=== PATIENT | male | born 1945 | race Caucasian/White ===

== ENCOUNTER 2017-05-05 16:01 | Emergency (ER) | payer MEDICARE, OTHER ==
[2017-05-05 17:06] LABS: BASOPHILS 0.4 % (0-2); EOSINOPHILS 5.1 % (0-7); HEMATOCRIT 42.5 % (42.0-54.0); LYMPHOCYTES 27.9 % (15-50); MCHC 32.9 g/dL (31.0-37.0); MCV 91.2 fL (80.0-100.0); MEAN PLATELET VOLUME 10.1 fL (7.4-10.4); MONOCYTES 8.7 % (2-11); NEUTROPHILS 57.9 % (40-80); PLATELET COUNT 121 10x3/uL (130-400); RBC 4.66 10x6/uL (4.20-6.10); RDW 12.9 % (11.5-14.5); WBC 5.1 10x3/uL (4.8-10.8)
[2017-05-05 17:40] LABS: ALBUMIN 3.7 g/dL (3.4-5.0); ANION GAP 11.9 mmol/L (8-16); BILIRUBIN - TOTAL 0.32 mg/dL (0.2-1.3); CALCIUM 8.8 mg/dL (8.5-10.1); CARBON DIOXIDE 26.4 mmol/L (21.0-32.0); CREATININE - SERUM 1.6 mg/dL (0.6-1.3); POTASSIUM - SERUM 4.3 mmol/L (3.5-5.1); PROTEIN - SERUM 6.6 g/dL (6.4-8.2)
== END 2017-05-05 20:04 | disposition home or self-care (01) ==
LOC: D.ER 16:01
PROVIDERS: Nurse Practitioner Family
DX: R10.9 Unspecified abdominal pain (principal); R14.0 Abdominal distension (gaseous); I10 Essential (primary) hypertension

== ENCOUNTER → 2018-01-25 12:31 | Outpatient (CLI) | payer MEDICARE, OTHER | END | disposition home or self-care (01) | LOC: D.RAD 12:31 | DX: M54.5 Low back pain (principal) ==

== ENCOUNTER → 2019-05-24 07:02 | Outpatient (CLI) | payer MEDICARE, OTHER | END | disposition home or self-care (01) | LOC: D.CT 05-17 09:30 | PROVIDERS: ATTEND Internal Medicine Gastroenterology | DX: I87.9 Disorder of vein, unspecified (principal); R10.9 Unspecified abdominal pain; R09.89 Other specified symptoms and signs involving the circulatory and respiratory systems ==

== ENCOUNTER 2019-07-20 19:32 | Inpatient (IN) | payer MEDICARE, OTHER ==
[~2019-07-20] VITALS: Ht 175.3 cm; Wt 83.0 kg
--- NOTE | ~2019-07-20 | HEMODYNAMI ---
PATIENT:RYAN JUDD MEDICAL RECORD: [id number] : 41 LOCATION:[id number] ADMISSION DATE: 07/20/19 Generatedon:07/21/201915:00 Patient name: RYAN JUDD Patient #: [id number] SSN: : 1945 Date of study: 07/21/2019 Page: Of Hemodynamic Procedure Report Patient Data Patient Demographics Procedure consent was obtained First Name: RYAN Gender: Male Last Name: DUTCH : 1945 Middle Initial: F Age: 73 year(s) Patient #: [id number] Race: Unknown Additional ID: [id number] Contact details Address: [address] [place] [address] State: [place] City: [place] Zip code: [address] Past Medical History Allergies Allergen Reaction Date Comments Reported Other allergy 07/21/2019 sedation meds, patient unsure of which ones Admission Admission Data Admission Date: 07/20/2019 Admission Time: 20:12 Room #: D.[id number] Height (in.): 69 BSA: 1.99 (m2) Height (cm.): 175.26 BMI: 27.02 (kg/m2) Weight (lbs.): 183 Weight (kg.): 83.01 Procedure Procedure Types Cath Procedure Peripheral Cath Diagnostic Procedure Piano Tuner Peripheral Procedures Biliary PTC Procedure Description Procedure Date Procedure Date: 07/21/2019 Procedure Start Time: 14:12 Procedure Staff Name Function Brendon Kimbrough MD Performing Physician Mary Badillo RT Cylinder Batcher Robyn Jesus RN Nurse Jordan Yu RT Scrub Delon Quispe Additional personnel Procedure Data Cath Procedure Fluoroscopy Diagnostic fluoroscopy Total fluoroscopy Time: 9 time: 9 min min Diagnostic fluoroscopy Total fluoroscopy dose: 206 dose: 206 mGy mGy Contrast Material Contrast Material Type Amount (ml) Isovue 300 20 Procedure Medications Medication Administration Route Dosage Heparin Flush Bag added to field 2 bags (1000units/500ml NS) Lidocaine 1% added to field 20 Ancef (1Gm/50ml NS) I.V.P.B 2 g Rocephin I.V. 1 g Hemodynamics Rest BSA: 1.99 (m2) O2 Consumption: Estimated: 225.37 (ml/min) O2 Consumption indexed : Estimated:113.25 (ml/min/m) Heart Rate: 66 (bpm) Snapshots Pre Cath Intra NCS Post Cath Vital Signs Time Heart Resp SPO2 etCO2 NIBP (mmHg) Rhythm Pain Sedation Rate (ipm) (%) (mmHg) Status Level (bpm) 13:46:43 58 13 100 21.8 135/61(109) NSR 0 (11) 10(A) , No pain 13:50:57 65 13 96 0 99/56(69) NSR 0 (11) 10(A) , No pain 13:55:05 64 15 97 0 92/47(64) NSR 0 (11) 10(A) , No pain 13:59:10 65 16 98 0 82/45(62) NSR 0 (11) 10(A) , No pain 14:03:14 66 16 98 0 74/44(58) NSR 0 (11) 10(A) , No pain 14:07:53 70 17 98 0 96/49(67) NSR 0 (11) 10(A) , No pain 14:12:09 67 17 98 0 83/47(68) NSR 0 (11) 10(A) , No pain 14:16:09 67 17 98 0 96/54(73) NSR 0 (11) 10(A) , No pain 14:20:14 69 17 98 0 92/51(66) NSR 0 (11) 10(A) , No pain 14:24:18 67 16 97 0 92/51(69) NSR 0 (11) 10(A) , No pain 14:28:24 65 16 97 0 94/48(71) NSR 0 (11) 10(A) , No pain 14:32:30 65 16 97 0 102/49(78) NSR 0 (11) 10(A) , No pain 14:36:37 67 16 97 0 106/55(83) NSR 0 (11) 10(A) , No pain 14:40:43 70 18 97 0 118/64(89) NSR 0 (11) 10(A) , No pain 14:44:55 67 18 97 0 116/58(87) NSR 0 (11) 10(A) , No pain 14:49:07 65 17 98 0 118/59(94) NSR 0 (11) 10(A) , No pain 14:53:19 61 15 98 0 118/57(92) NSR 0 (11) 10(A) , No pain 14:57:20 0 No Cuff NSR 0 (11) 10(A) , No pain Medications Time Medication Route Dose Verified Delivered Reason Notes Eff ectiveness by by 13:39:11 Heparin Flush added 2 Brendon Olivas used for Bag to bags Kaylan Kimbrough MD procedure (1000units/500ml field MD NS) 13:39:22 Lidocaine 1% added 20ml Brendon Olivas for local to vial Kaylan Kimbrough MD anesthetic field 14:01:18 Ancef (1Gm/50ml I.V.P.B 2 g Brendon Carlson Per NS) Edin Kimbrough RN physician 14:01:41 Rocephin I.V. 1g Brendon Carlson Per Edin Kimbrough RN physician Procedure Log Time Note 13:32:23 Patient Height : 69 inches 13:32:28 Patient Weight : 183 lbs 13:33:16 Time tracking: Regular hours (M-F 7:00 - 5:00) 13:39:11 Heparin Flush Bag (1000units/500ml NS) 2 bags added to field was administered by Brendon Kimbrough MD; used for procedure; Verbal order read back and verified. 13:39:22 Lidocaine 1% 20ml vial added to field was administered by Brendon Kimbrough MD; for local anesthetic; Verbal order read back and verified. 13:45:10 Plan of Care:Hemodynamics will remain stable., Cardiac rhythm will remain stable., Comfort level will be maintained., Respiratory function will remain adequate., Patient/ family verbilizes understanding of procedure., Procedure tolerated without complication., Recovers from procedure without complications.. 13:45:18 Patient received from Med/Surg to IR Alert and oriented. Tansferred to table in Supine position. 13:45:21 Signed procedure consent form obtained from patient. 13:45:26 H&P Date Dictated: 07/21/2019 Within 30 days and on chart.. 13:45:31 Warm blankets applied, and nae hugger turned on for patient comfort. 13:45:33 ECG and BP/O2 sat monitors applied to patient. 13:45:35 Vital chart was started 13:45:37 Baseline sample Acquired. :45:40 Full Disclosure recording started 13:45:41 - 13:45:43 Pre-procedure instructions explained to patient. 13:45:43 Pre-op teaching completed and patient verbalized understanding. 13:45:46 Family unavailable. 13:45:49 Patient NPO since Midnight. 13:46:33 Patient allergic to Other allergysedation meds, patient unsure of which ones 13:46:37 Is the patient allergic to Iodine/contrast media? No. 13:46:44 Patient diabetic? No. 13:46:45 - 13:46:48 ----Pre-sedation anethsthesia assessment.----see anesthesia notes for monitoring of patient during procedure 13:47:18 - 13:47:29 Right abdomen area was prepped with chlora-prep and draped in sterile fashion 13:47:40 Use device set IR Diagnostic 13:47:42 Tegaderm 4 x 4 ([id number]) opened to sterile field. 13:47:43 Sterile Angiographic Pack opened to sterile field. 13:47:44 Bag Decanter () opened to sterile field. 13:47:51 - 13:48:33 3a) 45-59 Moderately reduced kidney function. 13:49:03 Maximum allowable contrast dose (3.7 X eGFR X 0.75)133 ml. 13:49:10 Fire Safety Assessment: A--An alcohol-based skin anteseptic being used preoperatively., C--Open oxygen or nitrous oxide is being used. 13:49:13 - 14:01:18 Ancef (1Gm/50ml NS) 2 g I.V.P.B was administered by Robyn Jesus RN; Per physician; Verbal order read back and verified. 14:01:41 Rocephin 1g I.V. was administered by Robyn Jesus RN; Per physician; Verbal order read back and verified. 14:06:19 NITINOL .018 80cm wire ([id number]) opened to sterile field. 14:06:27 KIT, INTRODUCER ACCUSTICK II W/C ([id number]) opened to sterile field. 14:11:49 Physician arrived 14:11:51 --------ALL STOP TIME OUT------ 14:11:51 Final Timeout: patient, procedure, and site verified with staff and physician. All members of the team are in agreement. 14:12:08 Procedure started. 14:12:14 Local anesthetic to Abdominal area with Lidocaine 1% by Brendon Kimbrough MD.INITIAL ACCESS ONLY 14:16:02 CHIBA 22 X 15 needle opened to sterile field. 14:29:14 GLIDE WIRE Angled Super Stiff 180cm ([id number]) opened to sterile field. 14:32:46 GLIDE CATHETER 5FR ANGLED 65cm (CG507) opened to sterile field. 14:33:23 ROADRUNNER .035 145 glide wire ([id number]) opened to sterile field. 14:33:36 AMPLATZ Super stiff 180cm wire ([id number]) opened to sterile field. 14:37:56 STOPCOCK 3-Way Large Bore ([id number]) opened to sterile field. 14:37:57 Cook BILIARY 10.2 FR drainage catheter ([id number]) opened to sterile field . 14:37:58 BAG, DRAINAGE EMPTY 600ML W/LUCIA (MIP962) opened to sterile field. 14:44:02 Procedure ended.(Physican Out) 14:44:32 Fluoroscopy time 09.00 minutes. 14:44:37 Fluoroscopy dose: 206 mGy 14:44:37 Flurop Dose total: 206 14:44:45 Contrast amount:Isovue 300 20ml. 15:00:29 Vital chart was stopped Device Usage Item Name Manufacture Quantity Catalog Hospital Part Current Minimal Lot# / Number Charge Number Stock Stock Serial# Code Tegaderm 4 x 3M 1 1626W [id number] 5 4 (1626W) Sterile Cardinal 1 [id number] 344856 214106 5 Angiographic Health Pack Bag Decanter Microtek 1 2001S 191202 09113 279654 5 (2001S) Medical Inc. NITINOL .018 Medtronic 1 [id number] 741885 976488 5 80cm wire ([id number]) KIT, [place] 1 [id number] 001150 931896 237356 5 INTRODUCER Scientific ACCUSTICK II W/C ([id number]) CHIBA 22 X Cook Medical 1 R18129 261888 310099 5 [id number] 15 needle GLIDE WIRE Terumo 1 BC8227 068843 071036 5 Angled Super Stiff 180cm (PV2600) GLIDE Terumo 1 CG507 461965 624704 5 CATHETER 5FR ANGLED 65cm (CG507) [facility] 1 L84683 178570 785518 940673 5 [id number] .035 145 glide wire (X59983) AMPLATZ [place] 1 [id number] 931373 490507 126333 5 Super stiff Scientific 180cm wire ([id number]) [facility] 1 C75761 203144 6359 407717 5 [id number] 3-Way Large Bore (G74146) Cook BILIARY [facility] 1 D64809 914490 206533 669306 5 [id number] 10.2 FR drainage catheter (X86056) BAG, Merit 1 VZO921 943740 129057 024849 5 [id number] DRAINAGE Medical EMPTY 600ML W/LUCIA (ACD854) Signature Audit [place] Stage Time Signature Unsigned Intra-Procedure 07/21/2019 Mary Badillo 3:00:26 PM RT(R) [facility] [address] [place] [address]
[2019-07-20] MEDS ORDERED: ALTACE10 MG PO (19:44)
[2019-07-20] MEDS ORDERED: NORVASC5 MG PO (19:44)
[2019-07-20] MEDS ORDERED: ZOFRAN4 MG PO (19:45)
[2019-07-20] MEDS ORDERED: OMEPRAZOLE20 M1 PO (19:45)
[2019-07-20] MEDS ORDERED: TYLENOL W/CODEI1 TAB PO (19:45)
[2019-07-20] MEDS ORDERED: TIROSINT88 MCG PO (19:46)
[2019-07-20 20:11] VITALS: BP 126/51
[2019-07-20 20:22] LABS: BASOPHILS 0.3 % (0-2); EOSINOPHILS 2.9 % (0-7); HEMOGLOBIN 9.7 g/dL (13.5-17.5); IMMATURE GRANULOCYTES 0.6 % (0-5); LYMPHOCYTES 13.2 % (15-50); MCHC 30.3 g/dL (31.0-37.0); MCV 92.2 fL (80.0-100.0); MEAN PLATELET VOLUME 9.3 fL (7.4-10.4); MONOCYTES 6.4 % (2-11); NEUTROPHILS 76.6 % (40-80); PLATELET COUNT 350 10x3/uL (130-400); RBC 3.47 10x6/uL (4.20-6.10); RDW 16.7 % (11.5-14.5)
[2019-07-20 20:30] LABS: APTT 26.4 SECONDS (22.8-39.4); INR 1.17 (0.85-1.17); PROTIME 14.8 SECONDS (11.6-15.0)
[2019-07-20 20:31] LABS: CALC OSMOLALITY 284 mosm/kg (275-300); CARBON DIOXIDE 26.9 mmol/L (21.0-32.0); CHLORIDE - SERUM 101 mmol/L (98-107); CREATININE - SERUM 1.8 mg/dL (0.6-1.3); GLUCOSE 169 mg/dL (74-106); SODIUM 140 mmol/L (136-145); UREA NITROGEN 17 mg/dL (7-18); eGFR NON AFRICAN AMERICAN 39 mL/min (90-120)
[2019-07-20 20:48] LABS: ALBUMIN 2.3 g/dL (3.4-5.0); ALKALINE PHOSPHATASE 1245 U/L (30-120); ALT (SGPT) 199 U/L (10-68); AMYLASE - SERUM 90 U/L (25-115); BILIRUBIN - TOTAL 17.56 mg/dL (0.2-1.3); CKMB 1.4 U/L (0.0-3.6); CREATINE KINASE 50 UL (21-232); LIPASE 1193 U/L (73-393); MAGNESIUM - SERUM 1.9 mg/dL (1.8-2.4); TROPONIN-I < 0.017 ng/mL (0.000-0.060)
--- NOTE | 2019-07-20 22:30 | NUR ---
PATIENT ARRIVED VIA WHEELCHAIR ACCOMPANIED BY ER STAFF. NO S/S OF ACUTE DISTRESS. PATIENT C/O NAUSEA AND ABDOMINAL PAIN. PATIENT HAS IV IN RIGHT FOREARM, NORMAL SALINE @ 125 ML/HR. IV IS PATENT WITHOUT REDNESS, SWELLING, OR TENDERNESS. PATIENT IS JAUNDICED. PATIENT AMBULATED TO BATHROOM WITHOUT ASSISTANCE. PATIENT STATES THAT HE WAS ALLERGIC TO SOME KIND OF SEDATIVE THAT WAS USED FOR SURGERY THAT MADE HIM VOMIT PROFUSELY. HE SAID HE COUDLN'T REMEMBER THE NAME OF THE SEDATIVE.
[2019-07-20 23:26] VITALS: BP 137/57; BMI 27.0
[2019-07-21] VITALS (12 sets, daily range): BP systolic 116–171; BP diastolic 49–76; Ht 175.3 cm; Wt 83.0 kg
[2019-07-21 04:35] LABS: BASOPHILS 0.3 % (0-2); EOSINOPHILS 3.6 % (0-7); HEMATOCRIT 29.6 % (42.0-54.0); IMMATURE GRANULOCYTES 0.5 % (0-5); LYMPHOCYTES 15.9 % (15-50); MCHC 30.4 g/dL (31.0-37.0); MCV 91.9 fL (80.0-100.0); MEAN PLATELET VOLUME 9.6 fL (7.4-10.4); NEUTROPHILS 72.7 % (40-80); PLATELET COUNT 293 10x3/uL (130-400); RBC 3.22 10x6/uL (4.20-6.10); RDW 16.6 % (11.5-14.5); WBC 6.6 10x3/uL (4.8-10.8)
[2019-07-21 05:07] LABS: ANION GAP 11.1 mmol/L (8-16); BILIRUBIN - TOTAL 14.1 mg/dL (0.2-1.3); CALCIUM 8.2 mg/dL (8.5-10.1); CARBON DIOXIDE 27.3 mmol/L (21.0-32.0); CREATININE - SERUM 1.5 mg/dL (0.6-1.3); POTASSIUM - SERUM 3.4 mmol/L (3.5-5.1); PROTEIN - SERUM 5.5 g/dL (6.4-8.2)
[2019-07-21 05:21] LABS: ALBUMIN 1.7 g/dL (3.4-5.0)
[2019-07-21 08:30] LABS: INR 1.17 (0.85-1.17); PROTIME 14.8 SECONDS (11.6-15.0)
[2019-07-21 09:08] LABS: APTT 34.4 SECONDS (22.8-39.4)
--- NOTE | 2019-07-21 13:07 | NUR ---
PATIENT PREOPED AT THIS TIME.
--- NOTE | 2019-07-21 19:02 | NUR ---
PATIENT IN BED WITH IV INTACT. NO COMPLAINTS OR SIGNS OF DISTRESS. EMPTIED DRAIN. WANTS PAIN MEDS SOON CAN HAVE THEM. REPORT GIVEN TO WAREHOUSE HANDLER. CALL LIGHT WITHIN REACH.
--- NOTE | 2019-07-21 20:00 | NUR ---
PATIENT RESTING IN BED WITH EYES CLOSED. NO S/S OF DISTRESS. NO C/O AT THIS TIME. PATIENT HAS IV IN RIGHT FOREARM, NORMAL SALINE @ 125 ML/HR. IV IS PATENT WITHOUT REDNESS, SWELLING, OR TENDERNESS. PATIENT HAS A DRAIN TO THE RIGHT SIDE, DRESSING C/D/I. DRAIN FLUSHES WELL. PATIENT HAS A DISTENTED STOMACH. PATIENT HAS DARK URINE. PATIENT HAS YELLOW SCLERA, AND BODY IS YELLOW. PATIENT IS ON A FULL LIQUID DIET. CALL LIGHT WITHIN REACH. WILL CONTINUE TO MONITOR.
[2019-07-22] VITALS: BP 115/52
--- NOTE | 2019-07-22 03:47 | NUR ---
I have reviewed this patient and I concur with the Shift Assessment completed by the Licensed Practical Nurse today this shift.
[2019-07-22 04:00] VITALS: BP 136/63
[2019-07-22 07:00] LABS: BASOPHILS 0.1 % (0-2); EOSINOPHILS 2.3 % (0-7); HEMATOCRIT 28.1 % (42.0-54.0); HEMOGLOBIN 8.4 g/dL (13.5-17.5); IMMATURE GRANULOCYTES 0.4 % (0-5); LYMPHOCYTES 11.9 % (15-50); MCH 28.2 pg (26.0-34.0); MCHC 29.9 g/dL (31.0-37.0); MEAN PLATELET VOLUME 9.6 fL (7.4-10.4); MONOCYTES 4.7 % (2-11); NEUTROPHILS 80.6 % (40-80); PLATELET COUNT 305 10x3/uL (130-400); RBC 2.98 10x6/uL (4.20-6.10); RDW 16.8 % (11.5-14.5); WBC 7.7 10x3/uL (4.8-10.8)
[2019-07-22 07:05] LABS: MCV 94.3 fL (80.0-100.0)
[2019-07-22 07:11] LABS: CEA 2.7 ng/mL (0.0-4.7)
[2019-07-22 07:21] LABS: ALBUMIN 1.7 g/dL (3.4-5.0); ANION GAP 13.2 mmol/L (8-16); BILIRUBIN - TOTAL 7.69 mg/dL (0.2-1.3); CALCIUM 8.1 mg/dL (8.5-10.1); CARBON DIOXIDE 24.5 mmol/L (21.0-32.0); CREATININE - SERUM 1.4 mg/dL (0.6-1.3); POTASSIUM - SERUM 3.7 mmol/L (3.5-5.1); PROTEIN - SERUM 5.8 g/dL (6.4-8.2)
--- NOTE | 2019-07-22 08:21 | NUR ---
ALERT AND ORIENTED. LUNGS CLEAR BILATERALLY. HEART SOUNDS S1 AND S2 HEARD IN ALL WILLS. BOWEL SOUNDS ACTIVE X 4. BILI DRAIN TO RIGHT SIDE PATENT. SKIN INTACT WITHOUT REDNESS. IV TO RFA PATENT WITHOUT REDNESS. DENIES NEEDS. BED LOW. CALL THEODORE AND PERSONAL ITEMS IN REACH. WILL CONTINUE TO MONITOR.
[2019-07-22 08:32] VITALS: BP 144/70
--- NOTE | 2019-07-22 09:34 | HP ---
PATIENT: RYAN JUDD MEDICAL RECORD: [id number] ACCOUNT: [id number] LOCATION:D.MS [facility]39 : 41 ADMISSION DATE: 07/20/19 PCP: MIGUE HERNÁNDEZ DO HISTORY AND PHYSICAL EXAMINATION REASON FOR ADMISSION: Abdominal pain and jaundice. HISTORY OF PRESENT ILLNESS: The patient is a 73-year-old male who lives in [place]. He is a patient of Dr. Migue Hernández's. He had noticed in February some vague left upper abdominal discomfort. He had an EGD to evaluate this showing esophageal stricture. He had dilatation by Dr. Lezama. His pain persisted. He ultimately had an ultrasound of his abdomen and a PIPIDA scan that showed decreased ejection fraction. CT scan ultimately showed a mass in his head of his pancreas and liver metastases. Biopsies were done at [facility], which returned stage IV pancreatic cancer. He became more jaundiced. His urine turned Coke colored and more nausea and pain. He went to Dr. Rangel office yesterday afternoon and Dr. Rangel wanted to direct admit him for his concerns of biliary stenosis and a bilirubin of 14.1. He denies fever. He has had bryan-colored stools. Admits to mild nausea and Tylenol #3 has been helping his pain. Says he has diarrhea every 3 days. PAST MEDICAL HISTORY: Hypothyroidism, essential hypertension, right bundle branch block with negative change in EKG recently, history of extrinsic asthma, eosinophilic esophagitis, multiple food and respiratory allergies, esophageal stricture. PAST SURGICAL HISTORY: T&A as a child, septoplasty in 1989. SOCIAL HISTORY: He is . His is 80 and she is a retired dentist. He has an engineering degree and retired from [employer] from [employer] to this area. He is nonsmoker, nondrinker lifelong. FAMILY HISTORY: Mother of CHF. Father of laryngeal cancer from smoking and drinking. He has one brother in good health. HOME MEDICATIONS: Altace 10 mg a day, amlodipine 5 mg a day, Tylenol #3 one every 6 hours for pain, Prilosec 20 mg b.i.d., Zofran 4 mg every 6 hours for nausea, levothyroxine 88 mcg p.o. every morning before meals. ALLERGIES: SOME TYPE OF SEDATIVE AND MORPHINE MAKES HIS ABDOMEN HURT. REVIEW OF SYSTEMS: GENERAL: He has been fatigued and this February he has lost from 209 pounds to 183. Denies fever. HEENT: No recent visual change, sinus congestion or sore throat. He said his eyes have been yellow. RESPIRATORY: No severe cough. CARDIAC: No exertional chest pain, claudication or edema. GASTROINTESTINAL: He has had intermittent nausea with left upper quadrant abdominal pain as mentioned. He has had intermittent loose stools that are bryan-colored. Denies vomiting. Did have dysphagia that improved with esophageal dilatation in May. CARDIAC: No exertional rest chest pain, claudication or edema. MUSCULOSKELETAL: Denies arthralgias. NEUROLOGIC: Denies headache, visual change, history of seizures, memory loss or HISTORY AND PHYSICAL [id number] RYAN JUDD confusion. GENITOURINARY: Nocturia once nightly. No dysuria. Urine has been Coke colored. INTEGUMENT: Yellow skin recently occurring around June 20 when his liver functions elevated. PSYCHIATRIC: Denies depress mood. PHYSICAL EXAMINATION: VITAL SIGNS: Temperature is 98.1 Fahrenheit, pulse 70, respirations 17, blood pressure 137/57 with a sat 97% on room air. GENERAL: The patient is alert and oriented. Normocephalic with male pattern balding. His eyes show mild icterus. Pupils are reactive. Oropharynx unremarkable. NECK: Supple. CHEST: Clear. HEART: Regular without murmur. ABDOMEN: Mildly distended with active bowel sounds. He is tender in the epigastrium and left upper quadrant. No masses palpable. GENITOURINARY: Unremarkable. RECTAL: Deferred. EXTREMITIES: No CC&E. NEUROLOGICAL: Oriented to person, place, and time. Cranial nerves are grossly intact. Gait was not tested. LABORATORY AND DIAGNOSTIC DATA: White count is 8000 with H&H of 9.7 and 32.0, platelet count 350,000. Chemistry; potassium is low at 3. Sodium is 140, creatinine is 1.8, BUN is 9, glucose is 169, nonfasting. Total bilirubin is 17.56. AST is 266, ALT is 199, alkaline phosphatase is 1245. Liver functions were normal at the end of May. Lipase is 1193. CT scan done at [facility] was interpreted by Dr. Rangel and reportedly shows pancreatic mass approximately 3 cm in size with hepatic metastases. Chest x-ray here is clear. ASSESSMENT: 1. Obstructive jaundice due to stage IV pancreatic cancer. 2. Hypokalemia. 3. Anemia. 4. History of EGD with esophageal stricture. 5. Hypertension. 6. History of chronic right bundle branch block. 7. Gastroesophageal reflux disease. 8. Acute renal insufficiency. PLAN: Dr. Rangel is scheduling with IR for biliary drainage today. Discussed with the patient. He did have some issues with morphine last night, we will switch to Dilaudid for pain. TRANSINT:[id number] Voice Confirmation ID: [id number] DOCUMENT ID: [id number] HISTORY AND PHYSICAL [id number] RYAN JUDD TIMOTHY MD at 0934 CC: [id number] DICTATION DATE: 07/21/19 07 COMMUNICATIONS DIRECTOR: 07/21/19 0915 ADM IN [facility] [address] [place] [address]
[2019-07-22 11:47] VITALS: BP 137/65
[2019-07-22 15:48] VITALS: BP 110/50
--- NOTE | 2019-07-22 15:57 | NUR ---
RESTING IN BED. DENIES NEEDS. WILL CONTINUE TO MONITOR.
[2019-07-22 20:00] VITALS: BP 120/60
[2019-07-23] VITALS: BP 126/58
[2019-07-23 06:51] LABS: BASOPHILS 0.3 % (0-2); EOSINOPHILS 4.9 % (0-7); HEMATOCRIT 28.3 % (42.0-54.0); HEMOGLOBIN 8.5 g/dL (13.5-17.5); IMMATURE GRANULOCYTES 0.8 % (0-5); LYMPHOCYTES 18.1 % (15-50); MCH 28.3 pg (26.0-34.0); MCV 94.3 fL (80.0-100.0); MEAN PLATELET VOLUME 9.5 fL (7.4-10.4); NEUTROPHILS 69.9 % (40-80); PLATELET COUNT 344 10x3/uL (130-400); WBC 7.3 10x3/uL (4.8-10.8)
--- NOTE | 2019-07-23 07:05 | NUR ---
ALERT AND ORIENTED. LUNGS CLEAR BILATERALLY. HEART SOUNDS S1 AND S2 HEARD IN ALL WILLS. BOWEL SOUNDS ACTIVE X 4. BILI DRAIN TO RIGHT SIDE PATENT. SKIN OTHERWISE INTACT WITHOUT REDNESS. IV TO RFA PATENT WITHOUT REDNESS. DENIES NEEDS. BED LOW. CALL THEODORE AND PERSONAL ITEMS IN REACH. WILL CONTINUE TO MONITOR.
[2019-07-23 07:23] LABS: ANION GAP 11.3 mmol/L (8-16); CALCIUM 8.7 mg/dL (8.5-10.1); CREATININE - SERUM 1.3 mg/dL (0.6-1.3); POTASSIUM - SERUM 3.3 mmol/L (3.5-5.1)
[2019-07-23 07:38] VITALS: BP 145/55
--- NOTE | 2019-07-23 10:16 | NUR ---
RESTING IN BED. DENIES NEEDS. WILL CONTINUE TO MONITOR.
[2019-07-23 11:27] LABS: ALBUMIN 1.9 g/dL (3.4-5.0); BILIRUBIN - DIRECT 5.19 mg/dL (0.00-0.30); BILIRUBIN - INDIRECT 1.29 mg/dL (0.00-1.00); BILIRUBIN - TOTAL 6.48 mg/dL (0.2-1.3); PROTEIN - SERUM 6.2 g/dL (6.4-8.2)
[2019-07-23 13:03] VITALS: BP 152/69
[2019-07-23 17:32] VITALS: BP 140/62
[2019-07-23 20:00] VITALS: BP 136/60
[2019-07-24] VITALS: BP 114/69
[2019-07-24 04:00] VITALS: BP 150/62
[2019-07-24 05:40] LABS: ALBUMIN 1.8 g/dL (3.4-5.0); ANION GAP 12.6 mmol/L (8-16); BILIRUBIN - TOTAL 5.36 mg/dL (0.2-1.3); CALCIUM 8.2 mg/dL (8.5-10.1); CREATININE - SERUM 1.3 mg/dL (0.6-1.3); POTASSIUM - SERUM 3.6 mmol/L (3.5-5.1); PROTEIN - SERUM 5.9 g/dL (6.4-8.2)
--- NOTE | 2019-07-24 07:30 | NUR ---
PATIENT C/O NAUSEA, GAVE 25MG PHENERGAN IM TO LEFT VENTROGLUTEAL.
[2019-07-24 07:48] VITALS: BP 162/73
--- NOTE | 2019-07-24 07:59 | NUR ---
ALERT AND ORIENTED, SITTING UP IN CHAIR IN ROOM. BILI DRAIN TO LEFT ABDOMEN. EMPTIED 200ML. IV TO RIGHT FOREARM, NS INFUSING @ 75ML/HR. SITE PATENT WITHOUT REDNESS OR SWELLING. DENIES ANY NEEDS AT THIS TIME. CALL LIGHT IN REACH. WILL CONTINUE TO MONITOR.
[2019-07-24 12:27] VITALS: BP 155/75
--- NOTE | 2019-07-24 12:40 | NUR ---
SITTING UP EATING LUNCH. PATIENT IS WITHOUT DISTRESS.
--- NOTE | 2019-07-24 14:13 | NUR ---
Nutrition follow-up: Diet advanced to regular as tolerated over the weekend PO intake ~75% average of last 3 meals Labs reviewed Wt: 129# +BM Pt continues to have intermittent nausea, vomiting Will provide food choices and honor all food preferences. RDN following.
[2019-07-24 16:18] VITALS: BP 150/79
--- NOTE | 2019-07-24 19:00 | NUR ---
ALERT AND ORIENTED, RESTING IN BED WITH EYES OPEN. NO C/O PAIN. NO S/S OF ACUTE DISTRESS NOTED. IV INFILTRATED, DISCONTINUED IV CATHETER TIP INTACT. TRIED TO RESITE, UNSUCESSFUL. CALL LIGHT IN REACH. WILL CONTINUE TO MONITOR.
[2019-07-25] VITALS: BP 143/64
[2019-07-25 04:53] LABS: BASOPHILS 0.4 % (0-2); EOSINOPHILS 9.2 % (0-7); HEMOGLOBIN 8.6 g/dL (13.5-17.5); IMMATURE GRANULOCYTES 1.1 % (0-5); MCH 28.2 pg (26.0-34.0); MCHC 29.7 g/dL (31.0-37.0); MCV 95.1 fL (80.0-100.0); MEAN PLATELET VOLUME 9.4 fL (7.4-10.4); MONOCYTES 6.3 % (2-11); PLATELET COUNT 338 10x3/uL (130-400); RBC 3.05 10x6/uL (4.20-6.10); RDW 17.1 % (11.5-14.5); WBC 7.1 10x3/uL (4.8-10.8)
[2019-07-25 05:19] LABS: ALBUMIN 1.9 g/dL (3.4-5.0); ANION GAP 9.8 mmol/L (8-16); BILIRUBIN - TOTAL 5.01 mg/dL (0.2-1.3); CALCIUM 8.3 mg/dL (8.5-10.1); CARBON DIOXIDE 23.6 mmol/L (21.0-32.0); CREATININE - SERUM 1.3 mg/dL (0.6-1.3); POTASSIUM - SERUM 3.4 mmol/L (3.5-5.1); PROTEIN - SERUM 6.1 g/dL (6.4-8.2)
[2019-07-25 05:50] VITALS: BP 150/63
--- NOTE | 2019-07-25 07:15 | NUR ---
ALERT AND ORIENTED, RESTING IN BED WITH EYES OPEN. NO C/O PAIN. NO S/S OF ACUTE DISTRESS NOTED. DRAIN TO RIGHT SIDE, BROWN/PEREIRA DRAINAGE. UP AD IVAN. IV TO LEFT HAND, NS INFUSING @ 75ML/HR SITE PATENT WITHOUT REDNESS OR SWELLING. DENIES ANY NEEDS AT THIS TIME. CALL LIGHT IN REACH. WILL CONTINUE TO MONITOR.
[2019-07-25] MEDS ORDERED: PHENERGAN25 M1 PO (07:54)
[2019-07-25] MEDS ORDERED: TYLENOL W/CODEI1 TAB PO (07:57)
[2019-07-25] MEDS ORDERED: K-TAB10 MEQ PO (08:03)
[2019-07-25 09:16] VITALS: BP 142/70
--- NOTE | 2019-07-25 10:12 | MORECARE ---
CASE MANAGEMENT DISCHARGE SUMMARY PATIENT: RYAN JUDD UNIT: [id number] ADM DATE: 07/20/19 AGE: 73 : 43 SEX: M ROOM/BED: D.2239 AUTHOR: PEARL AL PHYSICIAN: REFERRING PHYSICIAN: MIKE NUÑEZ MD DATE OF SERVICE: 07/25/19 Discharge Plan Patient Name: RYAN JUDD Facility: [facility]:[place] : 1945 Planned Disposition: Home or Self Care Anticipated Discharge Date: Discharge Date: Expected LOS: Initial Reviewer: [email or web address] Initial Review Date: 07/20/2019 Generated: 07/25/19 11:11 am Comments DCP- Discharge Planning Updated by [email or web address]: Fior Wilkins on 07/25/19 9:[address] Patient Name: RYAN JUDD Admission Status: ER Accout number: [id number] Admission Date: 07-20-2019 : 1945 Admission Diagnosis:OBSTRUCTION OF BILE DUCT Attending: MIKE NUÑEZ Current LOS: 5 Anticipated DC Date: Planned Disposition: Home or Self Care Primary Insurance: MEDICARE A & B Discharge Planning Comments: CM met with patient to complete initial dc planning assessment. CM educated patient on the CM role and verbal consent given by patient to complete assessment. Patient lives at home with his , where he states he is independent with his care. At discharge patient plans to return home and feels this is a safe discharge. His will be driving him home. CM discussed availability of home health, rehab services, and medical equipment. IMM served and explained. Patient stated that Frida will be teaching his drain care. Patient denied known discharge needs at this time. CM will continue to follow and will assist as needed with dc plans/needs. [place]: Fior Wilkins DCPIA - Discharge Planning Initial Assessment Updated by [email or web address]: Fior Wilkins on 07/25/19 10:04 am * Is the patient Alert and Oriented? Yes * How many steps to enter\exit or inside your home? * PCP BETTY * Pharmacy [address] [facility] * Preadmission Environment Home with Family * ADLs Independent * Equipment None * List name and contact numbers for known caregivers / representatives who currently or will assist patient after discharge: YIMI () [phone] * Verbal permission to speak to the caregivers and representatives has been obtained from the patient. N/A * Community resources currently utilized None * Additional services required to return to the preadmission environment? No * Can the patient safely return to the preadmission environment? Yes * Has this patient been hospitalized within the prior 30 days at any hospital? No Coverage Notice Reviewer: [email or web address] Nevin Wilkins Notice Issued Date-Time: 07/25/2019 10:00 Notice Type: IM Discharge Notice Notice Delivered To: Patient Relationship to Patient: Manager Hospice Name: Delivery Method: HAND - Hand Delivered Roberta Days: Prior Verbal Notification: Recipient Understood Notice: Yes Recipient Signature: Yes Med Rec Note Co-signed by Attending: Coverage Notice Comment: Patient Name: RYAN JUDD Page [phone] at 1012 All edits/amendments must be made on the electronic document DICTATION DATE: 07/25/19 1011 CHILD LIFE THERAPIST: JOJO 07/25/19 1011 RPT#: [id number] DC DATE: STATUS: ADM IN [facility] [address] [place] [address] END OF REPORT
--- NOTE | 2019-07-25 12:30 | NUR ---
PATIENT DISCHARGED HOME WITH VIA WHEELCHAIR ACCOMPANIED BY HOSPITAL STAFF. DISCONTINUED IV, CATHETER TIP INTACT. DRAIN FLUSH EDUCATION PROVIDED TO AND PATIENT BY THIS NURSE AND INTERVENTIONAL RADIOLOGY. WENT OVER DISCHARGE INSTRUCTIONS WITH PATIENT AND , VERBALLY ACKNOWLEGDED INSTRUCTIONS. DENIES ANYTHING FURTHER.
--- NOTE | 2019-07-26 09:24 | MORECARE ---
CASE MANAGEMENT DISCHARGE SUMMARY PATIENT: RYAN JUDD UNIT: [id number] ADM DATE: 07/20/19 AGE: 73 : 43 SEX: M ROOM/BED: D.2239 AUTHOR: PEARL AL PHYSICIAN: REFERRING PHYSICIAN: MIKE NUÑEZ MD DATE OF SERVICE: 07/26/19 Discharge Plan Patient Name: RYAN JUDD Facility: [facility] : 1945 Planned Disposition: Home or Self Care Anticipated Discharge Date: Discharge Date: 07/25/2019 Expected LOS: Initial Reviewer: [email or web address] Initial Review Date: 07/20/2019 Generated: 07/26/19 10:24 am Comments DCP- Discharge Planning Updated by [email or web address]: Fior Wilkins on 07/25/19 9:[address] Patient Name: RYAN JUDD Admission Status: ER Accout number: [id number] Admission Date: 07-20-2019 : 1945 Admission Diagnosis:OBSTRUCTION OF BILE DUCT Attending: MIKE NUÑEZ Current LOS: 5 Anticipated DC Date: Planned Disposition: Home or Self Care Primary Insurance: MEDICARE A & B Discharge Planning Comments: CM met with patient to complete initial dc planning assessment. CM educated patient on the CM role and verbal consent given by patient to complete assessment. Patient lives at home with his , where he states he is independent with his care. At discharge patient plans to return home and feels this is a safe discharge. His will be driving him home. CM discussed availability of home health, rehab services, and medical equipment. IMM served and explained. Patient stated that Frida will be teaching his drain care. Patient denied known discharge needs at this time. CM will continue to follow and will assist as needed with dc plans/needs. Development Intern: Fior Wilkins DCPIA - Discharge Planning Initial Assessment Updated by [email or web address]: Fior Wilkins on 07/25/19 10:04 am * Is the patient Alert and Oriented? Yes * How many steps to enter\exit or inside your home? * PCP BETTY * Pharmacy [address] [facility] * Preadmission Environment Home with Family * ADLs Independent * Equipment None * List name and contact numbers for known caregivers / representatives who currently or will assist patient after discharge: YIMI () [phone] * Verbal permission to speak to the caregivers and representatives has been obtained from the patient. N/A * Community resources currently utilized None * Additional services required to return to the preadmission environment? No * Can the patient safely return to the preadmission environment? Yes * Has this patient been hospitalized within the prior 30 days at any hospital? No Coverage Notice Reviewer: [email or web address] Nevin Wilkins Notice Issued Date-Time: 07/25/2019 10:00 Notice Type: IM Discharge Notice Notice Delivered To: Patient Relationship to Patient: Jewelry Inspector Name: Delivery Method: HAND - Hand Delivered Roberta Days: Prior Verbal Notification: Recipient Understood Notice: Yes Recipient Signature: Yes Med Rec Note Co-signed by Attending: Coverage Notice Comment: Last DP export: 07/25/19 9:12 am Patient Name: RYAN JUDD Page 40598 at 0924 All edits/amendments must be made on the electronic document DICTATION DATE: 07/26/19923 CUFFING MACHINE OPERATOR: JOJO 07/26/19923 RPT#: [id number] DC DATE:07/25/19 STATUS: DIS IN [facility] [address] [place] [address] END OF REPORT
== END 2019-07-25 12:46 | disposition home or self-care (01) | DRG 445 ==
LOC: D.ER 19:32 → D.MS 20:12
PROVIDERS: Family Medicine; General Practice; Internal Medicine Hematology & Oncology; Internal Medicine Medical Oncology; ADMIT Family Medicine; ATTEND Family Medicine
PROC: 0F9730Z Drainage of Common Hepatic Duct with Drainage Device, Percutaneous Approach (ICD-10-PCS; principal; 2019-07-21 14:00)
DX: K83.1 Obstruction of bile duct (principal); C25.0 Malignant neoplasm of head of pancreas; C78.7 Secondary malignant neoplasm of liver and intrahepatic bile duct; E87.6 Hypokalemia; N18.3 Chronic kidney disease, stage 3 (moderate); E03.9 Hypothyroidism, unspecified

== ENCOUNTER 2019-07-28 08:22 | Outpatient (CLI) | payer MEDICARE, OTHER ==
[~2019-07-28] VITALS: Ht 175.3 cm; Wt 77.3 kg
[~2019-07-28 08:22] MED LIST: ALTACE10 MG PO; K-TAB10 MEQ PO; NORVASC5 MG PO; OMEPRAZOLE20 M1 PO; PHENERGAN25 M1 PO; TIROSINT88 MCG PO; TYLENOL W/CODEI1 TAB PO; ZOFRAN4 MG PO
[2019-07-28 08:49] LABS: ANION GAP 22.4 mmol/L (8-16); CALCIUM 9.4 mg/dL (8.5-10.1); CARBON DIOXIDE 19.7 mmol/L (21.0-32.0); CREATININE - SERUM 6.2 mg/dL (0.6-1.3); POTASSIUM - SERUM 4.1 mmol/L (3.5-5.1)
[2019-07-28] MEDS ORDERED: BREO ELLIPTA 11 EACH INH (09:05)
[2019-07-28] MEDS ORDERED: VENTOLIN HFA [SP8 GM INH (09:05)
[2019-07-28] MEDS ORDERED: CENTRUM MEN'S1 EACH PO (09:06)
[2019-07-28] MEDS ORDERED: VITAMIN B-121000 MCG PO (09:07)
[2019-07-28 09:14] VITALS: BP 96/44; Ht 175.3 cm; Wt 77.3 kg
[2019-07-28 09:14] LABS: HEMATOCRIT 33.8 % (42.0-54.0); HEMOGLOBIN 10.5 g/dL (13.5-17.5); LYMPHOCYTES 10.8 % (15-50); MCH 29.5 pg (26.0-34.0); MCHC 31.1 g/dL (31.0-37.0); MCV 94.9 fL (80.0-100.0); MEAN PLATELET VOLUME 9.1 fL (7.4-10.4); NEUTROPHILS 77.9 % (40-80); RBC 3.56 10x6/uL (4.20-6.10); RDW 17.1 % (11.5-14.5); WBC 12.1 10x3/uL (4.8-10.8)
[2019-07-28 09:15] LABS: PLATELET COUNT 577 10x3/uL (130-400)
[2019-07-28 09:45] LABS: APTT 40.5 SECONDS (22.8-39.4); INR 1.18 (0.85-1.17)
--- NOTE | 2019-07-28 10:26 | NUR ---
DR. JUAREZ CANCELLED FOR JUMP IN CREATNINE LEVELS AND HYPOTENSION. CANCEL PROCEDURE AND SEND TO ER FOR FURTHER EVALUATION.
[2019-07-28] MEDS ORDERED: BENADRYL25 MG PO (14:58)
== END 2019-07-28 10:26 | disposition home or self-care (01) ==
LOC: D.SP 08:22 → D.RAD 10:30
PROVIDERS: ATTEND General Practice
DX: C25.9 Malignant neoplasm of pancreas, unspecified (principal); I95.9 Hypotension, unspecified; Z53.9 Procedure and treatment not carried out, unspecified reason

== ENCOUNTER 2019-07-28 10:49 | Inpatient (IN) | payer MEDICARE, OTHER ==
[~2019-07-28] VITALS: Ht 175.3 cm; Wt 86.1 kg
--- NOTE | ~2019-07-28 | HEMODYNAMI ---
PATIENT:RYAN JUDD MEDICAL RECORD: [id number] : 41 LOCATION:[facility] D.2109 ADMISSION DATE: 07/28/19 Generatedon:07/28/201918:14 Patient name: RYAN JUDD Patient #: [id number] SSN: : 1945 Date of study: 07/28/2019 Page: Of Hemodynamic Procedure Report Patient Data Patient Demographics Procedure consent was obtained First Name: RYAN Gender: Male Last Name: DUTCH : 1945 Middle Initial: F Age: 73 year(s) Patient #: [id number] Race: Unknown Additional ID: [id number] Contact details [address]: [address] [place] [address] State: [place] City: [place] Zip code: [address] Past Medical History Allergies Allergen Reaction Date Comments Reported Other allergy 07/21/2019 sedation meds, patient unsure of which ones Admission Admission Data Admission Date: 07/28/2019 Admission Time: 12:48 Room #: D.2109 Procedure Procedure Types Cath Procedure Peripheral Cath Diagnostic Procedure Biliary Cholangio Thru Existing Procedure Description Procedure Date Procedure Date: 07/28/2019 Procedure Start Time: 18:02 Procedure Staff Name Function Brendon Kimbrough MD Performing Physician MARY TITUS RT Monitor Jordan Yu RT Scrub Alcira Perez RN Nurse Procedure Data Cath Procedure Fluoroscopy Diagnostic fluoroscopy Total fluoroscopy Time: 2.4 time: 2.4 min min Contrast Material Contrast Material Type Amount (ml) Isovue 300 15 Hemodynamics Rest Pre Cath Intra NCS Post Cath Procedure Log Time Note 17:51:07 MARY TITUS RT (R) sent for patient. Start room use. 17:51:09 Time tracking: Regular hours (M-F 7:00 - 5:00) 17:51:15 Patient received from Med II to IR Alert and oriented. Tansferred to table in Supine position. 17:51:18 Signed procedure consent form obtained from patient. 17:51:19 Warm blankets applied, and nae hugger turned on for patient comfort. 17:51:21 Correct patient and procedure confirmed by team. 17:51:23 - 17:51:27 H&P Date Dictated: 07/28/2019 Within 30 days and on chart.. 17:51:29 Pre-procedure instructions explained to patient. 17:51:29 Pre-op teaching completed and patient verbalized understanding. 17:51:38 Patient NPO since Midnight. 17:52:23 Is the patient allergic to Iodine/contrast media? No. 17:54:10 IV patent on arrival in left wrist with 0.9% NaCl at KVO. 17:54:30 Right Abdomen was prepped with chlora-prep and draped in sterile fashion. 17:54:32 Alarms reviewed by Maggi Sweeney 17:54:33 Sharps counted by scrub and verified by Vance 17:54:35 - 17:54:44 Use device set IR Diagnostic 17:54:45 Bag Decanter (2002) opened to sterile field. 17:54:46 Sterile Angiographic Pack opened to sterile field. 17:54:46 Tegaderm 4 x 4 (1626W) opened to sterile field. 17:58:00 Physician arrived 17:58:01 --------ALL STOP TIME OUT------ 17:58:02 Final Timeout: patient, procedure, and site verified with staff and physician. All members of the team are in agreement. 17:58:09 Procedure started. 18:00:09 Full Disclosure recording started 18:01:10 GLIDE WIRE Angled Super Stiff 180cm (LU0313) opened to sterile field. 18:02:02 Local anesthetic to Abdominal area with Lidocaine 1% by Brendon Kimbrough MD.INITIAL ACCESS ONLY 18:08:33 Cook BILIARY 10.2 FR drainage catheter ([id number]) opened to sterile field . 18:08:33 BAG, DRAINAGE EMPTY 600ML W/LUCIA (BTI916) opened to sterile field. 18:08:34 STOPCOCK 3-Way Large Bore ([id number]) opened to sterile field. 18:08:34 GLIDE WIRE Angled Super Stiff 180cm (AN2545) opened to sterile field. 18:08:35 SUTURE ETHILON 2-0 BLK MONO FS opened to sterile field. 18:11:00 Procedure ended.(Physican Out) 18:11:40 Fluoroscopy time 02.40 minutes. 18:11:46 Dose Area Product 54 mGy/cm. 18:12:21 Contrast amount:Isovue 300 15ml. 18:12:41 Sharps counted by scrub and verified by R.N. 18:12:43 Insertion/operative site no bleeding no hematoma. 18:13:03 Post-op/insertion site Right Abdominal area dressed using a 4 x 4 and Tegaderm and statlock 18:13:15 Post procedure instruction explained to patient.Patient verbalizes understanding. 18:13:16 Procedure and supply charges have been captured, reviewed, submitted an d are correct. 18:13:19 Operative report dictated upon procedure completion. 18:13:23 Patient transfered to [facility] with Bed. Device Usage Item Name Manufacture Quantity Catalog Hospital Part Current Minimal Lot# / Number Charge Number Stock Stock Serial# Code Bag Decanter Microtek 1 [id number] [id number] 5 () Medical Inc. Sterile Cardinal 1 [id number] 932874 891889 5 Angiographic Health Pack Tegaderm 4 x 3M 1 [id number] 454061 490916 422351 5 4 (1626W) GLIDE WIRE Terumo 1 [id number] 787470 409430 833454 5 Super Stiff Angled 260cm (WN1012) GLIDE WIRE Terumo 2 [id number] 151329 507818 5 Angled Super Stiff 180cm (KX7063) Cook BILIARY Cook Medical 1 [id number] 964422 092561 000183 5 [id number] 10.2 FR drainage catheter (V59677) BAG, Merit 1 [id number] 838357 918112 588434 5 DRAINAGE Medical EMPTY 600ML W/LUCIA (YJL718) STOPCOCK Ubly Medical 1 W08768 196789 9699 742579 [id number] 3-Way Large Bore (A22369) SUTURE Ethicon 1 [id number] 524873 202911 5 ETHILON 2-0 BLK MONO FS Signature Audit [place] Stage Time Signature Unsigned Intra-Procedure 07/28/2019 MARY TITUS RT 6:13:55 PM (R) [facility] [address] [place] [address]
--- NOTE | ~2019-07-28 | HEMODYNAMI ---
PATIENT:RYAN JUDD MEDICAL RECORD: [id number] : 41 [facility] D.2109 [id number] AD[facility]ION DATE: 07/28/19 Generatedon:08/02/201915:20 Patient name: RYAN JUDD Patient #: [id number] SSN: : 1945 Date of study: 07/31/2019 Page: Of Hemodynamic Procedure Report Patient Data Patient Demographics Procedure consent was obtained First Name: RYAN Gender: Male Last Name: DUTCH : 1945 Middle Initial: F Age: 73 year(s) Patient #: [id number] Race: Unknown Additional ID: [id number] Contact details Address: [address] [place] [address] State: [place] City: [place] Zip code: [address] Past Medical History Allergies Allergen Reaction Date Comments Reported Other allergy 07/21/2019 sedation meds, patient unsure of which ones Other allergy 07/31/2019 sedation meds, patient unsure of what ones Admission Admission Data Admission Date: 07/28/2019 Admission Time: 12:48 Room #: D.2109 Height (in.): 69 BSA: 1.93 (m2) Height (cm.): 175.26 BMI: 25.1 (kg/m2) Weight (lbs.): 170 Weight (kg.): 77.11 Procedure Procedure Types Cath Procedure Peripheral Cath Diagnostic Procedure Applied Technologist Peripheral Procedures Biliary Biliary Stent Placement Procedure Description Procedure Date Procedure Date: 07/31/2019 Procedure Start Time: 14:18 Procedure Staff Name Function Mary Badillo RT Magnetic Locater Jordan Yu RT Scrub Brendon Kimbrough MD Performing Physician Robyn Jesus RN Nurse Alcira Perez RN Nurse Procedure Data Cath Procedure Fluoroscopy Diagnostic fluoroscopy Total fluoroscopy Time: 6.7 time: 6.7 min min Diagnostic fluoroscopy Total fluoroscopy dose: 155 dose: 155 mGy mGy Contrast Material Contrast Material Type Amount (ml) Isovue 300 30 Diagnostic catheters Device Type Used For End Catheter Placement Merit [facility] Pigtail VESSEL SIZING 5Fr 65CM catheter ([id number]) Procedure Medications Medication Administration Route Dosage Heparin Flush Bag added to field 1 bags (1000units/500ml NS) Lidocaine 1% added to field 20 Rocephin I.V. 1 g Hemodynamics Rest BSA: 1.93 (m2) O2 Consumption: Estimated: 223.13 (ml/min) O2 Consumption indexed : Estimated:115.61 (ml/min/m) Heart Rate: 72 (bpm) Snapshots Pre Cath Intra NCS Post Cath Vital Signs Time Heart Resp SPO2 etCO2 NIBP (mmHg) Rhythm Pain Sedation Rate (ipm) (%) (mmHg) Status Level (bpm) 14:05:09 70 16 100 24.2 156/80(118) NSR 0 (11) 10(A) , No pain 14:09:35 70 16 100 25 153/70(117) NSR 0 (11) 10(A) , No pain 14:13:58 67 13 100 0 114/59(83) NSR 0 (11) 10(A) , No pain 14:18:22 61 12 100 23.4 104/56(81) NSR 0 (11) 10(A) , No pain 14:22:32 66 11 100 26.5 104/55(72) NSR 0 (11) 10(A) , No pain 14:27:27 76 16 100 21.2 128/75(104) NSR 0 (11) 10(A) , No pain 14:31:41 68 15 100 26.5 136/71(107) NSR 0 (11) 10(A) , No pain 14:35:57 73 17 100 0 143/72(115) NSR 0 (11) 10(A) , No pain 14:40:54 74 19 100 15.9 142/78(109) NSR 0 (11) 10(A) , No pain 14:45:14 69 17 100 17.4 133/66(97) NSR 0 (11) 10(A) , No pain 14:49:30 67 20 100 19.7 133/70(101) NSR 0 (11) 10(A) , No pain Medications Time Medication Route Dose Verified Delivered Reason Notes Effec tiveness by by 14:16:18 Heparin Flush added 1 Brendon Olivas used for Bag to bags Kaylan Kimbrough MD procedure (1000units/500ml field MONTERO NS) 14:16:33 Lidocaine 1% added 20ml Brendno Olivas used for to vial Kaylan Kimbrough MD procedure field MONTERO 14:16:55 Rocephin I.V. 1 g Brendon Eli used for Chris Kimbrough hair spinner MD Procedure Log Time Note 13:55:23 Patient Height : 69 inches 13:55:28 Patient Weight : 170 lbs 13:56:01 Time tracking: Regular hours (M-F 7:00 - 5:00) 13:56:15 Plan of Care:Hemodynamics will remain stable., Cardiac rhythm will remain stable., Comfort level will be maintained., Respiratory function will remain adequate., Patient/ family verbilizes understanding of procedure., Procedure tolerated without complication., Recovers from procedure without complications.. 13:56:23 Patient received from Med II to IR Alert and oriented. Tansferred to table in Supine position. 13:56:26 Signed procedure consent form obtained from patient. 13:56:37 H&P Date Dictated: 07/31/2019 Within 30 days and on chart.. 13:56:38 Pre-procedure instructions explained to patient. 13:56:39 Pre-op teaching completed and patient verbalized understanding. 13:56:41 Family unavailable. 13:56:43 Patient NPO since Midnight. 13:57:26 Patient allergic to Other allergysedation meds, patient unsure of what ones 13:57:32 Is the patient allergic to Iodine/contrast media? No. 13:57:35 - 13:57:37 ----Pre-sedation anethsthesia assessment.----see anesthesia notes for monitoring of patient during procedure 13:58:11 - 13:58:22 Right abdomen area was prepped with chlora-prep and draped in sterile fashion 13:58:24 - 13:58:28 Use device set IR Diagnostic 13:58:31 Sterile Angiographic Pack opened to sterile field. 13:58:32 Bag Decanter () opened to sterile field. 14:03:54 ECG and BP/O2 sat monitors applied to patient. 14:03:55 Vital chart was started 14:03:57 Baseline sample Acquired. 14:03:58 Full Disclosure recording started 14:03:59 - 14:12:54 Cook BILIARY 10.2 FR drainage catheter (Z08495) opened to sterile field . 14:12:56 BAG, DRAINAGE EMPTY 600ML W/LUCIA (MHW035) opened to sterile field. 14:12:57 STOPCOCK 3-Way Large Bore (S42218) opened to sterile field. 14:12:59 Tegaderm 4 x 4 (1626W) opened to sterile field. 14:13:14 ARROW SUPERFLEX 8FR 45CM sheath opened to sterile field. 14:13:28 AMPLATZ Super stiff 180cm wire ([id number]) opened to sterile field. 14:16:18 Heparin Flush Bag (1000units/500ml NS) 1 bags added to field was administered by Brendon Kimbrough MD; used for procedure; Verbal order read back and verified. 14:16:28 Physician arrived 14:16:29 --------ALL STOP TIME OUT------ 14:16:30 Final Timeout: patient, procedure, and site verified with staff and physician. All members of the team are in agreement. 14:16:33 Lidocaine 1% 20ml vial added to field was administered by Brendon Kimbrough MD; used for procedure; Verbal order read back and verified. 14:16:55 Rocephin 1 g I.V. was administered by Alcira Perez RN; used for procedure; Verbal order read back and verified. 14:17:47 Fire Safety Assessment: A--An alcohol-based skin anteseptic being used preoperatively., C--Open oxygen or nitrous oxide is being used. 14:17:55 Procedure started. 14:18:01 Local anesthetic to Abdominal area with Lidocaine 1% by Brendon Kimbrough MD.INITIAL ACCESS ONLY 14:22:05 GLIDE CATHETER 5FR ANGLED 65cm (CG507) opened to sterile field. 14:22:10 GLIDE WIRE Angled Super Stiff 180cm (XM3833) opened to sterile field. 14:22:20 SUTURE ETHILON 2-0 BLK MONO FS opened to sterile field. 14:25:44 A [facility] Pigtail VESSEL SIZING 5Fr 65CM catheter ([id number]) was advanced over the wire and used for . 14:33:56 [facility] 10FR 23CM sheath opened to sterile field. 14:34:26 VIABIL 10 X 6 stent ([id number]) was deployed across Undefined1 . 14:36:31 INFLATOR BasixTOUCH (DS1923) opened to sterile field. 14:37:42 Inflate balloon Inflation number: 1 A Evercross 8 x 40 x 80 ([id number]) was prepped and advanced across the Undefined1 , then inflated . 14:45:27 Procedure ended.(Physican Out) 14:46:02 Fluoroscopy time 06.70 minutes. 14:46:06 Fluoroscopy dose: 155 mGy 14:46:06 Flurop Dose total: 155 14:51:42 Report given to Med II. 14:52:22 Vital chart was stopped 14:52:28 Full Disclosure recording stopped 15:19:20 Contrast amount:Isovue 300 30ml. Intervention Summary Intervention Notes Time ActionType Lesion and Equipment Used Action# Pressure Duration Attributes 14:34:26 Deploy self Undefined1 VIABIL 10 X 6 1 expanding stent stent ([id number]) 14:37:42 Inflate Undefined1 Evercross 8 x 1 0 00:00 balloon 40 x 80 ([id number]) Device Usage Item Name Manufacture Quantity Catalog Hospital Part Current Minim al Lot# / Number Charge Number Stock Stock Serial# Code Cori [place] 1 [id number] 994412 5 Angiographic Health Pack Bag Decanter Microtek 1 [id number] 01925 650587 5 () Medical Inc. Cook BILIARY Cook Medical 1 Z51917 173809 085457 520029 5 [id number] 10.2 FR drainage catheter (C45939) BAG, DRAINAGE Merit 1 [id number] 928227 928863 596774 5 EMPTY 600ML Medical W/LUCIA (JPS349) STOPCOCK 3-Way Cook Medical 1 [id number] 282951 5517 296668 5 [id number] Large Bore (I03215) Tegaderm 4 x 4 3M 1 1626W 922796 690847 938459 5 (1626W) ARROW Teleflex 1 [id number] 862041 597242 5 SUPERFLEX 8FR 45CM sheath AMPLATZ Super Douglas 1 [id number] 045352 621228 823650 5 stiff 180cm Scientific wire ([id number]) GLIDE CATHETER Terumo 1 [id number] 725021 103259 5 5FR ANGLED 65cm (CG507) GLIDE WIRE Terumo 1 FA6973 710739 790516 5 Angled Super Stiff 180cm (CX9432) SUTURE ETHILON Ethicon 1 664H 332434 127373 5 2-0 BLK MONO FS Merit UHF Merit 1 [id number] 944812 158716 5 Pigtail VESSEL Medical SIZING 5Fr 65CM catheter ([id number]) [facility] 10FR [facility] 1 293742 235506 107855 5 23CM sheath VIABIL 10 X 6 [place] 1 [id number] 788871 933207 5 [id number] stent ([id number]) INFLATOR Merit 1 WB9731 825580 760148 654585 5 BasixTODraftMix Medical (HI4356) Evercross 8 x Medtronic 1 [id number] 035608 207680 141053 5 40 x 80 ([id number]) Signature Audit [place] Stage Time Signature Unsigned Intra-Procedure 07/31/2019 Mary Badillo RT(R) 2:52:18 PM RT(R) 08/02/2019 3:19:10 PM Intra-Procedure 08/02/2019 Mary Badillo 3:20:49 PM RT(R) [facility] [address] [place] [address]
--- NOTE | ~2019-07-28 | HEMODYNAMI ---
PATIENT:RYAN JUDD MEDICAL RECORD: [id number] : 41 LOCATION[facility] [id number] ADMISSION DATE: 07/28/19 Generatedon:08/02/201915:16 Patient name: RYAN JUDD Patient #: [id number] SSN: : 1945 Date of study: 08/02/2019 Page: Of Hemodynamic Procedure Report Patient Data Patient Demographics Procedure consent was obtained First Name: RYAN Gender: Male Last Name: DUTCH : 1945 Middle Initial: F Age: 73 year(s) Patient #: [id number] Race: Unknown Additional ID: [id number] Contact details Address: [address] [place] [address] State: [place] City: [place] Zip code: [address] Past Medical History Allergies Allergen Reaction Date Comments Reported Other allergy 07/21/2019 sedation meds, patient unsure of which ones Other allergy 07/31/2019 sedation meds, patient unsure of what ones Admission Admission Data Admission Date: 07/28/2019 Admission Time: 12:48 Room #: 2109 Height (in.): 69 BSA: 1.93 (m2) Height (cm.): 175.26 BMI: 25.1 (kg/m2) Weight (lbs.): 170 Weight (kg.): 77.11 Procedure Procedure Types Cath Procedure Peripheral Cath Diagnostic Procedure Biliary Cholangio Thru Existing Procedure Description Procedure Date Procedure Date: 08/02/2019 Procedure Start Time: 14:49 Procedure Staff Name Function Brendon Kimbrough MD Performing Physician Jordan Yu RT Scrub Mary Badillo RT Monitor Robyn Jesus RN Nurse Hemodynamics Rest BSA: 1.93 (m2) O2 Consumption: Estimated: 217.21 (ml/min) O2 Consumption indexed : Estimated:112.54 (ml/min/m) Heart Rate: 64 (bpm) Snapshots Pre Cath Intra NCS Post Cath Vital Signs Time Heart Resp SPO2 etCO2 NIBP (mmHg) Rhythm Pain Sedation Rate (ipm) (%) (mmHg) Status Level (bpm) 14:23:33 0 No Cuff NSR 0 (11) 10(A) , No pain 14:27:32 0 No Cuff NSR 0 (11) 10(A) , No pain 14:31:32 0 No Cuff NSR 0 (11) 10(A) , No pain 14:35:32 62 13 98 0 No Cuff NSR 0 (11) 10(A) , No pain 14:39:48 59 12 98 0 166/79(111) NSR 0 (11) 10(A) , No pain 14:44:10 63 14 98 0 164/78(101) NSR 0 (11) 10(A) , No pain 14:48:34 59 11 99 0 163/74(106) NSR 0 (11) 10(A) , No pain 14:52:56 61 12 100 0 180/78(108) NSR 0 (11) 10(A) , No pain 14:57:25 60 13 99 0 172/81(138) NSR 0 (11) 10(A) , No pain 15:01:49 64 13 99 0 173/82(113) NSR 0 (11) 10(A) , No pain 15:06:11 69 28 99 0 174/91(114) NSR 0 (11) 10(A) , No pain 15:10:35 62 21 99 0 181/84(114) NSR 0 (11) 10(A) , No pain 15:15:34 61 17 99 0 Measuring NSR 0 (11) 10(A) , No pain Procedure Log Time Note 14:21:45 Patient Height : 69 inches 14:21:45 Patient Weight : 170 lbs 14:22:04 [facility] RT (R) (CV) sent for patient. Start room use. 14:22:10 Time tracking: Regular hours (M-F 7:00 - 5:00) 14:22:17 Plan of Care:Hemodynamics will remain stable., Cardiac rhythm will remain stable., Comfort level will be maintained., Respiratory function will remain adequate., Patient/ family verbilizes understanding of procedure., Procedure tolerated without complication., Recovers from procedure without complications.. 14:22:21 Use device set IR Diagnostic 14:22:23 Bag Decanter (2002S) opened to sterile field. 14:22:23 Sterile Angiographic Pack opened to sterile field. 14::23 Tegaderm 4 x 4 ([id number]) opened to sterile field. 14:22:34 Patient received from Med II to IR Alert and oriented. Tansferred to table in Supine position. 14:22:37 Signed procedure consent form obtained from patient. 14:22:40 Full Disclosure recording started 14:22:41 Correct patient and procedure confirmed by team. 14:22:43 ECG and BP/O2 sat monitors applied to patient. 14:23:00 - 14:23:04 H&P Date Dictated: 08/02/2019 Within 30 days and on chart.. 14:23:04 Pre-procedure instructions explained to patient. 14:23:05 Pre-op teaching completed and patient verbalized understanding. 14:23:07 Patient NPO since Midnight. 14:27:18 Right abdomen area was prepped with chlora-prep and draped in sterile fashion 14:27:20 Alarms reviewed by R. N. 14:27:21 Sharps counted by scrub and verified by R.N. 14:32:57 IV patent on arrival in port with 0.45%NaCl at KVO. 14:33:23 - 14:34:44 Baseline sample Acquired. 14:43:54 Physician arrived 14:43:54 --------ALL STOP TIME OUT------ 14:43:56 Final Timeout: patient, procedure, and site verified with staff and physician. All members of the team are in agreement. 14:49:15 Procedure started. 14:49:22 Local anesthetic to Abdominal area with Lidocaine 1% by Brendon Kimbrough MD.INITIAL ACCESS ONLY 14:52:35 GLIDE WIRE Angled Super Stiff 180cm ([id number]) opened to sterile field. 14:56:39 GLIDE CATHETER 5FR ANGLED 65cm (CG507) opened to sterile field. 14:56:50 TORQUE DEVICE PLASTIC .038 ( TD01) opened to sterile field. 15:04:58 Abscession 10 FR drainage catheter ([id number]) opened to sterile field. 15:04:59 STOPCOCK 3-Way Large Bore ([id number]) opened to sterile field. 15:05:00 BAG, DRAINAGE EMPTY 600ML W/LUCIA ([id number]) opened to sterile field. 15:12:11 Procedure ended.(Physican Out) 15:13:26 Report given to Med II. 15:16:22 Vital chart was stopped Device Usage Item Name Manufacture Quantity Catalog Hospital Part Current Minima l Lot# / Number Charge Number Stock Stock Serial# Code Bag Decanter Microtek 1 [id number] [id number] [id number] 5 () Medical Inc. Sterile Cardinal 1 [id number] 297438 5 Angiographic Health Pack Tegaderm 4 x 3M 1 [id number] [id number] 174857 098604 5 4 (1626W) GLIDE WIRE Terumo 1 [id number] 865176 727936 5 Angled Super Stiff 180cm (CA4374) GLIDE Terumo 1 [id number] 492987 921626 5 CATHETER 5FR ANGLED 65cm (CG507) TORQUE [place] 1 TD01 589297 655304 040331 5 DEVICE Scientific PLASTIC .038 ( TD01) Abscession Angiodynamics 1 [id number] 805587 349292 138291 5 10 FR drainage catheter ([id number]) STOPCOCK [employer] 1 [id number] 016789 0118 741784 5 [id number] 3-Way Large Bore ([id number]) BAG, [employer] 1 [id number] 684764 523516 420912 5 DRAINAGE EMPTY 600ML W/LUCIA (BIW606) Signature Audit [place] Stage Time Signature Unsigned Intra-Procedure 08/02/2019 Mary Badillo 3:16:18 PM RT(R) [facility] [address] [place] [address]
[~2019-07-28 10:49] MED LIST changes: +BREO ELLIPTA 11 EACH INH; +CENTRUM MEN'S1 EACH PO; +VENTOLIN HFA [SP8 GM INH; +VITAMIN B-121000 MCG PO
[2019-07-28 14:37] LABS: BILIRUBIN 2+ (NEGATIVE); GLUCOSE NEGATIVE (NEGATIVE); KETONE NEGATIVE (NEGATIVE); NITRITE NEGATIVE (NEGATIVE); RED CELLS - URINE 0-5 /hpf (0-5); SPECIFIC GRAVITY 1.025 (1.005-1.020); UROBILINOGEN NORMAL (NORMAL)
[2019-07-28 14:38] LABS: AMORPHOUS SEDIMENT <1+ /lpf (NONE SEEN); BACTERIA MODERATE /hpf (NEGATIVE); EPITHELIAL CELLS RARE /hpf (0-5); HYALINE CAST 0-5 /lpf (NONE SEEN)
[2019-07-28] MEDS ORDERED: BENADRYL25 MG PO (14:58)
--- NOTE | 2019-07-28 17:58 | NUR ---
PT TAKEN FOR CHOLANGIOGRAM VIA BED. MED REC AND HX COMPLETED.
[2019-07-28 18:14] VITALS: BP 108/55
--- NOTE | 2019-07-28 18:32 | NUR ---
PT RETURNED FROM CHOLANGIOGRAM. RADIOLOGY STATED THEY DID NOT GIVE ANY SEDATION AND THEY CHANGED BILIARY DRAIN WITH A 10FRENCH AND PT IS TO HAVE A RENAL STENT PLACED WEDNESDAY.
--- NOTE | 2019-07-28 18:36 | NUR ---
PT'S RIGHT FLANK DRESSING C/D/I WITH BILIARY DRAIN DRAINING. PT ALERT AND ORIENTED AND STATES HE HAS NO FURTHER NEEDS A THIS TIME. BED LOW. CL IN REACH. WILL CONTINUE TO MONITOR.
--- NOTE | 2019-07-28 19:30 | NUR ---
PT IN BED, AAO X 3, RESP EVEN AND UNLABORED, NO DISTRESS NOTED, CL IN REACH, SR X 2.
[2019-07-28 21:21] VITALS: BP 102/53
[2019-07-29] VITALS (9 sets, daily range): BP systolic 101–132; BP diastolic 40–66; Ht 175.3 cm; Wt 86.1 kg
--- NOTE | 2019-07-29 03:32 | NUR ---
TEENAGE BABYSITTER ASSESSMENT COMPLETED AT THIS TIME.
[2019-07-29 05:00] LABS: HEMATOCRIT 28.1 % (42.0-54.0); HEMOGLOBIN 8.4 g/dL (13.5-17.5); LYMPHOCYTES 13.7 % (15-50); MCH 28.6 pg (26.0-34.0); MCHC 29.9 g/dL (31.0-37.0); MCV 95.6 fL (80.0-100.0); MEAN PLATELET VOLUME 8.9 fL (7.4-10.4); NEUTROPHILS 76.4 % (40-80); PLATELET COUNT 383 10x3/uL (130-400); RBC 2.94 10x6/uL (4.20-6.10); RDW 16.9 % (11.5-14.5); WBC 9.9 10x3/uL (4.8-10.8)
[2019-07-29 05:23] LABS: ALBUMIN 2.2 g/dL (3.4-5.0); ANION GAP 18.9 mmol/L (8-16); BILIRUBIN - TOTAL 8.52 mg/dL (0.2-1.3); CALCIUM 8.3 mg/dL (8.5-10.1); CARBON DIOXIDE 18.3 mmol/L (21.0-32.0); CREATININE - SERUM 6.3 mg/dL (0.6-1.3); POTASSIUM - SERUM 4.2 mmol/L (3.5-5.1); PROTEIN - SERUM 6.7 g/dL (6.4-8.2)
[2019-07-29 05:25] LABS: PHOSPHOROUS 9.7 mg/dL (2.5-4.9)
--- NOTE | 2019-07-29 07:38 | NUR ---
C/O 10/29 PAIN IN RIGHT SIDE OF ABDOMEN. SOB ON 2L NC. MORPHINE RECIEVED PER ORDERS. DENIES FURTHER NEEDS AT THIS TIME. BILLIARY DRAIN EMPTIED WITH 125MLS. BED IN LOWEST POSITION. CALL LIGHT WITHIN REACH. BED IN LOWEST POSITION. WILL CONTINUE TO MONITOR.
[2019-07-29 09:27] LABS: % SATURATION 18 % (15-55); IRON 47 ug/dl (35-150); TOTAL IRON BIND CAPACITY 253 ug/dl (260-445); UNSAT IRON BIND CAPACITY 206 ug/dl (150-375)
--- NOTE | 2019-07-29 12:42 | NUR ---
I HAVE REVIEWED THIS PATIENT AND CONCUR WITH ASSESSMENT COMPLETED BY REGISTRATION REPRESENTATIVE TODAY ON THIS SHIFT. PATIENT SR ON TELEMETRY AT THIS TIME, RATE 81.
--- NOTE | 2019-07-29 19:04 | NUR ---
SPOKE WITH CONI AGRAWAL ABOUT PT'S PAIN CONTROL FOR TONIGHT SINCE MORPHINE WAS PUT ON HOLD PER DR. BERNABE FOR PRIMARY TO CONTROL. STATED SHE WOULD RATHER LET LASHON HANDLE THE PAIN MEDICATION. PAGE SENT TO DR. OATES. NO RESPONSE AT THIS TIME.
--- NOTE | 2019-07-29 20:00 | NUR ---
RESTING IN BED REQUESTING PAIN MEDICATION, INSTRUCTED HAD SPOKEN WITH DR CANAS AND MORPHINE WAS NOW AT 6 MG EVERY 4 HRS , DOSE GIVEN AT THIS TIME, SEE SHIFT ASSESSMENT, CALL LIGHT IN REACH
[2019-07-30] VITALS: BP 136/60
[2019-07-30 04:00] VITALS: BP 121/56
[2019-07-30 05:32] LABS: HEMATOCRIT 25.1 % (42.0-54.0); HEMOGLOBIN 7.6 g/dL (13.5-17.5); LYMPHOCYTES 15.5 % (15-50); MCH 29.3 pg (26.0-34.0); MCHC 30.3 g/dL (31.0-37.0); MCV 96.9 fL (80.0-100.0); MEAN PLATELET VOLUME 9.4 fL (7.4-10.4); NEUTROPHILS 64.5 % (40-80); PLATELET COUNT 311 10x3/uL (130-400); RBC 2.59 10x6/uL (4.20-6.10); RDW 16.2 % (11.5-14.5)
[2019-07-30 05:39] LABS: WBC 6.8 10x3/uL (4.8-10.8)
[2019-07-30 05:51] LABS: ANION GAP 17.9 mmol/L (8-16); BILIRUBIN - TOTAL 10.08 mg/dL (0.2-1.3); CALCIUM 8.2 mg/dL (8.5-10.1); CARBON DIOXIDE 16.8 mmol/L (21.0-32.0); POTASSIUM - SERUM 3.7 mmol/L (3.5-5.1); PROTEIN - SERUM 6.1 g/dL (6.4-8.2)
[2019-07-30 06:00] LABS: CREATININE - SERUM 4.6 mg/dL (0.6-1.3); PHOSPHOROUS 6.4 mg/dL (2.5-4.9)
--- NOTE | 2019-07-30 08:00 | NUR ---
SITTING UP ON SIDE OF BED. PT STATES HE FEELS "DIZZY" STANDBY ASSIST WITH STANDING TO URINATE. STATED HE WANTS A SHOWER, REASSURED THAT HE WILL HAVE A SHOWER/BATH TODAY. CALL LIGHT WITHIN REACH. ASSISTED WITH MENU. DENIES FURTHER NEEDS AT THIS TIME. BED IN LOWEST POSITION. WILL CONTINUE TO MONITOR.
[2019-07-30 08:26] VITALS: BP 112/51
[2019-07-30 10:47] LABS: AMYLASE - SERUM 99 U/L (25-115); LIPASE 825 U/L (73-393)
--- NOTE | 2019-07-30 11:00 | NUR ---
SHOWER RECIEVED WITH MINIMAL ASSISTANCE. LINENS AND GOWN CHANGED. PT BACK TO BED. CALL LIGHT WITHIN REACH. BED IN LOWEST POSITION. WILL CONTINUE TO MONITOR.
[2019-07-30 12:49] VITALS: BP 146/54
[2019-07-30 15:59] VITALS: BP 108/56
--- NOTE | 2019-07-30 17:20 | NUR ---
I have reviewed this patient and I concur with the Shift Assessment completed by the Licensed Practical Nurse today this shift.
[2019-07-30 20:00] VITALS: BP 134/65
--- NOTE | 2019-07-30 21:54 | NUR ---
INITIAL ROUNDS COMPLETED AT 1915 HRS. NO DISTRESS NOTED. PT STATED HEWS DREAMING HE WS RIDING THE SUBWAYS IN [facility]. STATES HE KNOWS HE IS AT [facility]. ASSESSMENT COMPLETED AT 2005 HRS. 1ST UNIT OF BLOOD INFUSED. VSS. SR PER CM HR 85. IV TO L HAND WITH ZOFRAN DRIP INFUSING AT 4.7CC/HR. IV TO RFA WITH SALINE FLUSHING BEHIND PRBC'S/ O2 2LONC. LUNGS DIMINISHED IN BASES BILAT. SKIN JAUNDICED. ABD DISTENDED. R BILI DRAIN NOTED DRAINING LARGE AMOUNTS OF BILE COLORED LIQUID. HOYT. PALPABLE PERIPHERAL PULSES. 2ND UNIT OF PRBC'S INITAITED AT 2039 HRS. PM MEDS GIVEN. PT CURRENTLY RESTING WITH EYES CLOSED. RESP EVEN AND REGULAR. SR UP X2,CALL LIGHT WITHIN REACH.
--- NOTE | 2019-07-30 23:45 | NUR ---
2ND UNIT OF PRBC'S INFUSED. PT DENIES ANY DISCOMFORT. NS AT 150CC/HR RESTARTED AT 2340 HRS. SR UP X1, CALL LIGHT WITHIN REACH.
[2019-07-31] VITALS: BP 157/64
--- NOTE | 2019-07-31 02:19 | NUR ---
ASSISTED TO BR. BERNARDUS NOTED. ASSISTED BACK TO BED. PT THOUGHT HE WAS AT HOME. REORIENTED TO PLACE, AND SITUATION. SR UP X2, CALL LIGHT WITHIN REACH.
[2019-07-31 04:00] VITALS: BP 150/52
--- NOTE | 2019-07-31 04:14 | NUR ---
MORPHNE 6MG SIVP GIVEN FOR C/O ABD PAIN. HIBICLENS BATH DONE. CALL LIGHT WITHIN REACH.
--- NOTE | 2019-07-31 05:45 | NUR ---
PT STATES MORPHINE CONTROLLED HIS ABD PAIN. VSS THROUGHOUT NIGHT. NPO FOR AM PROCEDURE. NEDS MET; WILL CONTINUE TO MONITOR.
[2019-07-31 05:49] LABS: BILIRUBIN - DIRECT 7.72 mg/dL (0.00-0.30); BILIRUBIN - INDIRECT 1.5 mg/dL (0.00-1.00); BILIRUBIN - TOTAL 9.22 mg/dL (0.2-1.3); CALCIUM 8.4 mg/dL (8.5-10.1); CARBON DIOXIDE 18.2 mmol/L (21.0-32.0); MAGNESIUM - SERUM 1.6 mg/dL (1.8-2.4); POTASSIUM - SERUM 4.2 mmol/L (3.5-5.1); PROTEIN - SERUM 6.2 g/dL (6.4-8.2)
[2019-07-31 05:58] LABS: CREATININE - SERUM 2.8 mg/dL (0.6-1.3); PHOSPHOROUS 4.1 mg/dL (2.5-4.9)
[2019-07-31 06:04] LABS: APTT 39.4 SECONDS (22.8-39.4); INR 1.26 (0.85-1.17); PROTIME 15.7 SECONDS (11.6-15.0)
--- NOTE | 2019-07-31 07:17 | NUR ---
REPORT RECEIVED FROM DRIVER LICENSE EXAMINER AND PATIENT CARE ASSUMED. PATIENT LAYING IN BED ON BACK AWAKE, ALERT AND ORIENTED X 4. PATIENT IS STABLE AND VSS. PATIENT DENIES ANY NEEDS OR PAIN. PATIENT IS NPO AWAINTING SURGERY. WILL CONTINUE WITH PLAN OF CARE. SR UP X 2 BED IN LOW POSITION AND CALL LIGHT IN REACH.
[2019-07-31 08:35] VITALS: BP 134/62
[2019-07-31 09:25] LABS: HEMATOCRIT 30.1 % (42.0-54.0); MCH 29.9 pg (26.0-34.0); MCHC 31.9 g/dL (31.0-37.0); MEAN PLATELET VOLUME 9.4 fL (7.4-10.4); NEUTROPHILS 62.3 % (40-80); PLATELET COUNT 282 10x3/uL (130-400); RDW 17.1 % (11.5-14.5); WBC 6.3 10x3/uL (4.8-10.8)
[2019-07-31 09:27] LABS: HEMOGLOBIN 9.6 g/dL (13.5-17.5); MCV 93.8 fL (80.0-100.0); RBC 3.21 10x6/uL (4.20-6.10)
--- NOTE | 2019-07-31 10:50 | NUR ---
Nutrition Follow-up: NPO for cholangiogram with possible metallic stent placement today. Noted ST eval pending. Diet: NPO PO intake: 50-75% Wt: 170# (07/28); 170# (07/27 - stated) Last BM: 07/26 per chart Labs noted: Glu 117, Ca 8.4, Mg 1.6, Alb 2.0 Meds noted: MagOx, Pepcid, Senokot, Colace, electrolyte protocol -Rec resume diet when medically feasible and offer nutrition supplements. -Monitor wt; noted daily wts ordered. -RD following.
--- NOTE | 2019-07-31 11:34 | NUR ---
PATIENT RESTING QUIETLY. PATIENT REMAINS NPO. ASSESMENT COMPLETED. WILL CONTINUE TO MONITOR. SR UP X 2 BED IN LOW POSITION AND CALL LIGHT IN REACH.
--- NOTE | 2019-07-31 11:35 | NUR ---
PATIENT RESTING QUEITLY. PATIENT IS STABLE AND VSS.PATIENT DENIES ANY NEEDS OR PAIN. WILL CONTINUE TO MONITOR. SR UP X 2 BED IN LOW POSTION AND CALL LIGHT IN REACH.
[2019-07-31 13:15] VITALS: BP 142/71
--- NOTE | 2019-07-31 13:53 | NUR ---
DAUGHTER TO CALL WANTING INFORMATION OF HER DAD. SHE ASKED TO SPEAK TO "CONI AGRAWAL" SHE STATES SHE GOT THIS NURSE STATION NUMBER FROM RHODA, EDI ANALYST. NGHIA OVIEDO APN IS ON FLOOR AND HAS NOT MADE ROUNDS YET. NGHIA STATES, "SOMEONE WILL CALL HER SOON WE SEE THE PATIENT". THIS INFO IS RELAYED TO THE DAUGHTER.
--- NOTE | 2019-07-31 15:09 | NUR ---
PATIENT RETURNED FROM CHOLANGIOGRAM WITH STENT PLACEMENT. PATIENT IS SLEEPY BUT ANSWERS QUESTIONS APPROPRIATELY. VS STABLE 02SAT 98% ON ROOM AIR. FREQUENT VS SET UP. OFFERED PATIENT FLUIDS PATIENT DECLINED. WILL CONTINUE TO MONITOR. SR UP X 2 BED IN LOW POSITION AND CALL LIGHT IN REACH.
[2019-07-31 18:23] VITALS: BP 162/73
[2019-07-31 18:28] LABS: CKMB 1.8 U/L (0.0-3.6); CREATINE KINASE 38 UL (21-232); TROPONIN-I < 0.017 ng/mL (0.000-0.060)
[2019-07-31 20:54] VITALS: BP 129/39
[2019-07-31 23:18] LABS: CKMB 1.7 U/L (0.0-3.6); CREATINE KINASE 26 UL (21-232); TROPONIN-I < 0.017 ng/mL (0.000-0.060)
[2019-08-01 00:30] VITALS: BP 179/73
[2019-08-01 06:28] VITALS: BP 163/62
[2019-08-01 07:07] LABS: HEMATOCRIT 29.6 % (42.0-54.0); HEMOGLOBIN 9.4 g/dL (13.5-17.5); MCH 30.3 pg (26.0-34.0); MCHC 31.8 g/dL (31.0-37.0); MCV 95.5 fL (80.0-100.0); MEAN PLATELET VOLUME 9.8 fL (7.4-10.4); NEUTROPHILS 70.7 % (40-80); PLATELET COUNT 298 10x3/uL (130-400); RDW 17.8 % (11.5-14.5); WBC 5.6 10x3/uL (4.8-10.8)
[2019-08-01 07:42] LABS: ALKALINE PHOSPHATASE 387 U/L (30-120); ALT (SGPT) 64 U/L (10-68); BILIRUBIN - TOTAL 6.73 mg/dL (0.2-1.3); CALCIUM 8.2 mg/dL (8.5-10.1); CARBON DIOXIDE 16.3 mmol/L (21.0-32.0); CHLORIDE - SERUM 115 mmol/L (98-107); CKMB 1.3 U/L (0.0-3.6); CREATINE KINASE 20 UL (21-232); GLUCOSE 104 mg/dL (74-106); MAGNESIUM - SERUM 1.4 mg/dL (1.8-2.4); PHOSPHOROUS 3.1 mg/dL (2.5-4.9); POTASSIUM - SERUM 4.4 mmol/L (3.5-5.1); PROTEIN - SERUM 5.5 g/dL (6.4-8.2); SODIUM 146 mmol/L (136-145); TROPONIN-I < 0.017 ng/mL (0.000-0.060); eGFR NON AFRICAN AMERICAN 39 mL/min (90-120)
[2019-08-01 07:43] LABS: CALC OSMOLALITY 299 mosm/kg (275-300); CREATININE - SERUM 1.8 mg/dL (0.6-1.3); UREA NITROGEN 38 mg/dL (7-18)
[2019-08-01 09:14] VITALS: BP 157/82
--- NOTE | 2019-08-01 10:11 | MORECARE ---
CASE MANAGEMENT DISCHARGE SUMMARY PATIENT: RYAN JUDD UNIT: [id number] ADM DATE: 07/28/19 AGE: 73 : 43 SEX: M ROOM/BED: D.2109 AUTHOR: PEARL AL PHYSICIAN: REFERRING PHYSICIAN: CRYSTAL OATES MD DATE OF SERVICE: 08/01/19 Discharge Plan Patient Name: RYAN JUDD [facility] [facility] 1945 Planned Disposition: Home with Home Health Anticipated Discharge Date: Discharge Date: Expected LOS: Initial Reviewer: [email or web address] Initial Review Date: 08/01/2019 Generated: 08/01/19 11:10 am DCPIA - Discharge Planning Initial Assessment Updated by [email or web address]: Joana Taylor on 08/01/19 10:09 am * Is the patient Alert and Oriented? Yes * How many steps to enter\exit or inside your home? 0/0 * PCP Dr. Migue Mclain * Pharmacy [place] [id number] * Preadmission Environment Home with Family * ADLs Independent * Equipment None * List name and contact numbers for known caregivers / representatives who currently or will assist patient after discharge: Mary Judd - spouse - [phone] Emily Velasquez - DTR - [phone] * Verbal permission to speak to the caregivers and representatives has been obtained from the patient. Yes * Community resources currently utilized None * Additional services required to return to the preadmission environment? Yes * Can the patient safely return to the preadmission environment? Yes * Has this patient been hospitalized within the prior 30 days at any hospital? No Patient Name: RYAN JUDD Page 63956 at 1011 All edits/amendments must be made on the electronic document DICTATION DATE: 08/01/19 1010 ACCESS TECH: JOJO 08/01/19 1010 RPT#: [id number] DC DATE: STATUS: ADM IN [facility] [address] [place] [address] END OF REPORT
--- NOTE | 2019-08-01 10:18 | MORECARE ---
CASE MANAGEMENT DISCHARGE SUMMARY PATIENT: RYAN JUDD UNIT: [id number] ADM DATE: 07/28/19 AGE: 73 : 43 SEX: M ROOM/BED: D.0545 AUTHOR: PEARL AL PHYSICIAN: REFERRING PHYSICIAN: CRYSTAL OATES MD DATE OF SERVICE: 08/01/19 Discharge Plan Patient Name: RYAN JUDD Facility: [facility]:[place] : 1945 Planned Disposition: Home with Home Health Anticipated Discharge Date: Discharge Date: Expected LOS: Initial Reviewer: [email or web address] Initial Review Date: 08/01/2019 Generated: 08/01/19 11:18 am Comments DCP- Discharge Planning Updated by [email or web address]: Joana Taylor on 08/01/19 9:[address] Patient Name: RYAN JUDD Admission Status: ER Accout number: [id number] Admission Date: 07-28-2019 : 1945 Admission Diagnosis:NAUSEA WITH VOMITING, UNSPECIFIED Attending: CRYSTAL OATES Current LOS: 4 Anticipated DC Date: Planned Disposition: Home with Home Health Primary Insurance: MEDICARE A & B Discharge Planning Comments: CM met with patient to discuss discharge planning/needs. He lives with his independently of all ADL's and IADL's. He states he still plays tennis. He states he does not have any DME or need any DME. He states he would like his and daughter to get medical information and I set up his code and gave it to him in writing. I called his per his request and gave her the code. His daughter spoke with me with his permission and is inquiring about home health. I have given her the list of home health and hospice with the website to compare companies. His daughter states she will call me back with their choice. She states the first choice will be home with home health. CM will continue to follow and assist with discharge planning/needs. Special Events Director: Joana Taylor DCPIA - Discharge Planning Initial Assessment Updated by [email or web address]: Joana Taylor on 08/01/19 10:09 am * Is the patient Alert and Oriented? Yes * How many steps to enter\exit or inside your home? 0/0 * PCP Dr. Migue Mclain * Pharmacy [facility] * Preadmission Environment Home with Family * ADLs Independent * Equipment None * List name and contact numbers for known caregivers / representatives who currently or will assist patient after discharge: Mary Judd - spouse - [phone] Emily Velasquez - DTR - [phone] * Verbal permission to speak to the caregivers and representatives has been obtained from the patient. Yes * Community resources currently utilized None * Additional services required to return to the preadmission environment? Yes * Can the patient safely return to the preadmission environment? Yes * Has this patient been hospitalized within the prior 30 days at any hospital? No Last DP export: 08/01/19 9:11 a Patient Name: RYAN JUDD Page 69283 at 1018 All edits/amendments must be made on the electronic document DICTATION DATE: 08/01/19 1018 RETAIL BANKING MANAGER: JOJO 08/01/19 1018 RPT#: [id number] DC DATE: STATUS: ADM IN [facility] [address] [place] [address] END OF REPORT
--- NOTE | 2019-08-01 12:51 | MORECARE ---
CASE MANAGEMENT DISCHARGE SUMMARY PATIENT: RYAN JUDD UNIT: [id number] ADM DATE: 07/28/19 AGE: 73 : 43 SEX: M ROOM/BED: D.3851 AUTHOR: PEARL AL PHYSICIAN: REFERRING PHYSICIAN: CRYSTAL OATES MD DATE OF SERVICE: 08/01/19 Discharge Plan Patient Name: RYAN JUDD Facility: [facility]:[place] : 1945 Planned Disposition: Home with Home Health Anticipated Discharge Date: Discharge Date: Expected LOS: Initial Reviewer: [email or web address] Initial Review Date: 08/01/2019 Generated: 08/01/19 1:51 pm Comments DCP- Discharge Planning Updated by [email or web address]: Joana Taylor on 08/01/19 9:[address] Patient Name: RYAN JDUD Admission Status: ER Accout number: [id number] Admission Date: 07-28-2019 : 1945 Admission Diagnosis:NAUSEA WITH VOMITING, UNSPECIFIED Attending: CRYSTAL OATES Current LOS: 4 Anticipated DC Date: Planned Disposition: Home with Home Health Primary Insurance: MEDICARE A & B Discharge Planning Comments: CM met with patient to discuss discharge planning/needs. He lives with his independently of all ADL's and IADL's. He states he still plays tennis. He states he does not have any DME or need any DME. He states he would like his and daughter to get medical information and I set up his code and gave it to him in writing. I called his per his request and gave her the code. His daughter spoke with me with his permission and is inquiring about home health. I have given her the list of home health and hospice with the website to compare companies. His daughter states she will call me back with their choice. She states the first choice will be home with home health. CM will continue to follow and assist with discharge planning/needs. Attorney Lawyer: Joana Taylor DCPIA - Discharge Planning Initial Assessment Updated by [email or web address]: Joana Taylor on 08/01/19 10:09 am * Is the patient Alert and Oriented? Yes * How many steps to enter\exit or inside your home? 0/0 * PCP Dr. Migue Mclain * Pharmacy [facility] * Preadmission Environment Home with Family * ADLs Independent * Equipment None * List name and contact numbers for known caregivers / representatives who currently or will assist patient after discharge: Mary Judd - spouse - [phone] Emily Velasquez - DTR - [phone] * Verbal permission to speak to the caregivers and representatives has been obtained from the patient. Yes * Community resources currently utilized None * Additional services required to return to the preadmission environment? Yes * Can the patient safely return to the preadmission environment? Yes * Has this patient been hospitalized within the prior 30 days at any hospital? No Last DP export: 08/01/19 9:18 a Patient Name: RYAN JUDD Page 42281 at 1251 All edits/amendments must be made on the electronic document DICTATION DATE: 08/01/19 1251 SYSTEM SAFETY MANAGER: JOJO 08/01/19 1251 RPT#: [id number] DC DATE: STATUS: ADM IN [facility] [address] [place] [address] END OF REPORT
[2019-08-01 16:52] VITALS: BP 141/69
--- NOTE | 2019-08-01 17:21 | NUR ---
I have reviewed this patient and I concur with the Shift Assessment completed by the Licensed Practical Nurse today this shift.
[2019-08-01 20:00] VITALS: BP 153/70
[2019-08-02] VITALS (14 sets, daily range): BP systolic 147–173; BP diastolic 69–89
[2019-08-02 05:48] LABS: BASOPHILS 0.6 % (0-2); EOSINOPHILS 15.5 % (0-7); HEMATOCRIT 28.5 % (42.0-54.0); HEMOGLOBIN 8.6 g/dL (13.5-17.5); IMMATURE GRANULOCYTES 0.4 % (0-5); LYMPHOCYTES 16.5 % (15-50); MCH 29.2 pg (26.0-34.0); MCHC 30.2 g/dL (31.0-37.0); MCV 96.6 fL (80.0-100.0); MEAN PLATELET VOLUME 9.6 fL (7.4-10.4); MONOCYTES 7.8 % (2-11); NEUTROPHILS 59.2 % (40-80); PLATELET COUNT 262 10x3/uL (130-400); RBC 2.95 10x6/uL (4.20-6.10); RDW 17.7 % (11.5-14.5); WBC 5.2 10x3/uL (4.8-10.8)
[2019-08-02 06:22] LABS: ANION GAP 14.4 mmol/L (8-16); BILIRUBIN - TOTAL 5.01 mg/dL (0.2-1.3); CARBON DIOXIDE 18.5 mmol/L (21.0-32.0); CREATININE - SERUM 1.4 mg/dL (0.6-1.3); MAGNESIUM - SERUM 1.4 mg/dL (1.8-2.4); PHOSPHOROUS 2.4 mg/dL (2.5-4.9); POTASSIUM - SERUM 3.9 mmol/L (3.5-5.1); PROTEIN - SERUM 5.3 g/dL (6.4-8.2)
--- NOTE | 2019-08-02 07:15 | NUR ---
ASSESSMENT DONE. DENIES NEEDS
[2019-08-02 08:13] LABS: APTT 41.8 SECONDS (22.8-39.4); INR 1.22 (0.85-1.17); PROTIME 15.4 SECONDS (11.6-15.0)
--- NOTE | 2019-08-02 10:09 | NUR ---
TO OR PER BED
--- NOTE | 2019-08-02 10:11 | NUR ---
I have reviewed this patient and I concur with the Shift Assessment completed by the Licensed Practical Nurse today this shift.
[2019-08-03] VITALS: BP 154/74
[2019-08-03 04:00] VITALS: BP 108/69
[2019-08-03 06:14] LABS: BASOPHILS 0.3 % (0-2); EOSINOPHILS 7.9 % (0-7); HEMATOCRIT 29.6 % (42.0-54.0); IMMATURE GRANULOCYTES 0.4 % (0-5); LYMPHOCYTES 11.5 % (15-50); MCH 29.5 pg (26.0-34.0); MCHC 30.4 g/dL (31.0-37.0); MEAN PLATELET VOLUME 9.1 fL (7.4-10.4); MONOCYTES 7.8 % (2-11); NEUTROPHILS 72.1 % (40-80); PLATELET COUNT 240 10x3/uL (130-400); RBC 3.05 10x6/uL (4.20-6.10); RDW 17.4 % (11.5-14.5); WBC 6.7 10x3/uL (4.8-10.8)
[2019-08-03 06:48] LABS: ANION GAP 12.6 mmol/L (8-16); BILIRUBIN - TOTAL 3.84 mg/dL (0.2-1.3); CARBON DIOXIDE 21.2 mmol/L (21.0-32.0); CREATININE - SERUM 1.4 mg/dL (0.6-1.3); MAGNESIUM - SERUM 1.5 mg/dL (1.8-2.4); POTASSIUM - SERUM 3.8 mmol/L (3.5-5.1); PROTEIN - SERUM 5.3 g/dL (6.4-8.2)
[2019-08-03 08:55] VITALS: BP 160/67
--- NOTE | 2019-08-03 10:27 | NUR ---
Nutrition Follow-up: Pt ate ~50% of breakfast this AM and 100% of dinner last night with a snack. Diet: Renal Wt: 177# (08/01); 177.4# (07/31); 170# (07/27 - stated) Labs noted: Ca 8.0, Mg 1.5, Alb 2.0, GFR 52, K+ 3.8, PO4 2.4 Meds noted: MagOx, Senokot, Colace, Zofran, NS @ 150, electrolyte protocol -MD may consider liberalizing diet 2/2 normalizing of renal labs. -Encourage PO intake and honor food preferences within diet restrictions. -Monitor wt; noted daily wts ordered. -RD following.
[2019-08-03 12:41] VITALS: BP 154/87
[2019-08-03 16:34] VITALS: BP 166/74
--- NOTE | 2019-08-03 19:00 | NUR ---
EVENING ROUNDS COMPLETE. PT LAYING IN BED. NO SIGNS OF DISTRESS. PT DENIES ANY PAIN OR NEEDS AT THIS TIME. CL IN REACH, BED IN LOWEST POSITION.
[2019-08-03 20:00] VITALS: BP 159/73
[2019-08-04] VITALS: BP 154/70
[2019-08-04 04:00] VITALS: BP 150/69
[2019-08-04 05:48] LABS: BASOPHILS 0.5 % (0-2); EOSINOPHILS 11.6 % (0-7); HEMATOCRIT 27.2 % (42.0-54.0); HEMOGLOBIN 8.1 g/dL (13.5-17.5); IMMATURE GRANULOCYTES 0.2 % (0-5); LYMPHOCYTES 13.8 % (15-50); MCH 28.8 pg (26.0-34.0); MCHC 29.8 g/dL (31.0-37.0); MCV 96.8 fL (80.0-100.0); MEAN PLATELET VOLUME 9.7 fL (7.4-10.4); MONOCYTES 10.1 % (2-11); NEUTROPHILS 63.8 % (40-80); PLATELET COUNT 233 10x3/uL (130-400); RBC 2.81 10x6/uL (4.20-6.10); RDW 16.7 % (11.5-14.5); WBC 6.2 10x3/uL (4.8-10.8)
[2019-08-04 06:12] LABS: ALBUMIN 1.8 g/dL (3.4-5.0); BILIRUBIN - TOTAL 3.38 mg/dL (0.2-1.3); CALCIUM 7.6 mg/dL (8.5-10.1); CARBON DIOXIDE 20.8 mmol/L (21.0-32.0); CREATININE - SERUM 1.2 mg/dL (0.6-1.3); MAGNESIUM - SERUM 1.4 mg/dL (1.8-2.4); PROTEIN - SERUM 5.5 g/dL (6.4-8.2)
[2019-08-04 06:13] LABS: ANION GAP 12.3 mmol/L (8-16); POTASSIUM - SERUM 3.1 mmol/L (3.5-5.1)
--- NOTE | 2019-08-04 07:50 | MORECARE ---
CASE MANAGEMENT DISCHARGE SUMMARY PATIENT: RAYN JUDD UNIT: [id number] ADM DATE: 07/28/19 AGE: 73 : 43 SEX: M ROOM/BED: D.2167 AUTHOR: PEARL AL PHYSICIAN: REFERRING PHYSICIAN: CRYSTAL OATES MD DATE OF SERVICE: 08/04/19 Discharge Plan Patient Name: RYAN JUDD Facility: [facility]:[place] : 1945 Planned Disposition: Home with Home Health Anticipated Discharge Date: Discharge Date: Expected LOS: Initial Reviewer: [email or web address] Initial Review Date: 08/01/2019 Generated: 08/04/19 8:49 am DCP- Discharge Planning Updated by [email or web address]: Joana Taylor on 08/01/19 9:[address] Patient Name: RYAN JUDD Admission Status: ER Accout number: [id number] Admission Date: 07-28-2019 : 1945 Admission Diagnosis:NAUSEA WITH VOMITING, UNSPECIFIED Attending: CRYSTAL OATES Current LOS: 4 Anticipated DC Date: Planned Disposition: Home with Home Health Primary Insurance: MEDICARE A & B Discharge Planning Comments: CM met with patient to discuss discharge planning/needs. He lives with his independently of all ADL's and IADL's. He states he still plays tennis. He states he does not have any DME or need any DME. He states he would like his and daughter to get medical information and I set up his code and gave it to him in writing. I called his per his request and gave her the code. His daughter spoke with me with his permission and is inquiring about home health. I have given her the list of home health and hospice with the website to compare companies. His daughter states she will call me back with their choice. She states the first choice will be home with home health. CM will continue to follow and assist with discharge planning/needs. Quantitative Analyst Marketing: Joana Taylor DCPIA - Discharge Planning Initial Assessment Updated by [email or web address]: Joana Taylor on 08/01/19 10:09 am * Is the patient Alert and Oriented? Yes * How many steps to enter\exit or inside your home? 0/0 * PCP Dr. Migue Mclain * Pharmacy [facility] * Preadmission Environment Home with Family * ADLs Independent * Equipment None * List name and contact numbers for known caregivers / representatives who currently or will assist patient after discharge: Mary Judd - spouse - [phone] Emily Velasquez - DTR - [phone] * Verbal permission to speak to the caregivers and representatives has been obtained from the patient. Yes * Community resources currently utilized None * Additional services required to return to the preadmission environment? Yes * Can the patient safely return to the preadmission environment? Yes * Has this patient been hospitalized within the prior 30 days at any hospital? No Last DP export: 08/01/19 11:51 a Patient Name: RYAN JUDD Page [phone] at 0750 All edits/amendments must be made on the electronic document DICTATION DATE: 08/04/1949 PHYSICAL MEDICINE SPECIALIST: JOJO 08/04/19 0749 RPT#: [id number] DC DATE: STATUS: ADM IN [facility] [address] [place] [address] END OF REPORT
[2019-08-04 08:24] VITALS: BP 157/67
--- NOTE | 2019-08-04 08:24 | MORECARE ---
CASE MANAGEMENT DISCHARGE SUMMARY PATIENT: RYAN JUDD UNIT: [id number] ADM DATE: 07/28/19 AGE: 73 : 43 SEX: M ROOM/BED: D.2102 AUTHOR: PEARL AL PHYSICIAN: REFERRING PHYSICIAN: CRYSTAL OATES MD DATE OF SERVICE: 08/04/19 Discharge Plan Patient Name: RYAN JUDD Facility: [facility]:[place] : 1945 Planned Disposition: Home with Home Health Anticipated Discharge Date: Discharge Date: Expected LOS: Initial Reviewer: [email or web address] Initial Review Date: 08/01/2019 Generated: 08/04/19 9:23 am Comments DCP- Discharge Planning Updated by : Renetta Arnett on 08/04/19 7:[address] Patient Name: RYAN JUDD Encounter No: [id number] : 1945 Primary Insurance: MEDICARE A & B Anticipated DC Date: Planned Disposition: Home with Home Health External Planned Provider: : late entry 08/03/19 @ 1630 DCP follow-up note: Cm spoke with pt family. Provided update on patient condition, and answered questions about home health services. [facility] signed for [employer], and [employer]. KEELEY spoke with both [employer] for nursing availability for a tentative dc of next few days. [facility] at [phone] has available nurses. Will fax clinicals to start referral. Patient and family in agreement with discharge plan. Case management will follow and assist as needed. Renetta Arnett MSN,RN,CM DCP- Discharge Planning Updated by [email or web address]: Joana Taylor on 08/01/19 9:[address] Patient Name: RYAN JUDD Admission Status: ER Accout number: [id number] Admission Date: 07-28-2019 : 1945 Admission Diagnosis:NAUSEA WITH VOMITING, UNSPECIFIED Attending: CRYSTAL OATES Current LOS: 4 Anticipated DC Date: Planned Disposition: Home with Home Health Primary Insurance: MEDICARE A & B Discharge Planning Comments: CM met with patient to discuss discharge planning/needs. He lives with his independently of all ADL's and IADL's. He states he still plays tennis. He states he does not have any DME or need any DME. He states he would like his and daughter to get medical information and I set up his code and gave it to him in writing. I called his per his request and gave her the code. His daughter spoke with me with his permission and is inquiring about home health. I have given her the list of home health and hospice with the website to compare companies. His daughter states she will call me back with their choice. She states the first choice will be home with home health. CM will continue to follow and assist with discharge planning/needs. Colorectal Surgeon: Joana Taylor DCPIA - Discharge Planning Initial Assessment Updated by [email or web address]: Joana Taylor on 08/01/19 10:09 am * Is the patient Alert and Oriented? Yes * How many steps to enter\exit or inside your home? 0/0 * PCP Dr. Migue Mclain * Pharmacy [facility] * Preadmission Environment Home with Family * ADLs Independent * Equipment None * List name and contact numbers for known caregivers / representatives who currently or will assist patient after discharge: Mary Judd - spouse - [phone] Emily Velasquez - DTR - [phone] * Verbal permission to speak to the caregivers and representatives has been obtained from the patient. Yes * Community resources currently utilized None * Additional services required to return to the preadmission environment? Yes * Can the patient safely return to the preadmission environment? Yes * Has this patient been hospitalized within the prior 30 days at any hospital? No Last DP export: 08/04/19 6:50 a Patient Name: RYAN JUDD Page 63772 at 0824 All edits/amendments must be made on the electronic document DICTATION DATE: 08/04/19822 ROLL OUT MANAGER: JOJO 08/04/19822 RPT#: [id number] DC DATE: STATUS: ADM IN [facility] [address] [place] [address] END OF REPORT
--- NOTE | 2019-08-04 08:37 | MORECARE ---
CASE MANAGEMENT DISCHARGE SUMMARY PATIENT: RYAN JUDD UNIT: [id number] ADM DATE: 07/28/19 AGE: 73 : 43 SEX: M ROOM/BED: D.2107 AUTHOR: PEARL AL PHYSICIAN: REFERRING PHYSICIAN: CRYSTAL OATES MD DATE OF SERVICE: 08/04/19 Discharge Plan Patient Name: RYAN JUDD Facility: [facility]:[place] : 1945 Planned Disposition: Home with Home Health Anticipated Discharge Date: Discharge Date: Expected LOS: Initial Reviewer: [email or web address] Initial Review Date: 08/01/2019 Generated: 08/04/19 9:37 am Comments DCP- Discharge Planning Updated by [id number]: Renetta Arnett on 08/04/19 7:[address] Patient Name: RYAN JUDD Encounter No: [id number] : 1945 Primary Insurance: MEDICARE A & B Anticipated DC Date: Planned Disposition: Home with Home Health External Planned Provider: : late entry 08/03/19 @ 1630 DCP follow-up note: Cm spoke with pt family. Provided update on patient condition, and answered questions about home health services. [facility] signed for [employer], and [employer]. KEELEY spoke with both [employer] for nursing availability for a tentative dc of next few days. [facility] at [phone] has available nurses. Will fax clinicals to start referral. Patient and family in agreement with discharge plan. Case management will follow and assist as needed. Renetta Arnett MSN,RN,CM DCP- Discharge Planning Updated by [id number]: Joana Taylor on 08/01/19 9:[address] Patient Name: RYAN JUDD Admission Status: ER Accout number: [id number] Admission Date: 07-28-2019 : 1945 Admission Diagnosis:NAUSEA WITH VOMITING, UNSPECIFIED Attending: CRYSTAL OATES Current LOS: 4 Anticipated DC Date: Planned Disposition: Home with Home Health Primary Insurance: MEDICARE A & B Discharge Planning Comments: CM met with patient to discuss discharge planning/needs. He lives with his independently of all ADL's and IADL's. He states he still plays tennis. He states he does not have any DME or need any DME. He states he would like his and daughter to get medical information and I set up his code and gave it to him in writing. I called his per his request and gave her the code. His daughter spoke with me with his permission and is inquiring about home health. I have given her the list of home health and hospice with the website to compare companies. His daughter states she will call me back with their choice. She states the first choice will be home with home health. CM will continue to follow and assist with discharge planning/needs. Choir Leader: Joana Taylor DCPIA - Discharge Planning Initial Assessment Updated by [email or web address]: Joana Taylor on 08/01/19 10:09 am * Is the patient Alert and Oriented? Yes * How many steps to enter\exit or inside your home? 0/0 * PCP Dr. Migue Mclain * Pharmacy [facility] [address] [facility] * Preadmission Environment Home with Family * ADLs Independent * Equipment None * List name and contact numbers for known caregivers / representatives who currently or will assist patient after discharge: Mary Judd - spouse - [phone] Emily Velasquez - DTR - [phone] * Verbal permission to speak to the caregivers and representatives has been obtained from the patient. Yes * Community resources currently utilized None * Additional services required to return to the preadmission environment? Yes * Can the patient safely return to the preadmission environment? Yes * Has this patient been hospitalized within the prior 30 days at any hospital? No External Providers External Provider: [facility] Next Contact Date: Service Request Date: Service Type: Resolution: Reviewer: Comments: Coverage Notice Reviewer: [id number] Nevin Arnett Notice Issued Date-Time: 08/03/2019 16:00 Notice Type: Patient Choice Letter Notice Delivered To: Family Member Relationship to Patient: Daughter Substitute Crossing Guard Name: EMILY MENDEZ Delivery Method: PHONE - Phone Roberta Days: Prior Verbal Notification: Yes Recipient Understood Notice: Yes Recipient Signature: Med Rec Note Co-signed by Attending: Coverage Notice Comment: [facility] SIGNED FOR [facility] Last DP export: 08/04/19 7:24 a Patient Name: DUTCHRYAN Page 75520 at 0837 All edits/amendments must be made on the electronic document DICTATION DATE: 08/04/19836 AEROSOL SUPERVISOR: JOJO 08/04/19836 RPT#: [id number] DC DATE: STATUS: ADM IN [facility] [address] [facility] [place] [address] END OF REPORT
--- NOTE | 2019-08-04 11:25 | NUR ---
DR NEWBY'S OFFICE CALLED AND SAID OK FOR DISCHARGE. [facility] HAS APPT FOR THURSDAY 08/10 AT 1015 FOR TREATMENT. RECOMMENDS GOING HOME WITH ZOFRAN 8 MG Q6 HRS PRN AND WILL NEED SOME TYLENOL #4. MAY HAVE TO STOP BY OFFICE IF DISCHARGED FOR SCRIPT IF HOSPITAL DOCTOR DEFER PRESCRIBING.
[2019-08-04] MEDS ORDERED: TYLENOL #4 W/CO1 TAB (11:31)
[2019-08-04] MEDS ORDERED: Senokot TAB PO (11:46)
--- NOTE | 2019-08-04 11:56 | MORECARE ---
CASE MANAGEMENT DISCHARGE SUMMARY PATIENT: RYAN JUDD UNIT: [id number] ADM DATE: 07/28/19 AGE: 73 : 43 SEX: M ROOM/BED: D.2100 AUTHOR: SERVANDO,DOC PHYSICIAN: REFERRING PHYSICIAN: CRYSTAL OATES MD DATE OF SERVICE: 08/04/19 Discharge Plan Patient Name: RYAN JUDD Facility: [facility]:[place] : 1945 Planned Disposition: Home with Home Health Anticipated Discharge Date: Discharge Date: Expected LOS: Initial Reviewer: [email or web address] Initial Review Date: 08/01/2019 Generated: 08/04/19 12:55 pm Comments DCP- Discharge Planning Updated by [id number]: Joana Taylor on 08/04/19 10:[address] Patient Name: RYAN JUDD Encounter No: [id number] : 1945 Primary Insurance: MEDICARE A & B Anticipated DC Date: Planned Disposition: Home with Home Health External Planned Provider: : DCP follow-up note: Patient and family in agreement with discharge plan. No changes to plan. I spoke with patient's and daughter and they do have a RX at home for Tylenol #4 and Zofran PRN. In instructed them to call Dr. Pablo's or Chemo's office for refill needed on these Rx prior to the weekend. I spoke with Melissa at [facility] and they have him on the schedule for tomorrow. Case management will follow and assist as needed. Joana Taylor DCP- Discharge Planning Updated by [email or web address]: Renetta Arnett on 08/04/19 7:[address] Patient Name: RYAN JUDD Encounter No: [id number] : 1945 Primary Insurance: MEDICARE A & B Anticipated DC Date: Planned Disposition: Home with Home Health External Planned Provider: : late entry 08/03/19 @ 1630 DCP follow-up note: John spoke with pt family. Provided update on patient condition, and answered questions about home health services. [facility] signed for [employer], and [employer]. CM spoke with both [employer] for nursing availability for a tentative dc of next few days. [facility] at [phone] has available nurses. Will fax clinicals to start referral. Patient and family in agreement with discharge plan. Case management will follow and assist as needed. Renetta Arnett MSN,RN,CM DCP- Discharge Planning Updated by [id number]: Joana Taylor on 08/01/19 9:[address] Patient Name: RYAN JUDD Admission Status: ER Accout number: [id number] Admission Date: 07-28-2019 : 1945 Admission Diagnosis:NAUSEA WITH VOMITING, UNSPECIFIED Attending: CRYSTAL OATES Current LOS: 4 Anticipated DC Date: Planned Disposition: Home with Home Health Primary Insurance: MEDICARE A & B Discharge Planning Comments: CM met with patient to discuss discharge planning/needs. He lives with his independently of all ADL's and IADL's. He states he still plays tennis. He states he does not have any DME or need any DME. He states he would like his and daughter to get medical information and I set up his code and gave it to him in writing. I called his per his request and gave her the code. His daughter spoke with me with his permission and is inquiring about home health. I have given her the list of home health and hospice with the website to compare companies. His daughter states she will call me back with their choice. She states the first choice will be home with home health. CM will continue to follow and assist with discharge planning/needs. Car Electronics Installer: Joana Brandon VELIZPIA - Discharge Planning Initial Assessment Updated by [id number]: Joana Evansvish on 08/01/19 10:09 am * Is the patient Alert and Oriented? Yes * How many steps to enter\exit or inside your home? 0/0 * PCP Dr. Migue Mclain * Pharmacy [facility] * Preadmission Environment Home with Family * ADLs Independent * Equipment None * List name and contact numbers for known caregivers / representatives who currently or will assist patient after discharge: Mary Judd - spouse - [phone] Shahab Velasquez - DTR - [phone] * Verbal permission to speak to the caregivers and representatives has been obtained from the patient. Yes * Community resources currently utilized None * Additional services required to return to the preadmission environment? Yes * Can the patient safely return to the preadmission environment? Yes * Has this patient been hospitalized within the prior 30 days at any hospital? No Coverage Notice Reviewer: [id number] Nevin Arnett Notice Issued Date-Time: 08/03/2019 16:00 Notice Type: Patient Choice Letter Notice Delivered To: Family Member Relationship to Patient: Daughter Distresser Name: SHAHAB MENDEZ Delivery Method: PHONE - Phone Roberta Days: Prior Verbal Notification: Yes Recipient Understood Notice: Yes Recipient Signature: Med Rec Note Co-signed by Attending: Coverage Notice Comment: [facility] SIGNED FOR [facility] Reviewer: [id number] Nevin Taylor Notice Issued Date-Time: 08/04/2019 11:54 Notice Type: IM Discharge Notice Notice Delivered To: Patient Relationship to Patient: Self Distresser Name: Delivery Method: HAND - Hand Delivered Roberta Days: Prior Verbal Notification: Recipient Understood Notice: Yes Recipient Signature: Yes Med Rec Note Co-signed by Attending: Coverage Notice Comment: IMM explained, signed, given, copy placed in MR Last DP export: 08/04/19 7:37 a Patient Name: RYAN JUDD Page 10510 at 1156 All edits/amendments must be made on the electronic document DICTATION DATE: 08/04/19 1155 INTERNAL CORROSION SPECIALIST: JOJO 08/04/19 1155 RPT#: [id number] DC DATE: STATUS: ADM IN [facility] [address] [place] [address] END OF REPORT
[2019-08-04 12:34] VITALS: BP 165/80
--- NOTE | 2019-08-04 13:46 | NUR ---
PT'S NOTIFIED OF DISCHARGE. PORT ACCESS REMOVED AND HEPARIN LOCKED, DRESSING APPLIED. INSTRUCTIONS REVIEWED AND SIGNED.
--- NOTE | 2019-08-04 15:54 | NUR ---
PT WHEELED TO FRONT DOOR FOR DISCHARGE. INSTRUCTIONS REVIEWED WITH FAMILY.
--- NOTE | 2019-08-06 09:16 | MORECARE ---
CASE MANAGEMENT DISCHARGE SUMMARY PATIENT: RYAN JUDD UNIT: [id number] ADM DATE: 07/28/19 AGE: 73 : 43 SEX: M ROOM/BED: D.2104 AUTHOR: SERVANDO,DOC PHYSICIAN: REFERRING PHYSICIAN: CRYSTAL OATES MD DATE OF SERVICE: 08/06/19 Discharge Plan Patient Name: RYAN JUDD Facility: [facility]:[place] : 1945 Planned Disposition: Home with Home Health Anticipated Discharge Date: Discharge Date: 08/04/2019 Expected LOS: 0 Initial Reviewer: [email or web address] Initial Review Date: 08/01/2019 Generated: 08/06/19 10:15 am Comments DCP- Discharge Planning Updated by [email or web address]: Joana Taylor on 08/04/19 10:[address] Patient Name: RYAN JUDD Encounter No: [id number] : 1945 Primary Insurance: MEDICARE A & B Anticipated DC Date: Planned Disposition: Home with Home Health External Planned Provider: : DCP follow-up note: Patient and family in agreement with discharge plan. No changes to plan. I spoke with patient's and daughter and they do have a RX at home for Tylenol #4 and Zofran PRN. In instructed them to call Dr. Pablo's or Chemo's office for refill needed on these Rx prior to the weekend. I spoke with Melissa at [facility] and they have him on the schedule for tomorrow. Case management will follow and assist as needed. Joana Taylor DCP- Discharge Planning Updated by [id number]: Renetta Arnett on 08/04/19 7:[address] Patient Name: RYAN JUDD Encounter No: [id number] : 1945 Primary Insurance: MEDICARE A & B Anticipated DC Date: Planned Disposition: Home with Home Health External Planned Provider: : late entry 08/03/19 @ 1630 DCP follow-up note: Cm spoke with pt family. Provided update on patient condition, and answered questions about home health services. [facility] signed for [employer], and [employer]. CM spoke with both [employer] for nursing availability for a tentative dc of next few days. [facility] at [phone] has available nurses. Will fax clinicals to start referral. Patient and family in agreement with discharge plan. Case management will follow and assist as needed. Renetta Arnett MSN,RN,CM DCP- Discharge Planning Updated by [id number]: Joana Evansvish on 08/01/19 9:[address] Patient Name: RYAN JUDD Admission Status: ER Accout number: [id number] Admission Date: 07-28-2019 : 1945 Admission Diagnosis:NAUSEA WITH VOMITING, UNSPECIFIED Attending: CRYSTAL OATES Current LOS: 4 Anticipated DC Date: Planned Disposition: Home with Home Health Primary Insurance: MEDICARE A & B Discharge Planning Comments: CM met with patient to discuss discharge planning/needs. He lives with his independently of all ADL's and IADL's. He states he still plays tennis. He states he does not have any DME or need any DME. He states he would like his and daughter to get medical information and I set up his code and gave it to him in writing. I called his per his request and gave her the code. His daughter spoke with me with his permission and is inquiring about home health. I have given her the list of home health and hospice with the website to compare companies. His daughter states she will call me back with their choice. She states the first choice will be home with home health. CM will continue to follow and assist with discharge planning/needs. Surgical Consultant: Joana Brandon DCPIA - Discharge Planning Initial Assessment Updated by [email or web address]: Joana Brandon on 08/01/19 10:09 am * Is the patient Alert and Oriented? Yes * How many steps to enter\exit or inside your home? 0/0 * PCP Dr. Migue Mclain * [facility] * Preadmission Environment Home with Family * ADLs Independent * Equipment None * List name and contact numbers for known caregivers / representatives who currently or will assist patient after discharge: Mary Judd - spouse - [phone] Shahab Velasquez - DTR - [phone] * Verbal permission to speak to the caregivers and representatives has been obtained from the patient. Yes * Community resources currently utilized None * Additional services required to return to the preadmission environment? Yes * Can the patient safely return to the preadmission environment? Yes * Has this patient been hospitalized within the prior 30 days at any hospital? No Coverage Notice Reviewer: [id number] Nevin Arnett Notice Issued Date-Time: 08/03/2019 16:00 Notice Type: Patient Choice Letter Notice Delivered To: Family Member Relationship to Patient: Daughter Bridge Maintenance Worker Name: SHAHAB MENDEZ Delivery Method: PHONE - Phone Roberta Days: Prior Verbal Notification: Yes Recipient Understood Notice: Yes Recipient Signature: Med Rec Note Co-signed by Attending: Coverage Notice Comment: [facility] SIGNED FOR [facility] Reviewer: [id number] - Joana Taylor Notice Issued Date-Time: 08/04/2019 11:54 Notice Type: IM Discharge Notice Notice Delivered To: Patient Relationship to Patient: Self Bridge Maintenance Worker Name: Delivery Method: HAND - Hand Delivered Roberta Days: Prior Verbal Notification: Recipient Understood Notice: Yes Recipient Signature: Yes Med Rec Note Co-signed by Attending: Coverage Notice Comment: IMM explained, signed, given, copy placed in MR Last DP export: 08/04/19 10:56 a Patient Name: RYAN JUDD Page 10081 at 0916 All edits/amendments must be made on the electronic document DICTATION DATE: 08/06/19915 SUPERVISOR CONTINUOUS WELD PIPE MILL: JOJO 08/06/19915 RPT#: [id number] DC DATE:08/04/19 STATUS: DIS IN [facility] [address] [place] [address] END OF REPORT
== END 2019-08-04 15:55 | disposition home health service (06) | DRG 919 ==
LOC: D.ER 10:49 → D.M2 12:48
PROVIDERS: Family Medicine; General Practice; Internal Medicine Nephrology; ADMIT Internal Medicine Nephrology; ATTEND Internal Medicine Nephrology
PROC: 0F24X0Z Change Drainage Device in Gallbladder, External Approach (ICD-10-PCS; 2019-07-28)
PROC: BF101ZZ Fluoroscopy of Bile Ducts using Low Osmolar Contrast (ICD-10-PCS; principal; 2019-07-28 17:58)
PROC: 0F793DZ Dilation of Common Bile Duct with Intraluminal Device, Percutaneous Approach (ICD-10-PCS; 2019-07-31)
PROC: 0JH63XZ Insertion of Tunneled Vascular Access Device into Chest Subcutaneous Tissue and Fascia, Percutaneous Approach (ICD-10-PCS; 2019-08-02)
PROC: 05HS33Z Insertion of Infusion Device into Left Vertebral Vein, Percutaneous Approach (ICD-10-PCS; 2019-08-02)
PROC: BF101ZZ Fluoroscopy of Bile Ducts using Low Osmolar Contrast (ICD-10-PCS; 2019-08-02)
DX: T85.9XXA Unspecified complication of internal prosthetic device, implant and graft, initial encounter (principal); K85.90 Acute pancreatitis without necrosis or infection, unspecified; K83.1 Obstruction of bile duct; N17.0 Acute kidney failure with tubular necrosis; C25.9 Malignant neoplasm of pancreas, unspecified; N39.0 Urinary tract infection, site not specified; C78.7 Secondary malignant neoplasm of liver and intrahepatic bile duct; E03.9 Hypothyroidism, unspecified; K21.9 Gastro-esophageal reflux disease without esophagitis; D63.0 Anemia in neoplastic disease; E86.0 Dehydration; Y84.9 Medical procedure, unspecified as the cause of abnormal reaction of the patient, or of later complication, without mention of misadventure at the time of the procedure

== ENCOUNTER 2019-08-11 07:54 | Outpatient (CLI) | payer MEDICARE, OTHER ==
[~2019-08-11] VITALS: Ht 175.3 cm; Wt 81.4 kg
--- NOTE | ~2019-08-11 | HEMODYNAMI ---
PATIENT:RYAN JUDD MEDICAL RECORD: [id number] : 41 [id number] ADMISSION DATE: 08/11/19 Generatedon:08/11/201911:48 Patient name: RYAN JUDD Patient #: [id number] SSN: : 1945 Date of study: 08/11/2019 Page: Of Hemodynamic Procedure Report Patient Data Patient Demographics Procedure consent was obtained First Name: RYAN Gender: Male Last Name: DUTCH : 1945 Middle Initial: F Age: 73 year(s) Patient #: [id number] Race: Unknown Additional ID: [id number] Contact details [address]: [address] [place] [address] State: [place] City: [place] Zip code: [address] Past Medical History Allergies Allergen Reaction Date Comments Reported Other allergy 07/21/2019 sedation meds, patient unsure of which ones Other allergy 07/31/2019 sedation meds, patient unsure of what ones Admission Admission Data Admission Date: 08/11/2019 Admission Time: 7:54 Procedure Procedure Types Cath Procedure Peripheral Cath Diagnostic Procedure Biliary Cholangio Thru Existing Procedure Description Procedure Date Procedure Date: 08/11/2019 Procedure Start Time: 11:20 Procedure Staff Name Function Brendon Kimbrough MD Performing Physician Jordan Yu RT Monitor MARY TITUS RT Scrub Robyn Jesus RN Nurse Procedure Data Cath Procedure Fluoroscopy Diagnostic fluoroscopy Total fluoroscopy Time: 5.1 time: 5.1 min min Diagnostic fluoroscopy Total fluoroscopy dose: 94 dose: 94 mGy mGy Contrast Material Contrast Material Type Amount (ml) Isovue 300 20 Procedure Medications Medication Administration Route Dosage Heparin Flush Bag added to field 1 bags (1000units/500ml NS) Lidocaine 1% added to field 20 Versed I.V. 1 mg Fentanyl I.V. 50 mcg Versed I.V. 1 mg Fentanyl I.V. 50 mcg Hemodynamics Rest Heart Rate: 68 (bpm) Snapshots Pre Cath Intra NCS Post Cath Vital Signs Time Heart Resp SPO2 etCO2 NIBP (mmHg) Rhythm Pain Status Sedation Rate (ipm) (%) (mmHg) Level (bpm) 10:25:13 65 13 32.9 No Cuff NSR 0 (11) , No 10(A) pain 10:29:12 67 19 29.9 No Cuff NSR 0 (11) , No 10(A) pain 10:33:12 66 13 32.2 No Cuff NSR 0 (11) , No 10(A) pain 10:37:28 64 12 32.9 156/72(96) NSR 0 (11) , No 10(A) pain 10:41:46 67 13 29.1 159/75(113) NSR 0 (11) , No 10(A) pain 10:46:02 83 11 25.4 159/87(131) NSR 0 (11) , No 10(A) pain 10:50:20 62 24 31.4 159/75(103) NSR 0 (11) , No 10(A) pain 10:54:40 61 13 29.9 175/73(100) NSR 0 (11) , No 10(A) pain 10:59:03 61 14 32.1 158/70(95) NSR 0 (11) , No 10(A) pain 11:04:02 62 12 32.9 Measuring NSR 0 (11) , No 10(A) pain 11:04:28 63 18 31.4 158/71(95) NSR 0 (11) , No 10(A) pain 11:08:48 64 17 29.1 158/74(96) NSR 0 (11) , No 10(A) pain 11:13:08 62 15 31.4 159/75(98) NSR 0 (11) , No 10(A) pain 11:17:29 67 14 32.9 157/70(104) NSR 0 (11) , No 10(A) pain 11:21:49 68 12 100 33.7 167/68(98) NSR 0 (11) , No 9(A) pain 11:26:15 63 14 100 35.2 152/66(96) NSR 4 (11) , 8(A) Distressing 11:30:29 64 15 100 26.2 161/84(107) NSR 4 (11) , 8(A) Distressing 11:35:28 74 10 100 27.7 Measuring NSR 4 (11) , 8(A) Distressing 11:35:48 75 12 100 26.9 191/89(135) NSR 4 (11) , 8(A) Distressing 11:40:19 70 15 100 32.2 176/79(120) NSR 4 (11) , 8(A) Distressing 11:44:45 67 14 100 30.7 174/73(107) NSR 4 (11) , 8(A) Distressing Medications Time Medication Route Dose Verified Delivered Reason Notes Effe ctiveness by by 11:21:35 Heparin Flush added 1 Brendon Olivas used for Bag to bags aKylan Kimbrough MD procedure (1000units/500ml field MONTERO NS) 11:21:46 Lidocaine 1% added 20ml Brendon Olivas for local to vial Kaylan Kimbrough MD anesthetic field MONTERO 11:21:59 Versed I.V. 1 mg Brendon Carlson for Edin Kimbrough RN sedation 11:22:10 Fentanyl I.V. 50 Brendon Carlson for mcg Edin Kimbrough RN sedation 11:32:21 Versed I.V. 1 mg Brendon Carlson for Edin Kimbrough RN sedation 11:32:33 Fentanyl I.V. 50 Brendon Carlson for mcg Edin Kimbrough RN sedation Procedure Log Time Note 10:12:18 Jordan Yu RT (R) (CV) sent for patient. Start room use. 10:12:31 Time tracking: Regular hours (M-F 7:00 - 5:00) 10:12:36 Plan of Care:Hemodynamics will remain stable., Cardiac rhythm will remain stable., Comfort level will be maintained., Respiratory function will remain adequate., Patient/ family verbilizes understanding of procedure., Procedure tolerated without complication., Recovers from procedure without complications.. 10:12:40 Patient received from Outpatients to IR Alert and oriented. Tansferred to table in Supine position. 10:12:43 Signed procedure consent form obtained from patient. 10:12:44 Correct patient and procedure confirmed by team. 10:12:45 Full Disclosure recording started 10:12:46 ECG and BP/O2 sat monitors applied to patient. 10:12:47 - 10:12:48 - 10:12:51 H&P Date Dictated: 08/11/2019 H&P Addendum completed by physician on day of procedure. (MUST COMPLETE FOR ALL OUTPATIENTS). 10:12:51 Pre-procedure instructions explained to patient. 10:12:52 Pre-op teaching completed and patient verbalized understanding. 10:12:53 Family in waiting room. 10:12:55 Patient NPO since Midnight. 10:12:59 Is the patient allergic to Iodine/contrast media? No. 10:13:01 Is patient on blood thinner?No 10:13:02 Patient diabetic? No. 10:13:04 - 10:13:04 ----Pre-sedation anethsthesia assessment.---- 10:13:18 Previous problem with sedation/anesthesia? Yes un sure of what sedation ' 10:13:20 Snore? Yes 10:13:22 Sleep apnea? No 10:13:24 Deviated septum? No 10:13:26 Opens mouth fully? Yes 10:13:28 Sticks out tongue? Yes 10:13:32 Airway obstruction? No ? 10:13:34 Dentures? No ? 10:13:38 Use device set IR Diagnostic 10:13:40 Bag Decanter (2001S) opened to sterile field. 10:13:40 Sterile Angiographic Pack opened to sterile field. 10:13:40 Tegaderm 4 x 4 (1626W) opened to sterile field. 10:17:45 Patient pain scale 0/10 no pain. 10:17:53 IV patent on arrival in left wrist with 0.9% NaCl at O. 10:24:11 Right Abdomen was prepped with chlora-prep and draped in sterile fashion. 10:24:22 Vital chart was started 10:24:23 Baseline sample Acquired. 11:14:08 Alarms reviewed by R. N. 11:14:08 Sharps counted by scrub and verified by R.N. 11:19:12 Physician arrived 11:19:13 --------ALL STOP TIME OUT------ 11:19:16 Right abdomen site verified by team. 11:19:20 Fire Safety Assessment: A--An alcohol-based skin anteseptic being used preoperatively., C--Open oxygen or nitrous oxide is being used. 11:19:24 3a) 45-59 Moderately reduced kidney function. 11:19:28 Maximum allowable contrast dose (3.7 X eGFR X 0.75)133.2 ml. 11:19:33 Sedation plan: IV Moderate Sedation Medication:Versed, Fentanyl 11:19:59 Procedure started. 11:20:08 Local anesthetic to Abdominal area with Lidocaine 1% by Brendon Kimbrough MD.INITIAL ACCESS ONLY 11:21:35 Heparin Flush Bag (1000units/500ml NS) 1 bags added to field was administered by Brendon Kimbrough MD; used for procedure; Verbal order read back and verified. 11:21:46 Lidocaine 1% 20ml vial added to field was administered by Brendon Kimbrough MD; for local anesthetic; Verbal order read back and verified. 11:21:59 Versed 1 mg I.V. was administered by Robyn Jesus RN; for sedation; Verbal order read back and verified. 11:22:10 Fentanyl 50 mcg I.V. was administered by Robyn Jesus RN; for sedation ; Verbal order read back and verified. 11:24:41 BENTSON 145cm wire ([id number]) opened to sterile field. 11:25:48 GLIDE WIRE Angled Super Stiff 180cm ([id number]) opened to sterile field. 11:27:35 GLIDE CATHETER 5FR ANGLED 65cm (CG507) opened to sterile field. 11:28:54 AMPLATZ Super stiff 180cm wire ([id number]) opened to sterile field. 11:31:54 Sheath 8fr. [place] 10cm opened to sterile field. 11:32:21 Versed 1 mg I.V. was administered by Robyn Jesus RN; for sedation; Verbal order read back and verified. 11:32:33 Fentanyl 50 mcg I.V. was administered by Robyn Jesus RN; for sedation ; Verbal order read back and verified. 11:33:42 STOPCOCK 3-Way Large Bore ([id number]) opened to sterile field. 11:33:43 Abscession 10 FR drainage catheter ([id number]) opened to sterile field. 11:37:00 SUTURE ETHILON 2-0 BLK MONO FS opened to sterile field. 11:39:55 Procedure ended.(Physican Out) 11:40:13 Fluoroscopy time 05.10 minutes. 11:40:18 Flurop Dose total: 94 11:40:18 Fluoroscopy dose: 94 mGy 11:40:23 Contrast amount:Isovue 300 20ml. 11:40:44 OPSITE AND STATLOCK APPLIED TO SITE.SITE STABLE 11:40:48 Insertion/operative site no bleeding no hematoma. 11:47:31 Post Abdominal area:stable 11:47:36 Report given to Outpatients. 11:47:40 Patient transfered to Outpatients with Stretcher. 11:48:18 Vital chart was stopped Device Usage Item Name Manufacture Quantity Catalog Hospital Part Current Minima l Lot# / Number Charge Number Stock Stock Serial# Code Bag Decanter Microtek 1 [id number] 5 () Medical Inc. Sterile Cardinal 1 [id number] 5 Angiographic Health Pack Tegaderm 4 x 3M 1 [id number] 786960 914138 [id number] 5 4 (1626W) BENTSON [employer] 1 [id number] 530598 730604 5 145cm wire ([id number]) GLIDE WIRE Terumo 1 [id number] 814257 286840 5 Angled Super Stiff 180cm ([id number]) GLIDE Terumo 1 [id number] 088268 719446 5 CATHETER 5FR ANGLED 65cm (CG507) AMPLATZ [place] 1 [id number] 545904 342676 426107 5 [id number] Super stiff Scientific 180cm wire ([id number]) Sheath 8fr. Terumo 1 [id number] 371820 2994048 5 [place] 10cm STOPCOCK [facility] 1 [id number] 814302 0652 791165 5 3-Way Large Bore ([id number]) Abscession Angiodynamics 1 [id number] 017497 373314 461880 5 10 FR drainage catheter ([id number]) SUTURE Ethicon 1 [id number] 772472 105304 5 ETHILON 2-0 BLK MONO FS Signature Audit Dresher Stage Time Signature Unsigned Intra-Procedure 08/11/2019 Jordan 11:48:02 AM [facility] RT (R) (CV) [facility] [address] [place] [address]
[~2019-08-11 07:54] MED LIST changes: +BENADRYL25 MG PO; +Senokot TAB PO; +TYLENOL #4 W/CO1 TAB
[2019-08-11 08:18] LABS: BASOPHILS 0.4 % (0-2); EOSINOPHILS 10.8 % (0-7); HEMATOCRIT 33.2 % (42.0-54.0); HEMOGLOBIN 10.2 g/dL (13.5-17.5); IMMATURE GRANULOCYTES 0.1 % (0-5); LYMPHOCYTES 13.8 % (15-50); MCH 29.5 pg (26.0-34.0); MCHC 30.7 g/dL (31.0-37.0); MEAN PLATELET VOLUME 9.6 fL (7.4-10.4); MONOCYTES 6.7 % (2-11); NEUTROPHILS 68.2 % (40-80); PLATELET COUNT 239 10x3/uL (130-400); RBC 3.46 10x6/uL (4.20-6.10); RDW 15.4 % (11.5-14.5); WBC 7.6 10x3/uL (4.8-10.8)
[2019-08-11 08:20] LABS: APTT 39.2 SECONDS (22.8-39.4); INR 1.07 (0.85-1.17); PROTIME 13.8 SECONDS (11.6-15.0)
[2019-08-11 08:22] LABS: ANION GAP 9.4 mmol/L (8-16); CALCIUM 8.6 mg/dL (8.5-10.1); CARBON DIOXIDE 27.8 mmol/L (21.0-32.0); CREATININE - SERUM 1.5 mg/dL (0.6-1.3); POTASSIUM - SERUM 3.2 mmol/L (3.5-5.1)
[2019-08-11 09:01] VITALS: BP 148/69; Ht 175.3 cm; Wt 81.4 kg
[2019-08-11 12:59] LABS: ALBUMIN 2.5 g/dL (3.4-5.0); BILIRUBIN - TOTAL 2.41 mg/dL (0.2-1.3); PROTEIN - SERUM 6.6 g/dL (6.4-8.2)
== END 2019-08-11 12:50 | disposition home or self-care (01) ==
LOC: D.SP 07:54 → D.RAD 10:30 → D.SP 12:50
PROVIDERS: General Practice; ATTEND Radiology Diagnostic Radiology
DX: C25.9 Malignant neoplasm of pancreas, unspecified (principal); C78.7 Secondary malignant neoplasm of liver and intrahepatic bile duct

== ENCOUNTER → 2019-08-18 13:04 | Outpatient (CLI) | payer MEDICARE, OTHER ==
[2019-08-11 09:01] VITALS: BMI 26.5
== END | disposition home or self-care (01) ==
LOC: D.US 13:04
PROVIDERS: ATTEND Internal Medicine Medical Oncology
DX: R60.0 Localized edema (principal); C25.0 Malignant neoplasm of head of pancreas; C78.7 Secondary malignant neoplasm of liver and intrahepatic bile duct

== ENCOUNTER 2019-08-24 08:09 | Outpatient (CLI) | payer MEDICARE, OTHER ==
[~2019-08-24] VITALS: Ht 175.3 cm; Wt 81.4 kg
[2019-08-24] MEDS ORDERED: HYDROCODON-ACE1 EAC7 PO (08:43)
[2019-08-24] MEDS ORDERED: ALTACE10 MG PO (08:45)
[2019-08-24 08:53] VITALS: BP 149/74; Ht 175.3 cm; Wt 81.4 kg
== END 2019-08-24 12:35 | disposition home or self-care (01) ==
LOC: D.SP 08:09 → D.RAD 10:30 → D.SP 10:30
PROVIDERS: ATTEND General Practice
DX: C25.9 Malignant neoplasm of pancreas, unspecified (principal); C78.7 Secondary malignant neoplasm of liver and intrahepatic bile duct; E03.9 Hypothyroidism, unspecified; I10 Essential (primary) hypertension; J45.909 Unspecified asthma, uncomplicated; K21.9 Gastro-esophageal reflux disease without esophagitis; N17.9 Acute kidney failure, unspecified

== ENCOUNTER 2019-10-28 09:44 | Inpatient (IN) | payer MEDICARE, OTHER ==
[~2019-10-28] VITALS: Ht 175.3 cm; Wt 71.2 kg
[~2019-10-28 09:44] MED LIST changes: +HYDROCODON-ACE1 EAC7 PO
[2019-10-28] MEDS ORDERED: ULTRAM50 MG PO (10:05)
[2019-10-28] MEDS ORDERED: MEGACE40 MG PO (10:06)
[2019-10-28] MEDS ORDERED: ELIQUIS5 MG PO (10:07)
[2019-10-28] MEDS ORDERED: LASIX20 MG PO (10:07)
[2019-10-28 10:35] LABS: HEMATOCRIT 26.2 % (42.0-54.0); HEMOGLOBIN 8.1 g/dL (13.5-17.5); MCH 30.5 pg (26.0-34.0); MCHC 30.9 g/dL (31.0-37.0); MCV 98.5 fL (80.0-100.0); MEAN PLATELET VOLUME 9.5 fL (7.4-10.4); RBC 2.66 10x6/uL (4.20-6.10); RDW 20.2 % (11.5-14.5)
[2019-10-28 10:43] LABS: PLATELET COUNT 181 10x3/uL (130-400); WBC 1.6 10x3/uL (4.8-10.8)
[2019-10-28 10:45] LABS: CALC OSMOLALITY 289 mosm/kg (275-300); CALCIUM 7.2 mg/dL (8.5-10.1); CARBON DIOXIDE 25.1 mmol/L (21.0-32.0); CHLORIDE - SERUM 108 mmol/L (98-107); CREATININE - SERUM 1.5 mg/dL (0.6-1.3); GLUCOSE 179 mg/dL (74-106); POTASSIUM - SERUM 3.2 mmol/L (3.5-5.1); SODIUM 141 mmol/L (136-145); UREA NITROGEN 26 mg/dL (7-18); eGFR NON AFRICAN AMERICAN 48 mL/min (90-120)
[2019-10-28 10:54] LABS: ALBUMIN 1.9 g/dL (3.4-5.0); ALKALINE PHOSPHATASE 197 U/L (30-120); ALT (SGPT) 120 U/L (10-68); AMYLASE - SERUM 6 U/L (25-115); BILIRUBIN - TOTAL 1.11 mg/dL (0.2-1.3); PROTEIN - SERUM 4.8 g/dL (6.4-8.2)
[2019-10-28 11:01] LABS: LIPASE 27 U/L (73-393); TROPONIN-I < 0.017 ng/mL (0.000-0.060)
[2019-10-28 11:03] LABS: EOSINOPHILS 9 % (0-7); LYMPHOCYTES 22 % (15-50); MONOCYTES 6 % (2-11); NEUTROPHILS 63 % (40-80); PLATELET ESTIMATE NORMAL
[2019-10-28 11:05] LABS: POLYCHROMASIA OCC; ROULEAUX OCC
[2019-10-28 11:06] LABS: ELLIPTOCYTES OCC
[2019-10-28 11:30] VITALS: BP 141/68
[2019-10-28 12:49] LABS: BILIRUBIN NEGATIVE (NEGATIVE); GLUCOSE 250 mg/dL (NEGATIVE); KETONE NEGATIVE (NEGATIVE); NITRITE NEGATIVE (NEGATIVE); UROBILINOGEN NORMAL (NORMAL)
[2019-10-28 13:00] VITALS: BP 139/70
--- NOTE | 2019-10-28 13:38 | NUR ---
REPORT CALLED TO JAMES VILLATORO AT THIS TIME.
--- NOTE | 2019-10-28 14:15 | NUR ---
ARRIVES TO UNIT FROM ER PER W/C, PORT ACCESSED, NS INFUSING, DR GRACE HERE TO SEE PT
[2019-10-28] MEDS ORDERED: PHENERGAN25 M1 PO (14:50)
[2019-10-28 15:02] VITALS: BP 155/85
[2019-10-28 18:04] VITALS: BP 146/71
--- NOTE | 2019-10-28 19:00 | NUR ---
BEDSIDE REPORT RECEIVED AND CARE OF PT ASSUMED. PT LYING IN LOW ZENDEJAS'S POSITION VISITING WITH SPOUSE...REQUESTING PAIN MED. EXPLAINED THAT HIS PRN MORPHINE COULD NOT BE GIVEN AGAIN TILL 2329, BUT HE HAD SCHEDULED MS CONTIN AT BEDTIME.
--- NOTE | 2019-10-28 19:57 | NUR ---
GAVE MAG 1 MG AND 2 MG IVPB PER THE ELECTROLYTE PROTOCOL...WILL RUN CONSECUTIVELY....PER THE ELECTROLYTE PROTOCOL.
--- NOTE | 2019-10-28 20:32 | NUR ---
HS MEDICATIONS GIVEN. WILL CONTINUE TO MONITOR FOR NEEDS.
[2019-10-28 20:58] VITALS: BP 137/66
--- NOTE | 2019-10-28 23:36 | NUR ---
GAVE MORPHINE 4 MG AND ZOFRAN 4 MG IVP PER REQUEST FOR PAIN AND NAUSEA, PER PRN ORDERS.
[2019-10-29 00:44] VITALS: BP 127/74
--- NOTE | 2019-10-29 05:30 | NUR ---
GAVE ZOFRAN 4 MG AND MORPHINE 4 MG IVP PER REQUEST FOR PAIN AND NAUSEA, PER PRN ORDERS.
--- NOTE | 2019-10-29 05:39 | NUR ---
ROSI BLOOD FROM IP FOR AM LABS..DELIVERED TO [facility] ON FLOOR.
[2019-10-29 05:48] LABS: BASOPHILS 0.9 % (0-2); EOSINOPHILS 3.6 % (0-7); HEMATOCRIT 22.7 % (42.0-54.0); IMMATURE GRANULOCYTES 1.8 % (0-5); LYMPHOCYTES 36.9 % (15-50); MCH 30.7 pg (26.0-34.0); MCHC 31.3 g/dL (31.0-37.0); MCV 98.3 fL (80.0-100.0); MEAN PLATELET VOLUME 8.8 fL (7.4-10.4); NEUTROPHILS 47.8 % (40-80); PLATELET COUNT 159 10x3/uL (130-400); RBC 2.31 10x6/uL (4.20-6.10); RDW 20.2 % (11.5-14.5)
[2019-10-29 05:59] LABS: HEMOGLOBIN 7.1 g/dL (13.5-17.5); WBC 1.1 10x3/uL (4.8-10.8)
[2019-10-29 06:14] LABS: ALBUMIN 1.5 g/dL (3.4-5.0); BILIRUBIN - TOTAL 0.57 mg/dL (0.2-1.3); CREATININE - SERUM 1.3 mg/dL (0.6-1.3); PROTEIN - SERUM 4.4 g/dL (6.4-8.2)
[2019-10-29 06:19] LABS: ANION GAP 11.8 mmol/L (8-16); POTASSIUM - SERUM 2.8 mmol/L (3.5-5.1)
--- NOTE | 2019-10-29 06:24 | NUR ---
PAGED NGHIA OVIEDO RE: CRITICAL LABS...TOLD TO CALL ONCOLOGY. PAGED DR KEE AND RECEIVED ORDER TO TYPE AND CROSS AND GIVE 1 UNIT PRBC'S NOW.
[2019-10-29 08:43] VITALS: BP 138/69
--- NOTE | 2019-10-29 08:49 | NUR ---
RESTING IN BED, NO DISTRESS NOTED, C/O NAUSEA AND EMESIS X1, IV POTASSIUM INFUSING, CONT TO MONITOR PAIN AND LABS
--- NOTE | 2019-10-29 11:14 | NUR ---
1ST UNIT OF BLOOD STARTED, CONT TO MONITOR PT FOR S/S OF REACTION
[2019-10-29 13:17] VITALS: BP 117/80
--- NOTE | 2019-10-29 16:00 | NUR ---
INCONT LOOSE STOOL OVER BATHROOM, AREA CLEANED BY HOUSEKEEPING, PERICARE GIVEN TO PT, CONT TO MONITOR
--- NOTE | 2019-10-29 20:50 | NUR ---
PATIENT AGITATED WANTING PAIN MED. GIVEN PER ORDERS. COMPLAINING ABOUT TELEMENTRY BOX AND WIRES. STATES DONT HAVE HEART PROBLEMS, IM NOT WEARING THIS ANYMORE. TELEMENTRY REMOVED. RETURNED TO CHIEF CREATIVE OFFICER. AT BEDSIDE
[2019-10-29 22:38] VITALS: BP 135/67
[2019-10-30 03:55] VITALS: BP 131/61
--- NOTE | 2019-10-30 04:00 | NUR ---
I have reviewed this patient and I concur with the Shift Assessment completed by the Licensed Practical Nurse today this shift.
[2019-10-30 07:25] LABS: MCH 30.9 pg (26.0-34.0); MCHC 32.1 g/dL (31.0-37.0); MEAN PLATELET VOLUME 9.5 fL (7.4-10.4); PLATELET COUNT 171 10x3/uL (130-400); RDW 20.4 % (11.5-14.5)
[2019-10-30 07:32] LABS: RBC 2.85 10x6/uL (4.20-6.10); WBC 2.3 10x3/uL (4.8-10.8)
[2019-10-30 07:33] LABS: HEMATOCRIT 27.4 % (42.0-54.0); HEMOGLOBIN 8.8 g/dL (13.5-17.5); MCV 96.1 fL (80.0-100.0)
[2019-10-30 07:47] LABS: ALBUMIN 1.6 g/dL (3.4-5.0); ANION GAP 13.1 mmol/L (8-16); BILIRUBIN - TOTAL 0.62 mg/dL (0.2-1.3); CALCIUM 7.3 mg/dL (8.5-10.1); CARBON DIOXIDE 19.2 mmol/L (21.0-32.0); POTASSIUM - SERUM 3.3 mmol/L (3.5-5.1); PROTEIN - SERUM 4.9 g/dL (6.4-8.2)
[2019-10-30 07:48] LABS: CREATININE - SERUM 2.1 mg/dL (0.6-1.3)
[2019-10-30 09:10] VITALS: BP 121/64
--- NOTE | 2019-10-30 11:06 | NUR ---
PT C/O LOOSE STOOLS, REPLACING K, IV FLUIDS CONT PER PORT, IN ROOM, TAKING LITTLE PO
[2019-10-30 11:42] LABS: EOSINOPHILS 2 % (0-7); LYMPHOCYTES 38 % (15-50); MONOCYTES 14 % (2-11); NEUTROPHILS 34 % (40-80); PLATELET ESTIMATE NORMAL
[2019-10-30 11:54] VITALS: BP 109/57
[2019-10-30 14:24] VITALS: BMI 23.2
[2019-10-30 16:22] VITALS: BP 97/57
[2019-10-30 20:00] VITALS: BP 92/41
--- NOTE | 2019-10-30 20:00 | NUR ---
PT LYING IN BED RESTING WITH EYES CLOSED. AOX4. LEFT CHEST PORT INFUSING NS @ 75. BP LOW, 80/40S. HELD MS CONTIN. PT STATES PAIN 0/10 AT THIS TIME. WILL CTM
[2019-10-31] VITALS: BP 114/53
[2019-10-31 04:00] VITALS: BP 94/48
[2019-10-31 07:09] LABS: BASOPHILS 0.7 % (0-2); EOSINOPHILS 7.2 % (0-7); HEMATOCRIT 25.1 % (42.0-54.0); HEMOGLOBIN 7.9 g/dL (13.5-17.5); IMMATURE GRANULOCYTES 0.3 % (0-5); LYMPHOCYTES 32.2 % (15-50); MCH 30.5 pg (26.0-34.0); MCHC 31.5 g/dL (31.0-37.0); MCV 96.9 fL (80.0-100.0); MEAN PLATELET VOLUME 9.7 fL (7.4-10.4); MONOCYTES 15.3 % (2-11); NEUTROPHILS 44.3 % (40-80); RBC 2.59 10x6/uL (4.20-6.10); RDW 20.2 % (11.5-14.5)
[2019-10-31 07:14] LABS: ALBUMIN 1.5 g/dL (3.4-5.0); BILIRUBIN - TOTAL 0.51 mg/dL (0.2-1.3); CALCIUM 7.7 mg/dL (8.5-10.1); PROTEIN - SERUM 4.5 g/dL (6.4-8.2)
--- NOTE | 2019-10-31 07:18 | NUR ---
assume pt care, pt lying in bed asleep, even rise and fall of chest, no s/sx of distress, lt port ns at 75, bed in lowest position, cl in reach continue with plan of care
[2019-10-31 07:24] LABS: PLATELET COUNT 126 10x3/uL (130-400); WBC 3.1 10x3/uL (4.8-10.8)
--- NOTE | 2019-10-31 07:37 | NUR ---
PER LAB WORK PT WBC IS 3.1. CONTINUE WITH PLAN OF CARE
[2019-10-31 09:17] VITALS: BP 85/40
--- NOTE | 2019-10-31 09:58 | NUR ---
PT LUING IN BED ASLEEP, NO S/SX OF DISTRESS, CL IN REACH BED IN LOWEST POSITION, ADMINISTERED SCHEDULED MEDS, CONTINUE WITH PLAN OF CARE
--- NOTE | 2019-10-31 10:56 | NUR ---
PT SITTING ON TOILET YELLING OUT FOR HELP, CAME IN AND PT HAD ACCIDENT ONFLOOR BEFORE MAKING IT TO RESTROOM. PT STATES VERY DIZZY AND TIRED, ASSISTED PT BACK TO BED PT STATED CAN NOT BREATHE, PER PULSE OX PT O2 IS AT 98% PT STILL WANTED NC. ADMINISTERED 2L NC FOR PT COMFORT. PT BP IS 80/42. BP MEDICATIONS HELD THIS MORNING. PT WAS GIVEN PAIN MEDICATION WILL CONTINUE WITH PLAN OF CARE AND PT ON VS MACHINE TO MONITOR PT BP
--- NOTE | 2019-10-31 11:09 | NUR ---
PT K+ IS 3.0 WILL REPLETE PER PROTOCOL
--- NOTE | 2019-10-31 12:01 | NUR ---
PT SPEECH IS SLURRED PT SPOUSE CONCERNED HE MAY HAVE HAD A STROKE PAGED CONI
--- NOTE | 2019-10-31 12:54 | NUR ---
PT SPOUSE STATED THAT DR PORTILLO TOLD PT HE CAN HAVE A REG DIET AND SEE HOW HE DOES WITH IT, DIET HAS NOT BEEN CHANGED, RELAYED MESSAGE TO CONI OVIEDO AND WAS ADVISED IF DR PORTILLO STATED TO CHANGE THEN CHANGE, ADVANCING PT TO REG DIET TO SEE HOW HE DOES. CONTINUE WITH PLAN OF CARE
[2019-10-31 14:34] VITALS: BP 116/38
--- NOTE | 2019-10-31 17:50 | NUR ---
I have reviewed this patient and I concur with the Shift Assessment completed by the Licensed Practical Nurse today this shift.
[2019-10-31 17:56] VITALS: BP 86/44
[2019-10-31 20:00] VITALS: BP 101/45
--- NOTE | 2019-10-31 20:00 | NUR ---
PT SITTING UP IN BED WITHOUT DISTRESS, ORIENTED X3. AT BEDSIDE. REQUESTING SOMETHING FOR DIARRHEA AND PAIN. DOES NOT WANT MS CONTIN. GAVE IMODIUM AND TYLENOL #3 WITH HS MEDS. LEFT CHEST PORT INFUSING NS @ 75, NO REDNESS OR SWELLING AT SITE. DRESSING CDI. DENIES OTHER NEEDS AT THIS TIME. CL IN REACH, WILL CTM
--- NOTE | 2019-10-31 20:30 | NUR ---
PT TAKEN BY W/C FOR CT OF HEAD AT THIS TIME
--- NOTE | 2019-10-31 23:00 | NUR ---
PT LYING IN BED SLEEPING WITHOUT DISTRESS, WILL CTM
--- NOTE | 2019-11-01 02:00 | NUR ---
PT CAME OUT TO DESK ASKING TO SEE THIS NURSE. WENT TO PT ROOM AND HE WAS SITTING ON SIDE OF BED. HE STATES HIS STOMACH IS UPSET AND HE NEEDS THIS NURSE TO FIX IT. THIS NURSE ASKED IF IT WAS NAUSEA OR PAIN AND PT KEPT REPEATING IT WAS "UPSET" AND THAT HE KEPT GOING BACK AND FORTH TO BATHROOM. HE ASKED "IS IT THIS THING IN MY STOMACH" THIS NURSE ASKED WHAT THING, PT THEN STATED "THIS DRAIN IN MY STOMACH RIGHT HERE" PT WAS HOLDING HIS IV LINE. TOLD PT HE DID NOT HAVE DRAIN IN HIS STOMACH. GOT UPSET AND YELLED FOR THIS NURSE TO JUST DO SOMETHING. THEN STATED PT HAD NOT HAD DIARRHEA FOR FOUR HOURS AFTER I GAVE IMODIUM AND THAT IT REALLY HELPED. STATED I WOULD GO GET HIM MORE IMODIUM AND HE STATED TO "DO WHATEVER YOU WANT JUST HELP ME" I WAS LEAVING ROOM STATED HE NEEDED PAIN MEDICINE TOO. ASKED PT TO RATE HIS PAIN AND HE STATES "ITS GETTING THERE" THIS NURSE ASKED IF HE WANTED HIS TYLENOL #3 AND STATED "GET ME WHATEVER JUST HELP ME" THIS NURSE GAVE PT TYLNOL, IMODIUM AND PHENERGAN. WILL CTM
[2019-11-01 04:00] VITALS: BP 109/56
--- NOTE | 2019-11-01 04:30 | NUR ---
CALLED TO PT ROOM, STATED PT IV LEAKING. PT HAS SMALL WET SPOT ON SHIRT. REMOVED SHIRT AND LEFT CHEST PORT SITE WAS SWOLLEN AND SLIGHTLY PINK, DRESSING WAS LIFTED ON ONE SIDE AND ALCAZAR NEEDLE LOOK TO BE PULLED OUT SLIGHTLY. STOPPED FLUIDS AND REMOVED NEEDLE. PORT FELT LIKE IT WAS FLIPPED UNDER SKIN. HAD SECOND NURSE ASSESS SITE, WILL NOT REACCESS AT THIS TIME UNTIL DR SEES THIS AM
[2019-11-01 07:44] LABS: ALBUMIN 1.6 g/dL (3.4-5.0); BILIRUBIN - TOTAL 0.39 mg/dL (0.2-1.3); CALCIUM 7.8 mg/dL (8.5-10.1); PROTEIN - SERUM 4.5 g/dL (6.4-8.2)
[2019-11-01 07:47] LABS: HEMATOCRIT 26.5 % (42.0-54.0); HEMOGLOBIN 8.4 g/dL (13.5-17.5); MCH 30.9 pg (26.0-34.0); MCHC 31.7 g/dL (31.0-37.0); MCV 97.4 fL (80.0-100.0); MEAN PLATELET VOLUME 10.3 fL (7.4-10.4); PLATELET COUNT 125 10x3/uL (130-400); RBC 2.72 10x6/uL (4.20-6.10); RDW 20.4 % (11.5-14.5); WBC 11.7 10x3/uL (4.8-10.8)
[2019-11-01 08:02] LABS: ANION GAP 21.2 mmol/L (8-16); CARBON DIOXIDE 12.4 mmol/L (21.0-32.0); CREATININE - SERUM 5.4 mg/dL (0.6-1.3)
[2019-11-01 08:04] LABS: POTASSIUM - SERUM 2.6 mmol/L (3.5-5.1)
[2019-11-01 08:34] LABS: EOSINOPHILS 5 % (0-7); LYMPHOCYTES 17 % (15-50); MONOCYTES 12 % (2-11); NEUTROPHILS 32 % (40-80); PLATELET ESTIMATE DECREASED
--- NOTE | 2019-11-01 09:00 | NUR ---
ASSESSMENT PER FLOW SHEET. PATIENT IS WITHOUT DISTRESS.LEFT PORTNEEDLE OUT SINCE LAST NIGHT WILL ATTEMPT RE SITE. ISOLATION MAINTAINED
[2019-11-01 10:09] VITALS: BP 96/55
--- NOTE | 2019-11-01 11:53 | NUR ---
PORT NEEDLE PLACED,CONFERENCE MANAGER 20G,3/4 INCH.GOOD BLOOD RETURN CONFIRMED
[2019-11-01 13:36] VITALS: BP 86/39
--- NOTE | 2019-11-01 14:52 | NUR ---
Nutrition follow-up Pts diet changed to regular as tolerated with po intake ~25% of mealls Pt has been sick to stomach. Renal function is getting worse per labs Wt: 156# Will offer nutritional supplements. RDN following.
--- NOTE | 2019-11-01 15:04 | NUR ---
AT BEDSIDE. PATIENT IS WITHOUT NEEDS.CALL LIGHT IN REACH
[2019-11-01 18:23] VITALS: Ht 175.3 cm; Wt 71.2 kg
[2019-11-01 18:41] VITALS: BP 97/57
[2019-11-01 20:00] VITALS: BP 103/47
--- NOTE | 2019-11-01 20:30 | NUR ---
PT LYING IN BED RESTING WITH EYES CLOSED. LEFT CHEST PORT SL. ORDER RECIEVED FOR BLADDER SCAN AND CRAIG IF >150ML. DAY SHIFT ALREADY ATTEMPTED CRAIG X2. RETRIEVED 14F COUDET FROM ER. CRAIG PLACED WITH SOME RESISTANCE BUT ABLE TO GET 50ML URINE IMMEDIATELY. INFLATED BULB WITH 10ML. STAT LOCK PLACED TO RIGHT THIGH. PT TOLERATED WELL. OBTAINED URINE SAMPLE.
[2019-11-01 22:43] LABS: CREATININE - URINE 392.5 mg/dL (30-125); PRO/CRE RATIO URINE 0.4 mg/g; PROTEIN - URINE 163.9 mg/dL (0.0-11.9)
[2019-11-01 22:50] LABS: BACTERIA FEW /hpf (NEGATIVE); BILIRUBIN NEGATIVE (NEGATIVE); GLUCOSE NEGATIVE (NEGATIVE); KETONE NEGATIVE (NEGATIVE); NITRITE NEGATIVE (NEGATIVE); UROBILINOGEN NORMAL (NORMAL); WHITE CELLS - URINE 0-5 /hpf (NEGATIVE)
--- NOTE | 2019-11-01 23:30 | NUR ---
PT LYING IN BED RESTING WITHOUT DISTRESS, AT BEDSIDE. WILL CTM
[2019-11-01 23:37] LABS: ERYTHROCYTE SEDIMENTATION RATE 57 mm/hr (0-20)
[2019-11-02] VITALS (23 sets, daily range): BP systolic 60–113; BP diastolic 38–57
--- NOTE | 2019-11-02 03:00 | NUR ---
PT O2 DROPPED TO 67 WHILE AMBULATING TO BATHROOM. BECAME SOB. HELPED PT BACK TO BED AND AFTER A COUPLE MINUTES PT O2 CAME TO 100% ON ROOM AIR. CALLED AND NOTIFIED THI LEUNG APN. ALSO NOTIFIED OF ONLY 60ML OUTPUT ON THIS SHIFT AT THIS TIME. NO NEW ORDERS. WILL CTM
[2019-11-02 05:47] LABS: HEMATOCRIT 26.8 % (42.0-54.0); HEMOGLOBIN 8.5 g/dL (13.5-17.5); LYMPHOCYTES 15.9 % (15-50); MCH 31.3 pg (26.0-34.0); MCHC 31.7 g/dL (31.0-37.0); MCV 98.5 fL (80.0-100.0); MEAN PLATELET VOLUME 9.9 fL (7.4-10.4); NEUTROPHILS 70.9 % (40-80); PLATELET COUNT 120 10x3/uL (130-400); RBC 2.72 10x6/uL (4.20-6.10); WBC 16.1 10x3/uL (4.8-10.8)
[2019-11-02 06:02] LABS: ALBUMIN 1.8 g/dL (3.4-5.0); ANION GAP 20.1 mmol/L (8-16); BILIRUBIN - TOTAL 0.33 mg/dL (0.2-1.3); CALCIUM 8.5 mg/dL (8.5-10.1); CARBON DIOXIDE 11.6 mmol/L (21.0-32.0); PROTEIN - SERUM 4.7 g/dL (6.4-8.2)
[2019-11-02 06:07] LABS: CREATININE - SERUM 7.5 mg/dL (0.6-1.3)
[2019-11-02 06:08] LABS: POTASSIUM - SERUM 2.7 mmol/L (3.5-5.1)
--- NOTE | 2019-11-02 06:30 | NUR ---
PT BP 70/30S WITH VITALS MACHINE. NOTIFED BY NURSES AIDS. MANUAL BP CHECK WAS 60/38. PT PLACED WITH HEAD 20 DEGREES, FEET UP, AND TOLD NOT GET UP AT THIS TIME. THI LEUNG ORDERED LEVOPHED DRIP, TRANSFER TO ICU, AND CALL NEPHROLOGY WITH LAB RESULTS AND NOTIFY OF PT BP. CALLED HOUSE SUP FOR ICU BED, PAGED NEPHROLOGY. ETIENNE NEWBERRY CALLED AND ORDERED 500ML NS BOLUS. DR KENNEDY WAS ON FLOOR, UPDATED HER ON PT, ORDERS RECIEVED FOR 50GM OF ALBUMIN NOW AND AGREED WITH NS BOLUS AND LEVOPHED. ALBUMIN AND NS BOLUS GIVEN. PT BP HOLDING AT 80/40S AT THIS TIME. PT IS AOX4 AND ANSWERING ALL QUESTIONS. AT BEDSIDE, SHE CALLED AND UPDATED PT DAUGHTER. WILL CTM
--- NOTE | 2019-11-02 07:20 | NUR ---
ASSESSMENT COMPLETED PER FLOW SHEET. WAITING ON BED FOR TRANSFER TO ICU. CALL LIGHT IN REACH
--- NOTE | 2019-11-02 07:54 | NUR ---
REPORT TO LENNIE IN ICU.
--- NOTE | 2019-11-02 08:25 | NUR ---
TO ICU VIA BED TO ROOM 2311.
--- NOTE | 2019-11-02 10:21 | NUR ---
DR. YE HERE IN TO SEE PATIENT. NEW ORDER TO HOLD
--- NOTE | 2019-11-02 14:19 | NUR ---
CALLED PHARMACY FOR HCO3 GTT THEY WILL BRING UP TO UNIT.
--- NOTE | 2019-11-02 14:50 | NUR ---
DR. KHAN IN TO SEE PATIENT.
--- NOTE | 2019-11-02 15:09 | NUR ---
DR. KHAN AND I HAVE SPOKE WITH ABOUT PATIENT CONDITIONA AT THIS TIME.
[2019-11-02 15:19] LABS: HEMATOCRIT 27.6 % (42.0-54.0); HEMOGLOBIN 8.7 g/dL (13.5-17.5)
[2019-11-02 15:22] LABS: ANION GAP 21.6 mmol/L (8-16); CALCIUM 8.1 mg/dL (8.5-10.1); CARBON DIOXIDE 10.5 mmol/L (21.0-32.0); CREATININE - SERUM 7.1 mg/dL (0.6-1.3); POTASSIUM - SERUM 3.1 mmol/L (3.5-5.1)
--- NOTE | 2019-11-02 19:10 | NUR ---
REPORT RECIEVED, SHIFT ASSESSMENT COMPLETE, PT ALERT LYING IN BED, ON 2L NC WITH 97% O2 SAT. ALL PPP, VSS, CALL LIGHT IN REACH
[2019-11-03] VITALS (12 sets, daily range): BP systolic 90–141; BP diastolic 47–83
[2019-11-03 06:11] LABS: HEMATOCRIT 26.2 % (42.0-54.0); HEMOGLOBIN 8.3 g/dL (13.5-17.5); MCH 31.1 pg (26.0-34.0); MCHC 31.7 g/dL (31.0-37.0); MCV 98.1 fL (80.0-100.0); MEAN PLATELET VOLUME 10.9 fL (7.4-10.4); PLATELET COUNT 102 10x3/uL (130-400); RBC 2.67 10x6/uL (4.20-6.10); RDW 20.9 % (11.5-14.5); WBC 15.3 10x3/uL (4.8-10.8)
[2019-11-03 06:48] LABS: ANION GAP 18.1 mmol/L (8-16); BILIRUBIN - TOTAL 0.36 mg/dL (0.2-1.3); CALCIUM 8.1 mg/dL (8.5-10.1); CARBON DIOXIDE 13.1 mmol/L (21.0-32.0); CREATININE - SERUM 5.7 mg/dL (0.6-1.3); POTASSIUM - SERUM 3.2 mmol/L (3.5-5.1); PROTEIN - SERUM 4.8 g/dL (6.4-8.2)
[2019-11-03 06:51] LABS: EOSINOPHILS 2 % (0-7); LYMPHOCYTES 16 % (15-50); NEUTROPHILS 80 % (40-80); PLATELET ESTIMATE NORMAL
--- NOTE | 2019-11-03 10:15 | NUR ---
NUTRITION F/U PT TOLERATED ~50% OF BREAKFAST THIS AM. NOTE POSSIBLE TRANSFER TO FLOOR. WILL CONTINUE TO PROVIDE REG DIET, HONOR FOOD PREFERENCES. RD FOLLOWING
--- NOTE | 2019-11-03 10:30 | NUR ---
PATIENT IS STABLE AND VSS. PATIENT DENIES ANY NEEDS OR PAIN. ORDER RECEVED FOR TRANSFER TO ROOM 232. CALLED REPORT TO IRVING YEUNG. CALLED PATIDIONS YIMI AND NOTIFIED HER OF TRANSFER. VERBALIZED UNDERSTANDING.
--- NOTE | 2019-11-03 10:54 | NUR ---
PATIENT RECEIVED TO ROOM 2232.
--- NOTE | 2019-11-03 11:01 | NUR ---
CALLED PHARMACY FOR PATIENT'S IV FLUIDS.
--- NOTE | 2019-11-03 11:26 | NUR ---
PATIENT ASSISTED TO CALL IN ROOM PER REQUEST.
--- NOTE | 2019-11-03 12:36 | NUR ---
RESTING IN BED. AT BEDSIDE. DENIES NEEDS. WILL CONTINUE TO MONITOR.
--- NOTE | 2019-11-03 12:37 | NUR ---
PATIENT SLEEPING. WILL CONTINUE TO MONITOR.
--- NOTE | 2019-11-03 13:49 | NUR ---
PATIENT TAKEN FOR LUMBAR PUNCTURE. EKG ON CHART.
[2019-11-03 15:12] LABS: SPE - A/G RATIO 0.9 (0.7-1.7); SPE - ALBUMIN 2.2 g/dL (2.9-4.4); SPE - ALPHA-1 GLOBULIN 0.4 g/dL (0.0-0.4); SPE - ALPHA-2 GLOBULIN 0.8 g/dL (0.4-1.0); SPE - BETA GLOBULIN 0.6 g/dL (0.7-1.3); SPE - GAMMA GLOBULIN 0.7 g/dL (0.4-1.8); SPE - M-SPIKE 0.1 g/dL (Not Observed); SPE - TOTAL PROTEIN 4.7 g/dL (6.0-8.5); UPE RAND - ALBUMIN 30.6 % (()); UPE RAND - ALPHA 1 GLOBULIN 2.8 % (()); UPE RAND - BETA GLOBULIN 24.4 % (()); UPE RAND - GAMMA GLOBULIN 30.2 % (())
--- NOTE | 2019-11-03 15:12 | MORECARE ---
CASE MANAGEMENT DISCHARGE SUMMARY PATIENT: RYAN JUDD UNIT: [id number] ADM DATE: 10/28/19 AGE: 74 : 43 SEX: M ROOM/BED: D.2232 AUTHOR: PEARL AL PHYSICIAN: REFERRING PHYSICIAN: JACE ANTHONY MD DATE OF SERVICE: 11/03/19 Discharge Plan Patient Name: RYAN JUDD Facility: [facility]:[place] : 1945 Planned Disposition: Anticipated Discharge Date: Discharge Date: Expected LOS: Initial Reviewer: [email or web address] Initial Review Date: 11/03/2019 Generated: 11/03/19 4:11 pm Patient Name: RYAN JUDD Page [phone] at 1512 All edits/amendments must be made on the electronic document DICTATION DATE: 11/03/19 151 RAG CUTTING MACHINE FEEDER: JOJO 11/03/19 1512 RPT#: [id number] DC DATE: STATUS: ADM IN [facility] [address] [place] [address] END OF REPORT
[2019-11-04 05:46] LABS: BASOPHILS 1.1 % (0-2); EOSINOPHILS 2.4 % (0-7); HEMATOCRIT 23.9 % (42.0-54.0); HEMOGLOBIN 7.6 g/dL (13.5-17.5); IMMATURE GRANULOCYTES 18.1 % (0-5); LYMPHOCYTES 13.3 % (15-50); MCH 31.3 pg (26.0-34.0); MCHC 31.8 g/dL (31.0-37.0); MCV 98.4 fL (80.0-100.0); MEAN PLATELET VOLUME 10.1 fL (7.4-10.4); MONOCYTES 9.2 % (2-11); NEUTROPHILS 55.9 % (40-80); PLATELET COUNT 78 10x3/uL (130-400); RBC 2.43 10x6/uL (4.20-6.10); RDW 21.1 % (11.5-14.5); WBC 10.6 10x3/uL (4.8-10.8)
[2019-11-04 06:05] LABS: ALBUMIN 1.7 g/dL (3.4-5.0); BILIRUBIN - TOTAL 0.41 mg/dL (0.2-1.3); CALCIUM 7.4 mg/dL (8.5-10.1); POTASSIUM - SERUM 3.1 mmol/L (3.5-5.1); PROTEIN - SERUM 4.2 g/dL (6.4-8.2)
[2019-11-04 06:08] LABS: CREATININE - SERUM 3.6 mg/dL (0.6-1.3)
[2019-11-04 06:10] LABS: ANION GAP 13.5 mmol/L (8-16); CARBON DIOXIDE 19.6 mmol/L (21.0-32.0)
--- NOTE | 2019-11-04 08:31 | NUR ---
PT SUPINE IN BED WITH EYES CLOSED, BREATHING EVEN AND NON LABORED, NO S/S OF DISTRESS NOTED AT THIS TIME, FAMILY AT BEDSIDE. AROUSES EASILY TO VOICE. ADMINISTERED MEDICATION, NO DIFFICULTIES. ASSESSMENT PER FORMED AT THIS TIME. DENIES ANY NEEDS. BED IN LOWEST POSITION, BED RAILS X2, CALL LIGHT WITHIN REACH. WILL CONTINUE TO MONITOR.
[2019-11-04 10:10] VITALS: BP 124/67
--- NOTE | 2019-11-04 11:06 | NUR ---
HUNG IV ABX, TOLERATING WELL. RESTING COMFORTABLY IN BED. DENIES ANY NEEDS. WILL CONTINUE TO MONITOR.
[2019-11-04 13:25] VITALS: BP 137/73
--- NOTE | 2019-11-04 13:56 | NUR ---
I have reviewed this patient and I concur with the Shift Assessment completed by the Licensed Practical Nurse today this shift.
--- NOTE | 2019-11-04 14:33 | NUR ---
HUNG NEW BAG OF FLUIDS PER CHANGE IN ORDER. RESTING COMFORTABLY IN BED, FAMILY AT BEDSIDE. DENIES ANY NEEDS. WILL CONTINUE TO MONITOR.
--- NOTE | 2019-11-04 16:51 | NUR ---
GAVE MEDICATION AND STARTED IV IRON. RESTING COMFORTABLY IN BED. DENIES ANY NEEDS. BED IN LOWEST POSITION, BED RAILS X2, CALL LIGHT WITHIN REACH, RAJEEV ALARM ON AND FUNCTIONAL. WILL CONTINUE TO MONITOR.
[2019-11-04 17:02] VITALS: BP 116/66
[2019-11-04 21:00] VITALS: BP 163/73
[2019-11-05] VITALS (8 sets, daily range): BP systolic 127–152; BP diastolic 67–78
[2019-11-05 10:09] LABS: BASOPHILS 0.9 % (0-2); EOSINOPHILS 2.9 % (0-7); HEMATOCRIT 33.2 % (42.0-54.0); HEMOGLOBIN 10.9 g/dL (13.5-17.5); LYMPHOCYTES 15.3 % (15-50); MCH 32.2 pg (26.0-34.0); MCHC 32.8 g/dL (31.0-37.0); MCV 98.2 fL (80.0-100.0); MEAN PLATELET VOLUME 10.2 fL (7.4-10.4); MONOCYTES 10.6 % (2-11); NEUTROPHILS 57.3 % (40-80); PLATELET COUNT 72 10x3/uL (130-400); RBC 3.38 10x6/uL (4.20-6.10); RDW 20.6 % (11.5-14.5); WBC 10.7 10x3/uL (4.8-10.8)
[2019-11-05 10:20] LABS: ALBUMIN 1.9 g/dL (3.4-5.0); ANION GAP 12.4 mmol/L (8-16); BILIRUBIN - TOTAL 0.75 mg/dL (0.2-1.3); CALCIUM 7.8 mg/dL (8.5-10.1); POTASSIUM - SERUM 3.4 mmol/L (3.5-5.1); PROTEIN - SERUM 4.7 g/dL (6.4-8.2)
[2019-11-05 10:24] LABS: CREATININE - SERUM 2.3 mg/dL (0.6-1.3)
[2019-11-05 10:29] LABS: PLATELET ESTIMATE DECREASED
[2019-11-06] VITALS: BP 136/69
--- NOTE | 2019-11-06 02:00 | NUR ---
ASSISTED PT TO WALK TO TO TOILET. MOVED IV POLE AND CRAIG TO RIGHT SIDE OF BED TO MAKE IT EASIER TO GET TO. PT HAD LARGE SOFT BM. PT C/O COCCYX HURTING. APPLIED BUTT PASTE AND APPLIED NEW MEPILEX DRESSING. GAVE PT TYLENOL W/CODIENE FOR PAIN. NO OTHER NEEDS. WILL REASSESS AND CONTINUE TO MONITOR.
[2019-11-06 04:00] VITALS: BP 120/68
[2019-11-06 07:44] LABS: BASOPHILS 0.9 % (0-2); EOSINOPHILS 3.3 % (0-7); HEMATOCRIT 30.4 % (42.0-54.0); HEMOGLOBIN 9.7 g/dL (13.5-17.5); IMMATURE GRANULOCYTES 7.1 % (0-5); LYMPHOCYTES 19.5 % (15-50); MCH 31.5 pg (26.0-34.0); MCHC 31.9 g/dL (31.0-37.0); MCV 98.7 fL (80.0-100.0); MEAN PLATELET VOLUME 12.7 fL (7.4-10.4); MONOCYTES 10.2 % (2-11); PLATELET COUNT 82 10x3/uL (130-400); RBC 3.08 10x6/uL (4.20-6.10); RDW 21.1 % (11.5-14.5)
[2019-11-06 07:45] LABS: ALBUMIN 1.6 g/dL (3.4-5.0); ANION GAP 10.7 mmol/L (8-16); BILIRUBIN - TOTAL 0.6 mg/dL (0.2-1.3); CALCIUM 7.5 mg/dL (8.5-10.1); CARBON DIOXIDE 19.7 mmol/L (21.0-32.0); CREATININE - SERUM 1.9 mg/dL (0.6-1.3); MAGNESIUM - SERUM 1.1 mg/dL (1.8-2.4); POTASSIUM - SERUM 3.4 mmol/L (3.5-5.1); PROTEIN - SERUM 4.3 g/dL (6.4-8.2)
[2019-11-06 07:58] LABS: WBC 7.6 10x3/uL (4.8-10.8)
[2019-11-06 08:37] VITALS: BP 119/89
[2019-11-06 12:00] VITALS: BP 130/82
--- NOTE | 2019-11-06 14:19 | NUR ---
3+ EDEMA NOTED TO LUE WITH EXTERMITY ELEVATED. PATIENT STATED HAD BEED SWOLLEN FOR A COUPLE OF WEEKS AND DR. PORTILLO HAD DONE ULTRASOUND THAT WAS NEGATIVE. DOPPLER DONE WITH GOOD REDIAL AND BRACHIAL PULSES WITH SKIN WARM AND DRY AND DENIES ANY PAIN OR DISCOMFORT.MEDIPORT INTACT TO LEFT SUBCLAVIAN AREA WITH NO S/S OF INFECTION/INFILTRATION. GARFIELD BRITO APN NOTIFIED OF STATUS.
--- NOTE | 2019-11-06 14:55 | MORECARE ---
CASE MANAGEMENT DISCHARGE SUMMARY PATIENT: RYAN JUDD UNIT: [id number] ADM DATE: 10/28/19 AGE: 74 : 43 SEX: M ROOM/BED: D.2232 AUTHOR: SERVANDODOC PHYSICIAN: REFERRING PHYSICIAN: JACE ANTHONY MD DATE OF SERVICE: 11/06/19 Discharge Plan Patient Name: RYAN JUDD Facility: [facility]:[place] : 1945 Planned Disposition: Anticipated Discharge Date: Discharge Date: Expected LOS: Initial Reviewer: [id number] Initial Review Date: 11/03/2019 Generated: 11/06/19 3:54 pm Comments DCP- Discharge Planning Updated by [id number]: Clara Mazariegos on 11/06/19 1:[address] Patient Name: RYAN JUDD Admission Status: ER Accout number: [id number] Admission Date: 10-28-2019 : 1945 Admission Diagnosis:ACUTE PANCREATITIS WITHOUT NECROSIS OR INFECTION, UNSP Attending: BHUPINDER Current LOS: 9 Anticipated DC Date: Planned Disposition: Primary Insurance: MEDICARE A & B Discharge Planning Comments: CM met with patient at bedside after explaining CM role and obtaining verbal consent. CM discussed availability / needs of home health, REHAB and medical equipment. PATIENT STATES WOULD LIKE . [facility] SIGNED FOR [facility] Nursing Home Admissions Director: Clara Mazariegos DCPIA - Discharge Planning Initial Assessment Updated by [email or web address]: Clara Mazariegos on 11/06/19 2:49 pm * Is the patient Alert and Oriented? Yes * PCP BETTY * Pharmacy [facility] * Preadmission Environment Home with Family * ADLs Independent * Equipment None * Community resources currently utilized None * Additional services required to return to the preadmission environment? No * Can the patient safely return to the preadmission environment? Yes * Has this patient been hospitalized within the prior 30 days at any hospital? No Coverage Notice Reviewer: [id number] - Clara Mazariegos Notice Issued Date-Time: 11/06/2019 14:50 Notice Type: Patient Choice Letter Notice Delivered To: Patient Relationship to Patient: Transcript Clerk Name: Delivery Method: HAND - Hand Delivered Roberta Days: Prior Verbal Notification: Recipient Understood Notice: Yes Recipient Signature: Yes Med Rec Note Co-signed by Attending: Coverage Notice Comment: [facility] Last DP export: 11/03/19 2:12 p Patient Name: RYAN JUDD Page [id number] at 1455 All edits/amendments must be made on the electronic document DICTATION DATE: 11/06/191453 CONCILIATOR: JOJO 11/06/191453 RPT#: [id number] DC DATE: STATUS: ADM IN [facility] [address] [place] [address] END OF REPORT
[2019-11-06 16:00] VITALS: BP 134/68
[2019-11-06 20:55] VITALS: BP 136/76
--- NOTE | 2019-11-07 03:33 | NUR ---
I have reviewed this patient and I concur with the Shift Assessment completed by the Licensed Practical Nurse today this shift.
[2019-11-07 06:20] LABS: HEMATOCRIT 31.7 % (42.0-54.0); HEMOGLOBIN 10.3 g/dL (13.5-17.5); MCH 32.1 pg (26.0-34.0); MCHC 32.5 g/dL (31.0-37.0); MCV 98.8 fL (80.0-100.0); MEAN PLATELET VOLUME 11.4 fL (7.4-10.4); PLATELET COUNT 95 10x3/uL (130-400); RBC 3.21 10x6/uL (4.20-6.10); RDW 21.3 % (11.5-14.5); WBC 7.3 10x3/uL (4.8-10.8)
[2019-11-07 06:31] LABS: ALBUMIN 1.7 g/dL (3.4-5.0); ANION GAP 12.8 mmol/L (8-16); BILIRUBIN - TOTAL 0.54 mg/dL (0.2-1.3); CALCIUM 7.7 mg/dL (8.5-10.1); CARBON DIOXIDE 17.9 mmol/L (21.0-32.0); CREATININE - SERUM 1.7 mg/dL (0.6-1.3); MAGNESIUM - SERUM 1.8 mg/dL (1.8-2.4); POTASSIUM - SERUM 3.7 mmol/L (3.5-5.1); PROTEIN - SERUM 4.5 g/dL (6.4-8.2)
[2019-11-07 08:05] LABS: BASOPHILS 1 % (0-2); EOSINOPHILS 3 % (0-7); LYMPHOCYTES 15 % (15-50); MONOCYTES 11 % (2-11); NEUTROPHILS 66 % (40-80); PLATELET ESTIMATE DECREASED
[2019-11-07 08:09] VITALS: BP 121/73
[2019-11-07 12:54] VITALS: BP 142/76
--- NOTE | 2019-11-07 14:48 | NUR ---
Nutrition follow-up: Pt receiving a regular as tolerated diet PO intake 50-100% average at meals labs reviewed WT: 156# +BM Pt feeling better; appetite improving RDN following.
[2019-11-07 17:24] VITALS: BP 144/76
[2019-11-07 20:00] VITALS: BP 127/68
[2019-11-08] VITALS: BP 157/75
[2019-11-08 04:00] VITALS: BP 120/65
--- NOTE | 2019-11-08 05:43 | NUR ---
I have reviewed this patient and I concur with the Shift Assessment completed by the Licensed Practical Nurse today this shift.
[2019-11-08 07:12] LABS: BASOPHILS 1.2 % (0-2); EOSINOPHILS 3.7 % (0-7); HEMATOCRIT 31.8 % (42.0-54.0); HEMOGLOBIN 10.1 g/dL (13.5-17.5); IMMATURE GRANULOCYTES 3.6 % (0-5); LYMPHOCYTES 19.8 % (15-50); MCH 31.9 pg (26.0-34.0); MCHC 31.8 g/dL (31.0-37.0); MCV 100.3 fL (80.0-100.0); MEAN PLATELET VOLUME 10.6 fL (7.4-10.4); MONOCYTES 11.6 % (2-11); NEUTROPHILS 60.1 % (40-80); RBC 3.17 10x6/uL (4.20-6.10); RDW 21.3 % (11.5-14.5); WBC 6.7 10x3/uL (4.8-10.8)
[2019-11-08 07:25] LABS: ALBUMIN 1.6 g/dL (3.4-5.0); ANION GAP 10.2 mmol/L (8-16); BILIRUBIN - TOTAL 0.5 mg/dL (0.2-1.3); CALCIUM 7.5 mg/dL (8.5-10.1); CARBON DIOXIDE 21.4 mmol/L (21.0-32.0); CREATININE - SERUM 1.5 mg/dL (0.6-1.3); MAGNESIUM - SERUM 1.5 mg/dL (1.8-2.4); POTASSIUM - SERUM 3.6 mmol/L (3.5-5.1); PROTEIN - SERUM 4.4 g/dL (6.4-8.2)
[2019-11-08 07:33] LABS: PLATELET COUNT 137 10x3/uL (130-400)
[2019-11-08 08:50] VITALS: BP 123/68
[2019-11-08 13:31] VITALS: BP 135/68
[2019-11-08 16:37] VITALS: BP 134/71
[2019-11-08 20:00] VITALS: BP 130/61
[2019-11-09] VITALS: BP 100/64
[2019-11-09 04:00] VITALS: BP 134/61
--- NOTE | 2019-11-09 06:55 | NUR ---
I have reviewed this patient and I concur with the Shift Assessment completed by the Licensed Practical Nurse today this shift.
--- NOTE | 2019-11-09 07:59 | NUR ---
Removed diez yesterday evening due to c/o pain around the area of insertion. No redness, swelling or discharge noted. Skin intact and WDL. Tolerated removal of diez well. Communicated immediate relief after it was DC'd. Has urinated several times since removal and is not experiencing any more pain in the area. Will continue to monitor. Needs anticipated and met.
[2019-11-09 08:00] VITALS: BP 125/57
[2019-11-09 08:50] LABS: BASOPHILS 1.4 % (0-2); EOSINOPHILS 3.6 % (0-7); HEMATOCRIT 33.5 % (42.0-54.0); HEMOGLOBIN 10.8 g/dL (13.5-17.5); IMMATURE GRANULOCYTES 1.4 % (0-5); LYMPHOCYTES 18.9 % (15-50); MCH 32.6 pg (26.0-34.0); MCHC 32.2 g/dL (31.0-37.0); MCV 101.2 fL (80.0-100.0); MEAN PLATELET VOLUME 10.5 fL (7.4-10.4); MONOCYTES 11.3 % (2-11); NEUTROPHILS 63.4 % (40-80); PLATELET COUNT 180 10x3/uL (130-400); RBC 3.31 10x6/uL (4.20-6.10); RDW 21.4 % (11.5-14.5); WBC 6.4 10x3/uL (4.8-10.8)
[2019-11-09 08:54] LABS: ALBUMIN 1.8 g/dL (3.4-5.0); ANION GAP 10.8 mmol/L (8-16); BILIRUBIN - TOTAL 0.63 mg/dL (0.2-1.3); CALCIUM 7.4 mg/dL (8.5-10.1); CARBON DIOXIDE 21.1 mmol/L (21.0-32.0); CREATININE - SERUM 1.4 mg/dL (0.6-1.3); MAGNESIUM - SERUM 1.4 mg/dL (1.8-2.4); POTASSIUM - SERUM 3.9 mmol/L (3.5-5.1); PROTEIN - SERUM 4.5 g/dL (6.4-8.2)
--- NOTE | 2019-11-09 10:53 | MORECARE ---
CASE MANAGEMENT DISCHARGE SUMMARY PATIENT: RYAN JUDD UNIT: [id number] ADM DATE: 10/28/19 AGE: 74 : 43 SEX: M ROOM/BED: D.2232 AUTHOR: SERVANDODOC PHYSICIAN: REFERRING PHYSICIAN: JACE ANTHONY MD DATE OF SERVICE: 11/09/19 Discharge Plan Patient Name: RYAN JUDD Facility: [facility]:[place] : 1945 Planned Disposition: Anticipated Discharge Date: Discharge Date: Expected LOS: Initial Reviewer: [id number] Initial Review Date: 11/03/2019 Generated: 11/09/19 11:52 am DCP- Discharge Planning Updated by [id number]: Clara Mazariegos on 11/06/19 1:[address] Patient Name: RYAN JUDD Admission Status: ER Accout number: [id number] Admission Date: 10-28-2019 : 1945 Admission Diagnosis:ACUTE PANCREATITIS WITHOUT NECROSIS OR INFECTION, UNSP Attending: BHUPINDER Current LOS: 9 Anticipated DC Date: Planned Disposition: Primary Insurance: MEDICARE A & B Discharge Planning Comments: CM met with patient at bedside after explaining CM role and obtaining verbal consent. CM discussed availability / needs of home health, REHAB and medical equipment. PATIENT STATES WOULD LIKE . [facility]IGNED FOR [facility] . Refining Supervisor: Clara Mazariegos DCPIA - Discharge Planning Initial Assessment Updated by [id number]: Clara Mazariegos on 11/06/19 2:49 pm * Is the patient Alert and Oriented? Yes * PCP BETTY * Pharmacy [facility] * Preadmission Environment Home with Family * ADLs Independent * Equipment None * Community resources currently utilized None * Additional services required to return to the preadmission environment? No * Can the patient safely return to the preadmission environment? Yes * Has this patient been hospitalized within the prior 30 days at any hospital? No External Providers External Provider: [facility] Next Contact Date: Service Request Date: Service Type: Resolution: Reviewer: Comments: Coverage Notice Reviewer: [id number] - Clara Mazariegos Notice Issued Date-Time: 11/06/2019 14:50 Notice Type: Patient Choice Letter Notice Delivered To: Patient Relationship to Patient: Record Press Operator Name: Delivery Method: HAND - Hand Delivered Roberta Days: Prior Verbal Notification: Recipient Understood Notice: Yes Recipient Signature: Yes Med Rec Note Co-signed by Attending: Coverage Notice Comment: [facility] Last DP export: 11/06/19 1:55 p Patient Name: RYAN JUDD Page 71287 at 1053 All edits/amendments must be made on the electronic document DICTATION DATE: 11/09/191051 PODIATRIST ASSISTANT: JOJO 11/09/19 105 RPT#: [id number] DC DATE: STATUS: ADM IN [facility] [address] [place] [address] END OF REPORT
[2019-11-09] MEDS ORDERED: QUESTRAN PACKET PO (11:02)
[2019-11-09] MEDS ORDERED: ELIQUIS5 MG PO (11:02)
[2019-11-09] MEDS ORDERED: FLORAJEN3 CAPS460 MG PO (11:03)
[2019-11-09 12:00] VITALS: BP 127/58
--- NOTE | 2019-11-09 15:55 | MORECARE ---
CASE MANAGEMENT DISCHARGE SUMMARY PATIENT: RYAN JUDD UNIT: [id number] ADM DATE: 10/28/19 AGE: 74 : 43 SEX: M ROOM/BED: D.2232 AUTHOR: SERVANDODOC PHYSICIAN: REFERRING PHYSICIAN: JACE ANTHONY MD DATE OF SERVICE: 11/09/19 Discharge Plan Patient Name: RYAN JUDD Facility: [facility]:[place] : 1945 Planned Disposition: Anticipated Discharge Date: Discharge Date: Expected LOS: Initial Reviewer: [email or web address] Initial Review Date: 11/03/2019 Generated: 11/09/19 4:55 pm Comments DCP- Discharge Planning Updated by [email or web address]: Clara Mazariegos on 11/09/19 2:[address] Patient Name: RYAN JUDD Admission Status: ER Accout number: [id number] Admission Date: 10-28-2019 : 1945 Admission Diagnosis:ACUTE PANCREATITIS WITHOUT NECROSIS OR INFECTION, UNSP Attending: BHPUINDER Current LOS: 12 Anticipated DC Date: Planned Disposition: Primary Insurance: MEDICARE A & B Discharge Planning Comments: PLAN FOR HOME TODAY. AT BEDSIDE. [facility] SIGNED. [facility] HH TO SEE PATIENT. [employer] Web Application Developer: Clara Mazariegos DCP- Discharge Planning Updated by [email or web address]: Clara Mazariegos on 11/06/19 1:[address] Patient Name: RYAN JUDD Admission Status: ER Accout number: [id number] Admission Date: 10-28-2019 : 1945 Admission Diagnosis:ACUTE PANCREATITIS WITHOUT NECROSIS OR INFECTION, UNSP Attending: BHUPINDER Current LOS: 9 Anticipated DC Date: Planned Disposition: Primary Insurance: MEDICARE A & B Discharge Planning Comments: CM met with patient at bedside after explaining CM role and obtaining verbal consent. CM discussed availability / needs of home health, REHAB and medical equipment. PATIENT STATES WOULD LIKE HH. [facility] SIGNED FOR [facility]. [employer] Web Application Developer: Clara Mazariegos DCPIA - Discharge Planning Initial Assessment Updated by [email or web address]: Clara Mazariegos on 11/06/19 2:49 pm * Is the patient Alert and Oriented? Yes * PCP BETTY * Pharmacy [facility] * Preadmission Environment Home with Family * ADLs Independent * Equipment None * Community resources currently utilized None * Additional services required to return to the preadmission environment? No * Can the patient safely return to the preadmission environment? Yes * Has this patient been hospitalized within the prior 30 days at any hospital? No Coverage Notice Reviewer: [id number] Nevin Mazariegos Notice Issued Date-Time: 11/06/2019 14:50 Notice Type: Patient Choice Letter Notice Delivered To: Patient Relationship to Patient: Paper Machine Tender Name: Delivery Method: HAND - Hand Delivered Roberta Days: Prior Verbal Notification: Recipient Understood Notice: Yes Recipient Signature: Yes Med Rec Note Co-signed by Attending: Coverage Notice Comment: [facility] Reviewer: [id number] Nevin Mazariegos Notice Issued Date-Time: 11/09/2019 15:51 Notice Type: IM Discharge Notice Notice Delivered To: Patient Relationship to Patient: Paper Machine Tender Name: Delivery Method: - Roberta Days: Prior Verbal Notification: Recipient Understood Notice: Recipient Signature: Med Rec Note Co-signed by Attending: Coverage Notice Comment: Last DP export: 11/09/19 9:53 a Patient Name: RYAN JUDD Page [phone] at 1555 All edits/amendments must be made on the electronic document DICTATION DATE: 11/09/191554 TAWER: JOJO 11/09/19 155 RPT#: [id number] DC DATE: STATUS: ADM IN [facility] [address] [place] [address] END OF REPORT
--- NOTE | 2019-11-13 09:22 | MORECARE ---
CASE MANAGEMENT DISCHARGE SUMMARY PATIENT: RYAN JUDD UNIT: [id number] ADM DATE: 10/28/19 AGE: 74 : 43 SEX: M ROOM/BED: D.2232 AUTHOR: SERVANDODOC PHYSICIAN: REFERRING PHYSICIAN: JACE ANTHONY MD DATE OF SERVICE: 11/13/19 Discharge Plan Patient Name: RYAN JUDD Facility: [facility]:[place] : 1945 Planned Disposition: Anticipated Discharge Date: Discharge Date: 11/09/2019 Expected LOS: Initial Reviewer: [email or web address] Initial Review Date: 11/03/2019 Generated: 11/13/19 10:22 am Comments DCP- Discharge Planning Updated by [email or web address]: Clara Mazariegos on 11/09/19 2:[address] Patient Name: RYAN JUDD Admission Status: ER Accout number: [id number] Admission Date: 10-28-2019 : 1945 Admission Diagnosis:ACUTE PANCREATITIS WITHOUT NECROSIS OR INFECTION, UNSP Attending: BHUPINDER Current LOS: 12 Anticipated DC Date: Planned Disposition: Primary Insurance: MEDICARE A & B Discharge Planning Comments: PLAN FOR HOME TODAY. AT BEDSIDE. IMM SIGNED. [facility] TO SEE PATIENT. Stockroom Inventory Clerk: Clara Mazariegos DCP- Discharge Planning Updated by [email or web address]: Clara Mazariegos on 11/06/19 1:[address] Patient Name: RYAN JUDD Admission Status: ER Accout number: [id number] Admission Date: 10-28-2019 : 1945 Admission Diagnosis:ACUTE PANCREATITIS WITHOUT NECROSIS OR INFECTION, UNSP Attending: BHUPINDER Current LOS: 9 Anticipated DC Date: Planned Disposition: Primary Insurance: MEDICARE A & B Discharge Planning Comments: CM met with patient at bedside after explaining CM role and obtaining verbal consent. CM discussed availability / needs of home health, REHAB and medical equipment. PATIENT STATES WOULD LIKE HH. [facility] SIGNED FOR [facility]. Stockroom Inventory Clerk: Clara Mazariegos DCPIA - Discharge Planning Initial Assessment Updated by [id number]: Clara Mazariegos on 11/06/19 2:49 pm * Is the patient Alert and Oriented? Yes * PCP BETTY * Pharmacy [facility] * Preadmission Environment Home with Family * ADLs Independent * Equipment None * Community resources currently utilized None * Additional services required to return to the preadmission environment? No * Can the patient safely return to the preadmission environment? Yes * Has this patient been hospitalized within the prior 30 days at any hospital? No Coverage Notice Reviewer: [id number] Nevin Mazariegos Notice Issued Date-Time: 11/06/2019 14:50 Notice Type: Patient Choice Letter Notice Delivered To: Patient Relationship to Patient: Hair Dresser Name: Delivery Method: HAND - Hand Delivered Roberta Days: Prior Verbal Notification: Recipient Understood Notice: Yes Recipient Signature: Yes Med Rec Note Co-signed by Attending: Coverage Notice Comment: [facility] Reviewer: [id number] Nevin Mazariegos Notice Issued Date-Time: 11/09/2019 15:51 Notice Type: IM Discharge Notice Notice Delivered To: Patient Relationship to Patient: Hair Dresser Name: Delivery Method: - Roberta Days: Prior Verbal Notification: Recipient Understood Notice: Recipient Signature: Med Rec Note Co-signed by Attending: Coverage Notice Comment: Last DP export: 11/09/19 2:55 p Patient Name: RYAN JUDD Page [phone] at 0922 All edits/amendments must be made on the electronic document DICTATION DATE: 11/13/19921 PLAYGROUND ATTENDANT: JOJO 11/13/19921 RPT#: [id number] DC DATE:11/09/19 STATUS: DIS IN [facility] [address] [place] [address] END OF REPORT
== END 2019-11-09 20:45 | disposition home or self-care (01) | DRG 438 ==
LOC: D.ER 09:44 → D.MS 13:34 → D.ICU 11-02 08:26 → D.MS 11-03 10:50
PROVIDERS: Family Medicine; Internal Medicine Nephrology; ADMIT Family Medicine; ATTEND Family Medicine
DX: K85.90 Acute pancreatitis without necrosis or infection, unspecified (principal); N17.0 Acute kidney failure with tubular necrosis; C25.9 Malignant neoplasm of pancreas, unspecified; C78.7 Secondary malignant neoplasm of liver and intrahepatic bile duct; R78.81 Bacteremia; E87.2 Acidosis; D64.81 Anemia due to antineoplastic chemotherapy; E87.6 Hypokalemia; R73.9 Hyperglycemia, unspecified; I10 Essential (primary) hypertension; J45.909 Unspecified asthma, uncomplicated; E03.9 Hypothyroidism, unspecified; K21.9 Gastro-esophageal reflux disease without esophagitis; K22.2 Esophageal obstruction; R10.9 Unspecified abdominal pain; D70.2 Other drug-induced agranulocytosis; T45.1X5A Adverse effect of antineoplastic and immunosuppressive drugs, initial encounter; A49.8 Other bacterial infections of unspecified site; N20.0 Calculus of kidney

== ENCOUNTER 2019-11-23 14:22 | Outpatient (CLI) | payer MEDICARE, OTHER ==
[2019-11-01 18:23] VITALS: BMI 23.2
[~2019-11-23 14:22] MED LIST changes: +ELIQUIS5 MG PO; +FLORAJEN3 CAPS460 MG PO; +LASIX20 MG PO; +MEGACE40 MG PO; +QUESTRAN PACKET PO; +ULTRAM50 MG PO
== END 2019-11-23 14:24 | disposition home or self-care (01) ==
LOC: D.US 14:22
PROVIDERS: ATTEND Internal Medicine Medical Oncology
DX: C25.0 Malignant neoplasm of head of pancreas (principal); C78.7 Secondary malignant neoplasm of liver and intrahepatic bile duct; R60.0 Localized edema; E86.0 Dehydration; R11.2 Nausea with vomiting, unspecified; D64.81 Anemia due to antineoplastic chemotherapy; D63.1 Anemia in chronic kidney disease